=== PATIENT | male | born 1965 | race Caucasian/White ===

== ENCOUNTER → 2016-07-07 | Outpatient (REF) | payer MEDICARE, MEDICAID, OTHER ==
[~2016-07-07] MED LIST: /AUGM875TA; AMLO10TA PO; AUGM875T27 PO; ENAL20TA; ENAL20TA PO; ENAL5TAB; ENALAPRIL; GLUC500T; HUMA75VL; HYDR12.55 PO; INSUHUMDS IV; INSULADS SUBQ; LASI40TA PO; OMEGCAP4 PO; PERCOCET PO; SITA50TAB PO; TRIC145T PO; VITA50003 PO
== END | disposition home or self-care (01) ==
LOC: M LAB REF 12:37
PROVIDERS: ATTEND Surgery
DX: E11.621 Type 2 diabetes mellitus with foot ulcer (principal); L97.412 Non-pressure chronic ulcer of right heel and midfoot with fat layer exposed

== ENCOUNTER → 2016-07-23 | Outpatient (CLI) | payer OTHER ==
--- NOTE | 2016-07-23 12:31 | REP ---
MRI RIGHT FOOT WITHOUT AND WITH IV GADOLINIUM: HISTORY: Type 2 diabetes. Ulcer on the bottom lateral aspect of the right foot. Comparison radiographs October 29, 2013. TECHNIQUE: Sagittal axial and coronal imaging planes utilized for T1 proton density and T2-weighted scans obtain in the usual fashion with without fat saturation. Post-gadolinium enhanced T1 weighted scanning was performed. Gadolinium enhancement dose 13 mL of intravenous ProHance. Half dose protocol. MR FINDINGS: There is advanced neuropathic arthropathy affecting the right midfoot. The 5th toe has been amputated at the level of the proximal end of the 5th metatarsal. Cortical and medullary bone signal intensity are normal in the metatarsals and phalanges. There is dermal thickening and subdermal edema laterally and inferiorly. A skin defect consistent with a wound is seen on the volar aspect adjacent to the proximal 4th and 5th metatarsal tarsal joint region. There is some contrast enhancement in this soft tissue but no evidence of abscess or osteomyelitis is seen. 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 Soft tissue defect and considerable edema in the soft tissues. Status post amputation of the 5th digit. No MR evidence of osteomyelitis or abscess seen. Signed by Roney Owen MD 07/23/2016 02:40 P
== END | disposition home or self-care (01) ==
LOC: M RAD 08:47
PROVIDERS: ATTEND Surgery
DX: E11.621 Type 2 diabetes mellitus with foot ulcer (principal); Z89.421 Acquired absence of other right toe(s); M14.671 Charcot's joint, right ankle and foot
CPT/HCPCS: 73720; A9576

== ENCOUNTER → 2016-11-08 | Outpatient (CLI) | payer MEDICARE ==
[2016-11-08 14:14] LABS: CALCIUM LEVEL 9.3 MG/DL (8.5-10.1); CREATININE FOR GFR 1.56 MG/DL (0.70-1.30); GLOMERULAR FILTRATION RATE 50.4 (>56); POTASSIUM SERUM 4.5 MEQ/L (3.5-5.1)
== END ==
LOC: M SMT 11:14
PROVIDERS: ATTEND Nurse Practitioner Family
DX: I10 Essential (primary) hypertension (principal)

== ENCOUNTER → 2016-11-24 | Outpatient (CLI) | payer MEDICARE | LOC: M SMT 08:57 | PROVIDERS: ATTEND Nurse Practitioner Family | DX: E55.9 Vitamin D deficiency, unspecified (principal); E78.4 Other hyperlipidemia ==

== ENCOUNTER → 2017-07-29 | Outpatient (CLI) | payer MEDICARE ==
[2017-07-29 14:21] LABS: CHOLESTEROL LEVEL 128 MG/DL (<200); CHOLESTEROL RISK RATIO 4.923 (<5); HDL CHOLESTEROL 26 MG/DL (>40); LDL CHOLESTEROL 45.2 MG/DL (<100); NON-HDL-C 102 MG/DL; TRIGLYCERIDES LEVEL 284 MG/DL (<150)
== END ==
LOC: M SMT 08:36
DX: E78.4 Other hyperlipidemia (principal)

== ENCOUNTER → 2017-07-29 | Outpatient (CLI) | payer MEDICARE ==
[2017-07-29 14:16] LABS: TOTAL 25(OH) VITAMIN D 26.4 NG/ML (30.0-100.0)
[2017-07-29 14:20] LABS: ALBUMIN 3.8 GM/DL (3.2-5.2); ALBUMIN/GLOBULIN RATIO 1.03 (1.00-1.93); ALKALINE PHOSPHATASE 46 U/L (45-117); ALT/SGPT 40 U/L (12-78); ANION GAP 6 MEQ/L (8-16); AST/SGOT 25 U/L (7-37); BILIRUBIN,TOTAL 0.2 MG/DL (0.2-1.0); BLOOD UREA NITROGEN 37 MG/DL (7-18); CALCIUM LEVEL 9.7 MG/DL (8.5-10.1); CARBON DIOXIDE LEVEL 28 MEQ/L (21-32); CHLORIDE LEVEL 104 MEQ/L (98-107); CHOLESTEROL LEVEL 127 MG/DL (<200); CREATININE FOR GFR 1.78 MG/DL (0.70-1.30); GLOMERULAR FILTRATION RATE 43.1 (>56); GLUCOSE, FASTING 205 MG/DL (70-100); HDL CHOLESTEROL 25 MG/DL (>40); LDL CHOLESTEROL 45.8 MG/DL (<100); NON-HDL-C 102 MG/DL; POTASSIUM SERUM 4.8 MEQ/L (3.5-5.1); SODIUM LEVEL 138 MEQ/L (136-145); TOTAL PROTEIN 7.5 GM/DL (6.4-8.2); TRIGLYCERIDES LEVEL 281 MG/DL (<150)
[2017-07-29 15:07] LABS: MAU/CREAT RATIO 438.8 MCG/MG (0.0-30.0)
== END ==
LOC: M SMT 08:42
DX: E11.65 Type 2 diabetes mellitus with hyperglycemia (principal); Z79.4 Long term (current) use of insulin; E55.9 Vitamin D deficiency, unspecified; E78.4 Other hyperlipidemia
CPT/HCPCS: 84443

== ENCOUNTER → 2018-02-23 | Outpatient (CLI) | payer MEDICARE ==
[2018-02-23 14:18] LABS: CHOLESTEROL LEVEL 119 MG/DL (<200); HDL CHOLESTEROL 25 MG/DL (>40); LDL CHOLESTEROL 51.8 MG/DL (<100); NON-HDL-C 94 MG/DL; TRIGLYCERIDES LEVEL 211 MG/DL (<150)
== END ==
LOC: M SMT 09:11
DX: E78.4 Other hyperlipidemia (principal)
CPT/HCPCS: 80061

== ENCOUNTER → 2018-03-09 | Outpatient (REF) | payer MEDICARE ==
[2018-03-09 15:09] LABS: FERRITIN 94 NG/ML (26-388); IRON (FE) 64 UG/DL (65-175); PERCENT SATURATION 20.6 % (19.7-50.0); TOTAL IRON BINDING CAPACITY 310 UG/DL (250-450)
[2018-03-09 16:48] LABS: FOLATE 12.9 NG/ML (>5.4); VITAMIN B12 LEVEL 374 PG/ML (247-911)
== END ==
LOC: M LAB REF 14:20
DX: D64.9 Anemia, unspecified (principal)
CPT/HCPCS: 82746

== ENCOUNTER → 2018-04-27 | Outpatient (CLI) | payer MEDICARE, MEDICAID ==
[2018-04-27 18:00] LABS: TOTAL 25(OH) VITAMIN D 26.8 NG/ML (30.0-100.0)
[2018-04-30 00:06] LABS: PSA TOTAL 0.4 ng/mL (0.0-4.0)
== END ==
LOC: M SMT 10:34
DX: E55.9 Vitamin D deficiency, unspecified (principal); Z12.5 Encounter for screening for malignant neoplasm of prostate; Z79.899 Other long term (current) drug therapy
CPT/HCPCS: 82306

== ENCOUNTER → 2018-05-18 | Outpatient (REF) | payer BC ==
[~2018-05-18] MED LIST changes: -AUGM875T27 PO; +AUGM875T28 PO; -TRIC145T PO; +TRIC145T22 PO; -VITA50003 PO; +VITA50005 PO
[2018-05-18 13:10] LABS: HEMATOCRIT 38.1 % (42.0-52.0); HEMOGLOBIN 12.4 g/dl (13.5-17.5); MEAN CORPUSCULAR HEMOGLOBIN 29.7 pg (27.0-33.0); MEAN CORPUSCULAR HGB CONC 32.5 g/dl (32.0-36.5); MEAN CORPUSCULAR VOLUME 91.1 fl (80.0-96.0); PLATELET COUNT, AUTOMATED 314 10^3/uL (150-450); RED BLOOD COUNT 4.18 10^6/uL (4.30-6.10)
[2018-05-18 13:35] LABS: ALBUMIN 3.3 GM/DL (3.2-5.2); BILIRUBIN,TOTAL 0.2 MG/DL (0.2-1.0); C REACTIVE PROTEIN QUANTITATIV 0.39 MG/DL (0.00-0.30); CALCIUM LEVEL 9.3 MG/DL (8.5-10.1); CREATININE FOR GFR 1.63 MG/DL (0.70-1.30); ERYTHROCYTE SEDIMENTATION RATE 44 mm/hr (0-20); GLOMERULAR FILTRATION RATE 47.7 (>56); POTASSIUM SERUM 4.6 MEQ/L (3.5-5.1); TOTAL PROTEIN 7.4 GM/DL (6.4-8.2)
== END ==
LOC: M LAB REF 12:26
PROVIDERS: ATTEND Surgery
DX: E11.621 Type 2 diabetes mellitus with foot ulcer (principal)

== ENCOUNTER 2018-09-30 21:07 | Emergency (ER) | payer MEDICARE, MEDICAID ==
[~2018-09-30] VITALS: Ht 177.8 cm; Wt 125.0 kg
[~2018-09-30 21:07] MED LIST changes: -LASI40TA PO; +LASI40TA9 PO
[2018-09-30 21:08] VITALS: BP 145/72
[2018-09-30] MEDS ORDERED: LEVA1TAB2 PO (21:39)
[2018-09-30] MEDS: LevoFLOXacin 500 MG TABLET PO ONE (21:45)
[2018-09-30] MEDS: LIDOCAINE 1% SDV 5 ML VIAL DILUENT ONE (21:45)
[2018-09-30] MEDS: cefTRIAXone SOD 1 GM VIAL (J0696) IM ONE (21:45)
== END 2018-09-30 21:55 | disposition home or self-care (01) ==
LOC: M ED 21:07
DX: L03.116 Cellulitis of left lower limb (principal); I12.9 Hypertensive chronic kidney disease with stage 1 through stage 4 chronic kidney disease, or unspecified chronic kidney disease; E11.9 Type 2 diabetes mellitus without complications; K21.9 Gastro-esophageal reflux disease without esophagitis; Z79.4 Long term (current) use of insulin; Z79.899 Other long term (current) drug therapy
CPT/HCPCS: 96372; 99282; J0696

== ENCOUNTER → 2018-11-09 | Outpatient (REF) | payer MEDICARE, MEDICAID, OTHER ==
[~2018-11-09] MED LIST changes: +LEVA1TAB2 PO
[2018-11-09 14:21] LABS: HEMOGLOBIN A1c 6.2 %
[2018-11-09 14:24] LABS: CHOLESTEROL RISK RATIO 4.461 (<5)
== END ==
LOC: M LAB REF 13:36
PROVIDERS: ATTEND Nurse Practitioner Family
DX: E11.9 Type 2 diabetes mellitus without complications (principal)

== ENCOUNTER → 2018-11-17 | Outpatient (CLI) | payer MEDICARE, MEDICAID ==
--- NOTE | 2018-11-18 07:35 | REP ---
REASON: Palpable ventral hernia. Multiple sonographic images of the intra-abdominal wall show no evidence of a ventral hernia. Areas of decreased echoes were seen deep in the deepest subcutanea suggestive of edematous thickened tissue. This was seen to the left of the umbilicus and needs to be correlated clinically. IMPRESSION: No hernia. Findings as described above. Electronically Signed by Christos Carrillo DO 11/18/2018 08:29 A
== END ==
LOC: M RAD 14:43
PROVIDERS: ATTEND Nurse Practitioner Family
DX: Z87.19 Personal history of other diseases of the digestive system (principal)

== ENCOUNTER → 2018-12-25 | Outpatient (CLI) | payer MEDICARE, MEDICAID ==
--- NOTE | 2018-12-25 09:06 | REP ---
Bilateral lower extremity arterial duplex ultrasound: Right lower extremity: Right brachial artery peak systole: 128 mmHg. Right dorsalis pedis peak systole: 158 mmHg. Right HAND BOX FOLDER peak systole 146 mmHg. Right ZAHIRA: 1.2 Peak Systolic Phasicity Velocity TANK TRUCK ENGINE MECHANIC 128.1 triphasic Profunda 97.0 no biphasic SFA prox 114.2 triphasic SFA mid 115.0 triphasic SFA dist 124.4 triphasic Pop 92.5 triphasic GIN prox 52.9 biphasic Tib/P tr 90.6 triphasic HAND BOX FOLDER pr 74.0 triphasic HAND BOX FOLDER dst 100.3 triphasic GIN dst 93.2 triphasic t Left lower extremity: Left brachial artery peak systole: 100 mmHg. Left dorsalis pedis peak systole: 152 mmHg. HAND BOX FOLDER peak systole: 138 mmHg. ZAHIRA 1.2 Peak Systolic Phasicity Velocity TANK TRUCK ENGINE MECHANIC 94.8 triphasic Profunda 78.7 triphasic SFA prox 99.0 triphasic SFA mid 120.7 triphasic SFA dist 106.3 triphasic Pop 94.8 triphasic GIN prox 55.9 triphasic Tib/P tr 67.1 triphasic HAND BOX FOLDER pr 48.1 triphasic HAND BOX FOLDER dst 56.5 triphasic GIN dst 54.5 triphasic There is mild atheromatous plaque bilaterally. There are triphasic waveforms bilaterally except for a biphasic wave form in the right profunda. No significant stenosis is identified on the right or the left. Electronically Signed by Dm Pinedo MD 12/25/2018 08:57 A
== END ==
LOC: M RAD 07:26
PROVIDERS: ATTEND Physician Assistant
DX: I25.10 Atherosclerotic heart disease of native coronary artery without angina pectoris (principal); E11.621 Type 2 diabetes mellitus with foot ulcer

== ENCOUNTER → 2019-01-19 | Outpatient (REF) | payer MEDICARE, MEDICAID | LOC: M SFHCPLAZ 12:24 → M LAB REF 12:24 | PROVIDERS: ATTEND Physician Assistant | DX: D18.01 Hemangioma of skin and subcutaneous tissue (principal); E11.621 Type 2 diabetes mellitus with foot ulcer ==

== ENCOUNTER → 2019-02-08 | Outpatient (REF) | payer MEDICARE, MEDICAID | LOC: M LAB LCGH 09:35 | PROVIDERS: ATTEND Nurse Practitioner Family | DX: L85.9 Epidermal thickening, unspecified (principal); L91.8 Other hypertrophic disorders of the skin; R23.8 Other skin changes ==

== ENCOUNTER 2019-02-25 19:10 | Emergency (ER) | payer MEDICARE, MEDICAID ==
[~2019-02-25] VITALS: Ht 177.8 cm; Wt 131.8 kg
[2019-02-25 20:21] LABS: BASO % 0.3 % (0.0-1.0); EOS % 0.2 % (0.0-3.0); HEMATOCRIT 39.3 % (42.0-52.0); HEMOGLOBIN 13.5 g/dl (13.5-17.5); LYMPH # 0.3 10^3/uL (1.5-4.5); LYMPH % 2.2 % (24.0-44.0); MEAN CORPUSCULAR HEMOGLOBIN 30.3 pg (27.0-33.0); MEAN CORPUSCULAR HGB CONC 34.4 g/dl (32.0-36.5); MEAN CORPUSCULAR VOLUME 88.3 fl (80.0-96.0); MONO # 0.6 10^3/uL (0.0-0.8); MONO % 3.6 % (0.0-5.0); NEUTROPHILS # 14.4 10^3/uL (1.8-7.7); PLATELET COUNT, AUTOMATED 279 10^3/uL (150-450); RED BLOOD COUNT 4.45 10^6/uL (4.30-6.10); WHITE BLOOD COUNT 15.5 10^3/uL (4.0-10.0)
[2019-02-25 20:49] LABS: ALBUMIN 3.3 GM/DL (3.2-5.2); BILIRUBIN,TOTAL 0.4 MG/DL (0.2-1.0); CREATININE FOR GFR 2.12 MG/DL (0.70-1.30); GLOMERULAR FILTRATION RATE 35.1 (>56); POTASSIUM SERUM 3.8 MEQ/L (3.5-5.1); TOTAL PROTEIN 7.3 GM/DL (6.4-8.2)
[2019-02-25] MEDS ORDERED: ACETAMINOPHEN 325 MG TAB PO ONE (21:15)
[2019-02-25 21:27] LABS: C REACTIVE PROTEIN QUANTITATIV 1.32 MG/DL (0.00-0.30)
[2019-02-25 21:44] LABS: ERYTHROCYTE SEDIMENTATION RATE 27 mm/hr (0-20)
[2019-02-25] MEDS ORDERED: NS 1,000 ML IV ONE (22:15)
[2019-02-25] MEDS ORDERED: cefTRIAXone SOD 2 GM in D5W MINI-BAG PLUS 50 ML IV ONE (22:45)
[2019-02-25] MEDS ORDERED: AUGM875T28 PO (23:56)
[2019-02-26 00:04] VITALS: BP 105/55
--- NOTE | 2019-02-27 08:44 | REP ---
Clinical: Fever . Comparison: 07/26/2013 . Technique: PA and lateral. Findings: The mediastinum and cardiac silhouette are normal. The lung hagen are clear and without acute consolidation, effusion, or pneumothorax. The skeletal structures are intact and normal. Impression: 1. No acute cardiopulmonary process. Electronically Signed by Arya Cuba MD 02/26/2019 01:07 A
== END 2019-02-26 00:46 | disposition home or self-care (01) ==
LOC: M ED 19:10
DX: L03.115 Cellulitis of right lower limb (principal); L03.116 Cellulitis of left lower limb; E11.9 Type 2 diabetes mellitus without complications; I10 Essential (primary) hypertension; K21.9 Gastro-esophageal reflux disease without esophagitis; Z79.899 Other long term (current) drug therapy; Z79.4 Long term (current) use of insulin
CPT/HCPCS: 71046; 80053; 83605; 85025; 85652; 86140; 87040; 96361; 96365; 99283; J0696

== ENCOUNTER → 2019-03-28 | Outpatient (REF) | LOC: M LAB LCGH 13:15 | PROVIDERS: ATTEND Nurse Practitioner Family | DX: L91.8 Other hypertrophic disorders of the skin (principal); R23.8 Other skin changes ==

== ENCOUNTER → 2019-04-26 | Outpatient (REF) | payer MEDICARE, MEDICAID ==
[2019-04-26 12:26] LABS: HEMATOCRIT 41.5 % (42.0-52.0); HEMOGLOBIN 13.9 g/dl (13.5-17.5); MEAN CORPUSCULAR HGB CONC 33.5 g/dl (32.0-36.5); MEAN CORPUSCULAR VOLUME 92.6 fl (80.0-96.0); PLATELET COUNT, AUTOMATED 295 10^3/uL (150-450); RED BLOOD COUNT 4.48 10^6/uL (4.30-6.10); WHITE BLOOD COUNT 5.1 10^3/uL (4.0-10.0)
[2019-04-26 12:41] LABS: ALBUMIN 3.7 GM/DL (3.2-5.2); BILIRUBIN,TOTAL 0.4 MG/DL (0.2-1.0); CALCIUM LEVEL 9.3 MG/DL (8.5-10.1); CREATININE FOR GFR 1.62 MG/DL (0.70-1.30); GLOMERULAR FILTRATION RATE 47.9 (>56); POTASSIUM SERUM 4.5 MEQ/L (3.5-5.1); TOTAL PROTEIN 7.4 GM/DL (6.4-8.2)
== END ==
LOC: M SFHCPLAZ 12:12
PROVIDERS: ATTEND Physician Assistant
DX: E11.621 Type 2 diabetes mellitus with foot ulcer (principal)

== ENCOUNTER → 2019-06-22 | Outpatient (CLI) | payer MEDICARE ==
[2019-06-22 18:25] LABS: ALBUMIN 2.5 GM/DL (3.2-5.2); ALT/SGPT 24 U/L (12-78); BILIRUBIN,DIRECT < 0.1 MG/DL (0.0-0.2); BILIRUBIN,TOTAL 0.2 MG/DL (0.2-1.0); BLOOD UREA NITROGEN 26 MG/DL (7-18); CALCIUM LEVEL 8.4 MG/DL (8.5-10.1); CARBON DIOXIDE LEVEL 24 MEQ/L (21-32); CHLORIDE LEVEL 110 MEQ/L (98-107); CREATININE FOR GFR 1.69 MG/DL (0.70-1.30); GLOMERULAR FILTRATION RATE 45.4 (>56); GLUCOSE, FASTING 121 MG/DL (70-100); NT-PRO BNP 188 PG/ML (<125); SODIUM LEVEL 142 MEQ/L (136-145); TOTAL PROTEIN 5.9 GM/DL (6.4-8.2)
== END ==
LOC: M PLALAB 14:16
PROVIDERS: ATTEND Student in an Organized Health Care Education/Training Program
DX: I10 Essential (primary) hypertension (principal); E11.621 Type 2 diabetes mellitus with foot ulcer; L97.413 Non-pressure chronic ulcer of right heel and midfoot with necrosis of muscle
CPT/HCPCS: 36415; 80048; 80076; 83880; G0277

== ENCOUNTER → 2019-06-22 | Outpatient (REF) | payer MEDICARE | LOC: M SFHCPLAZ 07:33 | PROVIDERS: ATTEND Family Medicine | DX: I10 Essential (primary) hypertension (principal); Z53.8 Procedure and treatment not carried out for other reasons ==

== ENCOUNTER → 2019-07-05 | Outpatient (CLI) | payer MEDICARE ==
--- NOTE | 2019-07-05 21:03 | REP ---
Clinical: Hypertension and chronic medical renal disease. Technique: Rosa scale and color Doppler evaluation of the kidneys and renal vasculature using curved array transducer. Findings: The kidneys demonstrate renovascular calcifications and increased central sinus fat consistent with chronic renal disease. No hydronephrosis. Right kidney measures 15.1 x 8.5 x 7.2 cm . Left kidney measures 15.0 x 7.0 x 7.4 cm and includes 1.1 cm and 1.3 cm lower pole cysts . Bladder is incompletely distended and grossly normal by current evaluation. Color Doppler evaluation of the renal vasculature demonstrates normal arterial wave patterns, velocities, renal aortic ratios, resistive indices and the acceleration time. No sonographic evidence for renal arterial stenosis noted. Renal vein is patent. Right Kidney: Peak arterial velocity: 153 cm/sec . Renal aortic ratio: 1.2 . Resistive indices: 0.71 - 0.82 . Acceleration times: 0.02 - 0.03 . Left kidney: Peak arterial velocity: 190 cm/sec . Renal aortic ratio: 1.5 . Resistive indices: 0.67 - 0.74 . Acceleration times: 0.02 - 0.03 . Impression: 1. Evidence for chronic medical renal disease without hydronephrosis. 2. No sonographic evidence to suggest renal arterial stenosis. Electronically Signed by Arya Cuba MD 07/05/2019 08:54 P
--- NOTE | 2019-07-05 21:05 | REP ---
Clinical: Urinary frequency. Technique: Real time haney scale and color evaluation using curved array transducer. Findings: The bladder is normal in appearance and without wall thickening or mass lesion. Bilateral ureteral jets are identified. Prevoid bladder measures 9.2 x 5.9 x 3.8 cm (135 ml). Postvoid bladder measures 7.6 x 3.8 x 2.8 cm (53 ml). Postvoid residual equals 39%. Impression: Increased postvoid residual volume. Electronically Signed by Arya Cuba MD 07/05/2019 08:56 P
== END ==
LOC: M RAD 06:58
PROVIDERS: ATTEND Nurse Practitioner Family
DX: N18.3 Chronic kidney disease, stage 3 (moderate) (principal)

== ENCOUNTER → 2019-07-09 | Outpatient (CLI) | payer MEDICARE ==
--- NOTE | 2019-07-09 20:42 | REP ---
Clinical: Charcot's foot. Technique: AP, lateral, bilateral oblique views of the right foot. Comparison: 10/29/2013 Findings: Evidence for prior amputation to the fifth toe. Extensive destructive and dystrophic changes involving the midfoot consistent with the given history of Charcot foot and essentially unchanged when compared to prior examination. Overlying soft tissues are grossly unremarkable and without subcutaneous emphysema or foreign body. Impression: Extensive destructive and dystrophic changes to the midfoot consistent with Charcot's foot and essentially unchanged. Electronically Signed by Arya Cuba MD 07/09/2019 08:34 P
== END ==
LOC: M RAD 10:07
PROVIDERS: ATTEND Physician Assistant
DX: E11.9 Type 2 diabetes mellitus without complications (principal)

== ENCOUNTER → 2019-07-13 | Outpatient (REF) | payer MEDICARE ==
[2019-07-13 14:31] LABS: ALBUMIN 2.3 GM/DL (3.2-5.2); CALCIUM LEVEL 8.6 MG/DL (8.5-10.1); CREATININE FOR GFR 1.72 MG/DL (0.70-1.30); GLOMERULAR FILTRATION RATE 44.5 (>56); MAGNESIUM LEVEL 1.9 MG/DL (1.8-2.4); PHOSPHORUS LEVEL 3.8 MG/DL (2.5-4.9); POTASSIUM SERUM 4.1 MEQ/L (3.5-5.1); URIC ACID 3.8 MG/DL (3.5-7.2)
== END ==
LOC: M LAB REF 14:04
PROVIDERS: ATTEND Nurse Practitioner Family
DX: N18.3 Chronic kidney disease, stage 3 (moderate) (principal); M10.9 Gout, unspecified; E83.42 Hypomagnesemia

== ENCOUNTER → 2020-03-03 | Outpatient (CLI) | payer MEDICARE, MEDICAID ==
[~2020-03-03] MED LIST changes: -ENAL20TA PO; +ENAL20TA11 PO
[2020-03-03 18:24] LABS: CALCIUM LEVEL 9.3 MG/DL (8.5-10.1); CREATININE FOR GFR 3.18 MG/DL (0.70-1.30); GLOMERULAR FILTRATION RATE 21.9 (>56)
[2020-03-03 18:38] LABS: HEMOGLOBIN A1c 6.5 %
== END ==
LOC: M PLALAB 15:48
PROVIDERS: ATTEND Internal Medicine Endocrinology, Diabetes & Metabolism
DX: I15.8 Other secondary hypertension (principal); E11.65 Type 2 diabetes mellitus with hyperglycemia; Z79.4 Long term (current) use of insulin

== ENCOUNTER → 2020-04-18 | Outpatient (REF) | payer MEDICARE ==
[2020-04-18 17:49] LABS: CALCIUM LEVEL 9.5 MG/DL (8.5-10.1); CREATININE FOR GFR 3.52 MG/DL (0.70-1.30); GLOMERULAR FILTRATION RATE 19.5 (>56); POTASSIUM SERUM 3.7 MEQ/L (3.5-5.1)
== END ==
LOC: M SFHCPLAZ 14:47
PROVIDERS: ATTEND Family Medicine
DX: I10 Essential (primary) hypertension (principal)

== ENCOUNTER → 2020-04-21 | Outpatient (CLI) | payer MEDICAID, MEDICARE ==
--- NOTE | 2020-04-21 17:22 | REP ---
INDICATION: UNCP ATHSCL LI ART OF EXT, AMELIA LEGS, VENOUS INSUF COMPARISON: 12/25/2018 TECHNIQUE: Real time rosa scale and color Doppler evaluation of the bilateral lower extremity arterial vasculature using linear high frequency transducer. FINDINGS: Rosa scale and color images demonstrate elevated velocities bilaterally along with triphasic wave patterns. Moderate to significant calcified atheromatous plaquing noted bilaterally. Evaluation is significantly limited due to edema and body habitus. No definite evidence for stenosis or occlusion noted. Peak systolic velocities (cm/sec) Common femoral artery: Right 179; Left 142 Profunda femoris: Right 99; Left 105 SFA (proximal): Right 190; Left 177 SFA (mid): Right 199; Left 202 SFA (distal): Right 156; Left 103 Popliteal artery: Right 151; Left 104 GIN (prox.): Right not visualized; Left not visualized Tibioperoneal trunk: Right 176; Left not visualized DIAMOND SETTER APPRENTICE (prox.): Right not visualized; Left not visualized DIAMOND SETTER APPRENTICE (distal): Right 142; Left 118 GIN (distal): Right 146; Left 67 IMPRESSION: 1. High velocities noted bilaterally (right greater than left) may reflect underlying infectious/inflammatory process. 2. Limited examination demonstrates extensive atheromatous plaquing. No obvious focal stenosis or occlusion identified. <Electronically signed by Arya Cuba > 04/21/20 [id number]
--- NOTE | 2020-04-21 17:54 | REP ---
INDICATION: VENOUS INSUFFICEINCY, EVAL FOR REFLUX COMPARISON: 10/29/2013 TECHNIQUE: Rosa scale and color Doppler evaluation of the bilateral lower extremities using linear high frequency transducer. Reflux evaluation performed. FINDINGS: Ultrasound examination of the right and left lower extremity deep venous structures from the common femoral vein to the popliteal vein demonstrates normal compressibility flow and wave patterns in response to respiration and augmentation. There is no evidence for deep venous thrombosis. Incidental 2.8 x 1.1 x 1.7 cm Garza's cyst in the left popliteal fossa. Evaluation of the right lower extremity demonstrates very minimal reflux through the deep venous structures. No evidence for reflux through the greater saphenous vein or superficial system. Evaluation of the left lower extremity demonstrates dilated veins with pulsatile flow possibly related to underlying cardiac disease. There is no evidence for reflux through the deep or superficial system. IMPRESSION: No evidence for deep venous thrombosis. No significant reflux. Findings as described above. <Electronically signed by Arya Cuba > 04/21/20 [id number]
== END ==
LOC: M RAD 12:32
PROVIDERS: ATTEND Physician Assistant
DX: I70.203 Unspecified atherosclerosis of native arteries of extremities, bilateral legs (principal); I83.813 Varicose veins of bilateral lower extremities with pain; M79.601 Pain in right arm; I87.2 Venous insufficiency (chronic) (peripheral)

== ENCOUNTER → 2020-04-29 | Outpatient (CLI) | payer MEDICARE ==
--- NOTE | 2020-04-30 06:57 | ECHO ---
DATE OF PROCEDURE: 04/29/2020 Age: 54 Gender: Male Height: 178 cm Weight: 149 kg REFERRING PHYSICIAN: Haley Morales MD INDICATION: Edema MEASUREMENTS: IVS 1.5 LV 5.3 LVPW 1.5 LA 4.5 Aorta 3.5 IVC 1.7. Mitral E wave 72, A wave 82 E prime septal 5.5 A prime lateral 8.6 FINDINGS: The study is of difficult technical quality corresponding to the patient's body habitus. The patient is in sinus rhythm. Normal LV size with moderate left ventricular hypertrophy (LVH) and preserved LV systolic function. Estimated ejection fraction (EF) approximately 70%. Right ventricle was poorly visualized, but does not appear grossly enlarged. Both atria are at least mildly enlarged. Aortic, mitral and tricuspid valves were reasonably well seen and appear normal. Pulmonic valve was not well seen. No pericardial effusion is noted. Inferior vena cava was poorly visualized, but appears to have normal caliber indicative of likely normal central venous pressure. Aortic root is normal. Aortic arch and abdominal aorta were not seen. Doppler interrogation reveals competent aortic valve. There is trace mitral and trace tricuspid insufficiency. Calculated pulmonary artery pressure is normal based on poor quality TR jet. Mitral inflow pattern and tissue Doppler imaging of mitral annulus reveal grade 1 diastolic dysfunction. CONCLUSIONS: 1. Study is of fair technical quality corresponding to the patient's body habitus. Underlying sinus rhythm. 2. Normal LV size with moderate left ventricular hypertrophy, preserved LV systolic function, estimated left ventricular ejection fraction (LVEF) 70%. Grade 1 diastolic dysfunction. 3. No significant valvular disease. 4. Suggestive of normal central venous pressure and likely normal pulmonary artery pressure. COMMENTS: No obvious explanation for edema. MTDD
== END ==
LOC: M CARPUL 11:28
PROVIDERS: ATTEND Student in an Organized Health Care Education/Training Program
DX: R60.9 Edema, unspecified (principal)

== ENCOUNTER → 2020-06-03 | Outpatient (REF) | payer MEDICARE ==
[2020-06-03 18:24] LABS: PERCENT SATURATION 30.9 % (19.7-50.0)
== END ==
LOC: M LAB REF 17:08
PROVIDERS: ATTEND Nurse Practitioner Family
DX: D50.9 Iron deficiency anemia, unspecified (principal)

== ENCOUNTER → 2020-06-12 | Outpatient (CLI) | payer MEDICARE ==
--- NOTE | 2020-06-12 09:44 | REP ---
INDICATION: FREQUENCY OF MICTURITION (W/PVR). COMPARISON: None. TECHNIQUE: Real-time ultrasound images of the bladder FINDINGS: The filled urinary bladder contains 282 mL fluid. The postvoid bladder volume is 12 mL. The postvoid residual is 4%. The bladder wall is 2 mm thickness and otherwise unremarkable. No bladder wall abnormalities are identified. With Doppler assessment mineral unable to identify ureteral jets into the bladder. The patient is states that he had been NPO prior to the examination. IMPRESSION: No evidence of significant bladder retention. <Electronically signed by Dm Pinedo > 06/12/20 [id number]
== END ==
LOC: M RAD 07:39
PROVIDERS: ATTEND Nurse Practitioner Family
DX: R35.0 Frequency of micturition (principal)

== ENCOUNTER → 2020-07-22 | Outpatient (CLI) | payer MEDICAID, MEDICARE ==
--- NOTE | 2020-07-23 14:16 | SLEEPCENT ---
NOCTURNAL POLYSOMNOGRAPHY DATE: 07/22/2020 ORDERED BY: Monika Figueroa NP Nocturnal polysomnography was performed for evaluation of sleep physiology in this patient with a history of disrupted sleep and excessive somnolence 8 hours and 9 minutes of data were reviewed. There were 369 minutes of sleep identified. Sleep latency was normal at 10 minutes. REM sleep was delayed at 164 minutes. Sleep architecture was initially fragmented and improvement was seen after interventions were made. Overall sleep efficiency was 76.5%. The electrocardiogram showed a sinus rhythm with an average heart rate of 75 beats per minute. Rate range 65 to 90. EEG showed reasonably normal waveforms for wake and sleep stages. There was some mild artifactual change, but no focal events were identified. There were 169 respiratory events identified of 10 seconds in duration or greater for an apnea-hypopnea index of 27.5. The events were obstructive and associated with oxygen desaturations into the 70s. Having clearly established the presence of obstructive sleep apnea syndrome early in testing, the study was stopped shortly after 11 p.m. for the application of pressure therapy. The patient was then fit with a ResMed AirFit F20 full face mask of medium size, 5 cm of water pressure were applied to the circuit, and the lights were again extinguished. Over the remaining hours of testing, pressure titration was performed to an optimal pressure of 15 cm with which, the patient slept through REM without respiratory event or oxygen desaturation. On review of the entire record, some significant limb activity was also appreciated. However, the limb movement arousal index was only 5. IMPRESSION: Severe obstructive sleep apnea syndrome (G47.33), apnea-hypopnea index 27.5. RECOMMENDATION: Nightly use of pressure therapy 15 cm of water.
== END ==
LOC: M SLEEP 20:00
PROVIDERS: ATTEND Nurse Practitioner Adult Health
DX: G47.33 Obstructive sleep apnea (adult) (pediatric) (principal)

== ENCOUNTER → 2020-09-17 | Outpatient (CLI) | payer OTHER ==
--- NOTE | 2020-09-17 16:31 | REP ---
INDICATION: CKD IV. COMPARISON: 07/05/2019. TECHNIQUE: Multiple ultrasonographic images of the kidneys. FINDINGS: The right kidney measures 14.8 x 7.8 x 7.4 cm. The left kidney measures 15.2 x 6.4 by 7.5 cm. The kidneys are normal size. There is increased renal sinus fat bilaterally compatible with chronic renal disease. There is no hydronephrosis or hydroureter on the right or the left. No renal calculi are identified. No solid renal masses are identified. There is a 1.4 cm cyst laterally at the right renal lower pole. There is a 1.5 cm cyst at the left renal lower pole. There is a 1.4 cm cyst at the left renal lower pole. All of the cysts appear to be Bosniak type 1 cysts. Bladder: The bladder is nondistended and cannot be evaluated. IMPRESSION: There are bilateral renal cysts as described. <Electronically signed by Dm Pinedo > 09/17/20 [id number]
== END ==
LOC: M RAD 13:08
PROVIDERS: ATTEND Nurse Practitioner Family
DX: N18.4 Chronic kidney disease, stage 4 (severe) (principal); N28.1 Cyst of kidney, acquired

== ENCOUNTER → 2020-10-01 | Outpatient (CLI) | payer OTHER ==
--- NOTE | 2020-10-03 13:55 | ECHO ---
DATE OF PROCEDURE: 10/01/2020 Age: 55 Gender: Male Height: 167 cm Weight: 64 kg REFERRING PHYSICIAN: Haley Morales M.D. INDICATION: Localized edema, unspecified. MEASUREMENTS: 2D Measurements: Left ventricle diastole 5.1 cm Inferior vena cava 1.54 cm Posterior wall 1.45 cm Left atrium 4.2 cm Aortic root 3.4 cm Inferior vena cava 1.7 cm (more than 50% respiratory variation) Doppler Measurements: No aortic stenosis No aortic regurgitation Aortic valve velocity 138 cm/s LVOT velocity 90.3 cm/s Trace mitral regurgitation Mitral E velocity 88.1 cm/s Mitral A velocity 79.9 cm/s Mitral deceleration time 222 msec Trace tricuspid regurgitation No pulmonic regurgitation Pulmonary artery acceleration time 124 msec MITRAL ANNULAR TISSUE DOPPLER E prime septal 8.4 cm/s, E prime lateral 10.9 cm/s DESCRIPTION: Rhythm was sinus. Image quality was adequate. No pericardial effusion. This was a 2D, M-mode, color flow Doppler, and pulsed wave Doppler examination including mitral annular tissue Doppler. CONCLUSIONS: 1. Moderate concentric left ventricular hypertrophy. Normal regional LV wall motion and wall thickening. Normal LV systolic function. LVEF 65% by visual estimate. Normal LV diastolic function. Normal peak systolic lateral strain pattern. 2. Mild left atrial dilatation. 3. Otherwise normal appearing echocardiogram Doppler findings. 4. Suggestive of central venous pressure in the range of 5-10 mmHg. MTDD
== END ==
LOC: M CARPUL 08:10
PROVIDERS: ATTEND Student in an Organized Health Care Education/Training Program
DX: I51.89 Other ill-defined heart diseases (principal)

== ENCOUNTER → 2020-10-29 | Outpatient (CLI) | payer OTHER ==
--- NOTE | 2020-10-29 09:45 | REP ---
INDICATION: HEMATOMA OF RIGHT FOOT. COMPARISON: Comparison radiograph 09 July 2019.. TECHNIQUE: Four views of the right foot. FINDINGS: Four views of the right foot demonstrate show prior amputation of the 5th digit at the level of the proximal metatarsal. The remaining proximal 5th and the adjacent proximal 4th metatarsal appear fused. There is severe neuropathic arthropathy throughout the midfoot articulations with bony hypertrophy and fragmentation extensively noted. These findings are all unchanged. Periarticular soft tissue ossicles are noted. There is some vascular calcification. Diffuse forefoot swelling is seen. No soft tissue gas is seen. No acute bony erosive change is observed.. . No opaque foreign body noted. IMPRESSION: Advanced midfoot neuropathic arthropathy. Status post amputation 5th digital ray at the proximal metatarsal level. Overlying soft tissue swelling. No soft tissue gas or acute erosive change.. <Electronically signed by Judson Owen > 10/29/20 [id number]
== END ==
LOC: M RAD 08:23
PROVIDERS: ATTEND Physician Assistant
DX: S90.31XA Contusion of right foot, initial encounter (principal); Z89.421 Acquired absence of other right toe(s); X58.XXXA Exposure to other specified factors, initial encounter; Y92.9 Unspecified place or not applicable; Y99.9 Unspecified external cause status

== ENCOUNTER → 2020-11-05 | Outpatient (REF) | payer MEDICARE, OTHER ==
[2020-11-05 18:39] LABS: PERCENT SATURATION 29.9 % (19.7-50.0)
== END ==
LOC: M LAB REF 17:04
PROVIDERS: ATTEND Internal Medicine Nephrology
DX: N18.9 Chronic kidney disease, unspecified (principal); D63.1 Anemia in chronic kidney disease; S90.31XA Contusion of right foot, initial encounter

== ENCOUNTER → 2020-11-26 | Outpatient (REF) | payer MEDICARE, MEDICAID, OTHER ==
[~2020-11-26] MED LIST changes: +ALLO100T PO; +AMLO1TAB24 PO; +CARV6.25 PO; +DOK1CAP7 PO; +DRIS50003 PO; +FAMO40TA3 PO; +FISH1000 PO; +HYDR-3910 PO; +IRON1TAB2 PO; +ISOS1TAB13 PO; +NOVOINJ3 SC; +OMEP40CA97 PO; +OXYC10TA12 PO; +POTA20TA6 PO; +RISATAB3 PO; +ROSU10TA6 PO; +SPIR-10 PO; +TAMS1CAP17 PO; +TOUJ1.2I SC; +TRUL0.5I SC; +TRUL0.5I SQ; +[UNRECOGNIZED DRUG - OTHER] PO
== END ==
LOC: M LAB REF 12:23
PROVIDERS: ATTEND Physician Assistant
DX: S90.31XA Contusion of right foot, initial encounter (principal); X58.XXXA Exposure to other specified factors, initial encounter; Y92.9 Unspecified place or not applicable; Y99.9 Unspecified external cause status

== ENCOUNTER 2020-12-01 15:16 | Inpatient (IN) | payer MEDICARE, MEDICAID ==
[2020-12-01] VITALS (7 sets, daily range): BP systolic 155–188; BP diastolic 61–80
[~2020-12-01] VITALS: Ht 177.8 cm; Wt 146.7 kg
[~2020-12-01 15:16] MED LIST changes: -ALLO100T PO; -AMLO1TAB24 PO; -CARV6.25 PO; -DOK1CAP7 PO; -DRIS50003 PO; -FAMO40TA3 PO; -FISH1000 PO; -HYDR-3910 PO; -IRON1TAB2 PO; -ISOS1TAB13 PO; -NOVOINJ3 SC; -OMEP40CA97 PO; -OXYC10TA12 PO; -POTA20TA6 PO; -RISATAB3 PO; -ROSU10TA6 PO; -SPIR-10 PO; -TAMS1CAP17 PO; -TOUJ1.2I SC; -TRUL0.5I SC; -TRUL0.5I SQ; -[UNRECOGNIZED DRUG - OTHER] PO
[2020-12-01] MEDS ORDERED: [UNRECOGNIZED DRUG - OTHER] PO (15:30)
[2020-12-01] MEDS ORDERED: ISOS1TAB13 PO ×2 (15:30→18:50)
[2020-12-01] MEDS ORDERED: ROSU10TA6 PO ×2 (15:30→18:50)
[2020-12-01] MEDS ORDERED: ALLO100T PO ×2 (15:30→18:50)
[2020-12-01] MEDS ORDERED: AMLO1TAB24 PO ×2 (15:30→18:50)
[2020-12-01] MEDS ORDERED: CARV6.25 PO ×2 (15:30→18:50)
[2020-12-01] MEDS ORDERED: SPIR-10 PO ×2 (15:30→18:50)
[2020-12-01] MEDS ORDERED: HYDR-3910 PO ×2 (15:30→18:50)
[2020-12-01] MEDS ORDERED: TRUL0.5I SQ (15:30)
[2020-12-01] MEDS ORDERED: POTA20TA6 PO ×2 (15:30→18:50)
[2020-12-01] MEDS ORDERED: OXYC10TA12 PO ×2 (15:30→18:50)
[2020-12-01] MEDS ORDERED: NS 1,000 ML IV ONE (15:50)
[2020-12-01] MEDS ORDERED: VANCOMYCIN HCL 2,000 MG in D5W 500 ML IV ONE (16:15)
[2020-12-01 16:29] LABS: BASO % 0.4 % (0.0-1.0); EOS # 0.3 10^3/uL (0.0-0.5); EOS % 3.1 % (0.0-3.0); HEMATOCRIT 21.4 % (42.0-52.0); LYMPH # 1.4 10^3/uL (1.5-5.0); LYMPH % 14.3 % (24.0-44.0); MEAN CORPUSCULAR HEMOGLOBIN 31.2 pg (27.0-33.0); MEAN CORPUSCULAR HGB CONC 32.2 g/dl (32.0-36.5); MEAN CORPUSCULAR VOLUME 96.8 fl (80.0-96.0); MONO # 1.1 10^3/uL (0.0-0.8); MONO % 10.7 % (2.0-8.0); NEUTROPHILS # 7.2 10^3/uL (1.5-8.5); NEUTROPHILS % 70.8 % (36.0-66.0); PLATELET COUNT, AUTOMATED 335 10^3/uL (150-450); RED BLOOD COUNT 2.21 10^6/uL (4.30-6.10); WHITE BLOOD COUNT 10.1 10^3/uL (4.0-10.0)
[2020-12-01 16:33] LABS: HEMOGLOBIN 6.9 g/dl (13.5-17.5)
--- NOTE | 2020-12-01 16:38 | REP ---
INDICATION: swelling pain wound 10/29/2013 COMPARISON: None. TECHNIQUE: AP, lateral, bilateral oblique views right foot. FINDINGS: Marked soft tissue swelling and suspected skin ulcerations. The osseous structures demonstrate marked irregularity including heterotopic ossification and Charcot joints through the midfoot and ankle which are progressed since prior examination. Old amputation at the 5th toe noted. IMPRESSION: Soft tissue swelling/ulcerations. Advanced underlying changes to the midfoot. Osteomyelitis cannot definitively be excluded. <Electronically signed by Arya Cuba > 12/01/20 [id number]
[2020-12-01 16:49] LABS: ERYTHROCYTE SEDIMENTATION RATE 126 mm/hr (0-20)
[2020-12-01] MEDS ORDERED: VANCOMYCIN HCL 1,000 MG, VIAL MATE ADAPTER 1 EACH in NS 250 ML IV ONE ×6 (17:00)
[2020-12-01 17:07] LABS: ALBUMIN 2.5 GM/DL (3.2-5.2); ALT/SGPT 25 U/L (12-78); BILIRUBIN,DIRECT < 0.1 MG/DL (0.0-0.2); BILIRUBIN,TOTAL 0.6 MG/DL (0.2-1.0); BLOOD UREA NITROGEN 76 MG/DL (7-18); C REACTIVE PROTEIN QUANTITATIV 6.41 MG/DL (0.00-0.30); CALCIUM LEVEL 8.8 MG/DL (8.5-10.1); CARBON DIOXIDE LEVEL 19 MEQ/L (21-32); CHLORIDE LEVEL 111 MEQ/L (98-107); CREATININE FOR GFR 5.75 MG/DL (0.70-1.30); GLUCOSE, FASTING 32 MG/DL (70-100); POTASSIUM SERUM 5.8 MEQ/L (3.5-5.1); SODIUM LEVEL 140 MEQ/L (136-145); TOTAL PROTEIN 6.6 GM/DL (6.4-8.2)
[2020-12-01] MEDS ORDERED: DEXTROSE 50% 50 ML SYRINGE As Ordered ONE (17:15)
[2020-12-01] MEDS ORDERED: DEXTROSE 50% 50 ML SYRINGE IV STA ×2 (17:16→17:17)
--- NOTE | 2020-12-01 18:25 | ECGEPIP ---
[facility] - ED Test Date: 2020-12-01 Pat Name: SONYA ELI Department: Room: - Gender: Male Manager Leadership Development: OUMAR : 1965 Requested By: GREG Goddard PA-C Order Number: [id number] Reading MD: Elin Markham Measurements Intervals [place] Rate: 69 P: 15 WV: 172 QRS: 20 QRSD: 92 T: 18 QT: 418 QTc: 447 Interpretive Statements Normal sinus rhythm NSTTW abnormalities No prior Electronically Signed on 12-01-2020 18:25:40 EDT by Elin Markham
--- NOTE | 2020-12-01 18:48 | REP ---
INDICATION: swelling pain COMPARISON: None. TECHNIQUE: Rosa scale and color Doppler evaluation using linear high frequency transducer. FINDINGS: Ultrasound examination of the right lower extremity deep venous structures from the common femoral vein through the popliteal vein demonstrates normal compressibility flow and wave patterns in response to respiration and augmentation. There is no evidence for deep venous thrombosis. Evaluation of the veins below the popliteal vein into the calf and ankle could not be evaluated due to edema. Contralateral CFV is patent and normal. IMPRESSION: No evidence for deep venous thrombosis. <Electronically signed by Arya Cuba > 12/01/20 [id number]
[2020-12-01] MEDS ORDERED: FISH1000 PO (18:50)
[2020-12-01] MEDS ORDERED: TAMS1CAP17 PO (18:50)
[2020-12-01] MEDS ORDERED: TOUJ1.2I SC ×2 (18:50)
[2020-12-01] MEDS ORDERED: NOVOINJ3 SC (18:50)
[2020-12-01] MEDS ORDERED: DRIS50003 PO (18:50)
[2020-12-01] MEDS ORDERED: FAMO40TA3 PO (18:50)
[2020-12-01] MEDS ORDERED: TRUL0.5I SC (18:50)
[2020-12-01] MEDS ORDERED: MOM 30ML SUSPENSION UDC PO PRN (20:00)
[2020-12-01] MEDS ORDERED: DEXTROSE 50% 50 ML SYRINGE IV PRN (20:00)
[2020-12-01] MEDS ORDERED: GLUCAGON INJ 1MG VIAL SC PRN (20:00)
[2020-12-01] MEDS ORDERED: ACETAMINOPHEN TAB 650MG DOSE (2X325MG) PO PRN (20:00)
[2020-12-01] MEDS ORDERED: MAALOX 30 ML SUSP *UDC PO PRN (20:00)
[2020-12-01] MEDS ORDERED: GLUCOSE 4GM CHEW TABLET PO PRN (20:00)
[2020-12-01] MEDS ORDERED: oxyCODONE 5MG TAB PO PRN (20:10)
[2020-12-01] MEDS ORDERED: D5W/0.45% SODIUM CHLORIDE 1,000 ML IV SCH (20:40)
[2020-12-01] MEDS ORDERED: VANCOMYCIN HCL 1,000 MG, VIAL MATE ADAPTER 1 EACH in NS 250 ML IV SCH (20:40)
--- NOTE | 2020-12-01 20:49 | HPEPDOC ---
[facility] Medical History & Physical Date of Admission December 01, 2020 Date of Service: December 01, 2020 History and Physical CHIEF COMPLAINT: R foot wound HISTORY OF PRESENT ILLNESS: 55 yo M with a hx of DM2 with neuropathy, CHERELLE on CPAP, CKD stage IV, HTN, gout, recurrent diabetic foot infections with amputation, who follows with Dr. Robles, presented to ER with complaint of worsening swelling, redness and drainage from a chronic wound on lateral aspect of the R foot. He was seen in Dr. Robles's office on 11/26/20 where he underwent bedside debridement and suturing per patient. He is not currently taking any antibiotics. He reports good PO intake in the past several days and endorses good urine output. He reports subjective fever and chills this morning and denies chest pain, shortness of breath, palpitations, nausea, vomiting, diarrhea as well hematemesis and melena/dark stools. On arrival to the ER, patient was afebrile. HR 69. RR 18. BP 159/83. Pulse ox 97%. Lab work revealed WBC 10.1. Hgb 6.9. Hct 21.4. Left shift with neutrophil predominance 70.8%. Na 140. K 5.8. Cr 5.75. Fasting glucose 32. LA 0.5. ESR 126. 6.41. XR imaging of the R foot showing soft tissue swelling at midfoot, unable to r/o osteomyelitis. Patient was given 1L NS bolus. Empiric vancomycin and 2 amps of D50. Patient will be admitted to hospitalist service for management of hypoglycemia, acute anemia and suspected osteomyelitis with cellulitis of the R foot. PAST MEDICAL HISTORY: DM2 with neuropathy HTN CKD stage IV Gout PAST SURGICAL HISTORY: Hernia repair SOCIAL HISTORY: denies etoh denies smoking denies illicit drug use FAMILY HISTORY: reviewed with patient, provided no relevant hx ALLERGIES: Please see below. REVIEW OF SYSTEMS: 10 point ROS was conducted, relevant findings are noted in the HPI. HOME MEDICATIONS: Please see below. PHYSICAL EXAMINATION: VITAL SIGNS: please see below GENERAL APPEARANCE: comfortable, non toxic HEENT: PERRLA, EOMI, moist mucous membranes. CARDIOVASCULAR: RRR, normal S1, S2. unable to appreciate JVD LUNGS: CTAB, no rales, no crackles, no wheeze. ABDOMEN: soft, non tender, obese. MUSCULOSKELETAL: R foot base of 5th toe s/p amputations, shows a 2 cm in diameter area of ulceration with no visible base, with serosanguinous drainage, surrouding erythema. Area demarcated with surgical marker. EXTREMITIES: pulses intact 2+. 2+ pitting edema NEUROLOGICAL: no focal neuro deficits, CN2-12, clear speech. PSYCHIATRIC: alert and oriented x 3, calm and pleasant. LABORATORY DATA: See below. IMAGING: R foot XR (12/01/20): FINDINGS: Marked soft tissue swelling and suspected skin ulcerations. The osseous structures demonstrate marked irregularity including heterotopic ossification and Charcot joints through the midfoot and ankle which are progressed since prior examination. Old amputation at the 5th toe noted. IMPRESSION: Soft tissue swelling/ulcerations. Advanced underlying changes to the midfoot. Osteomyelitis cannot definitively be excluded. MICROBIOLOGY: Please see below. ASSESSMENT: 55 yo M with a hx of DM2 with neuropathy, CKD stage IV, HTN, gout, recurrent diabetic foot infections with amputation, who follows with Dr. Robles, presented to ER with complaint of worsening swelling, redness and drainage from a chronic wound on lateral aspect of the R foot. Patient will be admitted to hospitalist service for management of hypoglycemia, acute renal failure on CKD, hyperkalemia, acute anemia, and suspected osteomyelitis of the R foot. . PLAN: Acute anemia - noted hgb 6.9 on arrival - no hx of hematemesis, melena/dark stools - check fecal occult blood - 2 units of pRBC tranfusing in ER - monitor CBC - check iron panel, B12, folate Acute renal failure on CKD stage IV - follows with Dr. Mcconnell. Based on available labs in EMR, baseline Cr ~3.0 - nephrology consulted, d/w Dr. Mcconnell - ordered renal US, UA - patient was taking spironolactone prior to arrival, will hold - s/p 1L NS bolus in ER - received ~250 cc of D5 for hypoglycemia - stopped IVF due to SOB and hypoxia. - suspect rising creatinine 2/2 fluid overload, will provide diuresis with lasix IV Hypoglycemia - patient arrived with BG 32 - known diabetic, I suspect poor understanding of illness and dosing regimen of insulin - reports sliding scale at home, but med rec shows Glargine 60 units qam and 40 units qhs - received 2 amps of D 50, BG improved to 79 - will start on D5 1/2 NS at 125 cc/hr - hypoglycemia precautions ordered. DM2 - admitted with hypoglycemia, please see above - hold all scheduled insulin (home regimen: Glargine 60 units qam and 40 units qhs, ISS) - ISS, FSBS AC and HS - D5 1/2 NS at 125 cc/hr - consistent carbohydrate diet R foot cellulitis with suspect osteomyelitis - XR cannot r/o osteomyelitis - elevated WBC, ESR and CRP - will avoid contrast imaging due to ARF - given empiric vancomycin in ER - will continue vancomycin and ceftriaxone - MRSA screen ordered - blood cultures are pending - monitor inflammatory markers Fluid overload CHF vs CKD - while patient denies hx of congestive heart failure, he is a poor historian, and given list of medications which include a BB, spironolactone and isosorbide in combination with hydralazine, I suspect a degree of CHF - he appears fluid overloaded at this time as evidence by 2+ pitting edema, shortness of breath, mild hypoxia requireing 2L NC and elevated BP - will check BNP - stop IVF - administer 20 mg IV lasix with blood transfusion, c/w 20 mg lasix IV q8h - echocardiogram from 10/01/20 reviewed, showing normal EG, normal LV systolic and diastolic function - will be judicious with use of fluids for renal failure Shortness of breath w/ hypoxia - started after 50% of 2nd unit of pRBC - check transfusion rxn panel - I suspect this is rather due to fluid overload 2/2 congestive heart failure vs acute on chronic CKD - give 20 mg lasix IV Hyperkalemia - K 5.8 - hold spironolactone - started IV lasix HTN - resume home meds: hydralazine 25 mg PO TID, amlodipine 5 mg PO daily and carvedilol 6.25 mg BID, isosorbide dinitrate CHERELLE - patient to bring home CPAP - O2 orders. DVT ppx: heparin 5000 units q8h SC, TEDs. Dispo: pending clinical improvement Vital Signs Vital Signs Date Time Temp Pulse Resp B/P (MAP) Pulse Ox O2 Delivery O2 Flow Rate FiO2 12/01/20 19:56 98.8 80 18 168/78 99 Room Air Laboratory Data Labs 24H Laboratory Tests 2 12/01/20 15:56: Immature Granulocyte % (Auto) 0.7, Neutrophils (%) (Auto) 70.8H, Lymphocytes (%) (Auto) 14.3L, Monocytes (%) (Auto) 10.7H, Eosinophils (%) (Auto) 3.1H, Basophils (%) (Auto) 0.4, Neutrophils # (Auto) 7.2, Lymphocytes # (Auto) 1.4L, Monocytes # (Auto) 1.1H, Eosinophils # (Auto) 0.3, Basophils # (Auto) 0.0, Nucleated Red Blood Cells % (auto) 0.0, Erythrocyte Sedimentation Rate 126H, Anion Gap 10, G lomerular Filtration Rate 11.0L, Lactic Acid Level 0.5, Calcium Level 8.8, Total Bilirubin 0.6, Direct Bilirubin < 0.1, Aspartate Amino Transf (AST/SGOT) 33, Alanine Aminotransferase (ALT/SGPT) 25, Alkaline Phosphatase 65, C-Reactive Protein, Quantitative 6.41H, Total Protein 6.6, Albumin 2.5L, Albumin/Globulin Ratio 0.6 12/01/20 17:12: Bedside Glucose (Misc Panel) 35*L 12/01/20 17:46: Coronavirus (COVID-19)(PCR) NEGATIVE 12/01/20 17:53: Bedside Glucose (Misc Panel) 74 12/01/20 18:47: Bedside Glucose (Misc Panel) 73 CBC/BMP Laboratory Tests 12/01/20 15:56 Microbiology Microbiology 12/01/20 Blood Culture, Received Pending 12/01/20 Gram Stain, Received Pending 12/01/20 Wound Culture, Received Pending 12/01/20 Blood Culture, Received Pending Home Medications Scheduled Allopurinol (Allopurinol) 100 Mg Tablet, 100 MG PO BID Amlodipine Besylate (Amlodipine Besylate) 5 Mg Tablet, 5 MG PO DAILY Carvedilol (Carvedilol) 6.25 Mg Tablet, 6.25 MG PO BID Dulaglutide (Trulicity) 1.5 Mg/0.5 Ml Pen.injctr, 1.5 MG SC QWEEK TAKES ON FRIDAYS OR SATURDAYS Ergocalciferol (Vitamin D2) (Drisdol) 1,250 Mcg Capsule, 1,250 MCG PO QMONTH Famotidine (Famotidine) 40 Mg Tablet, 40 MG PO QHS Hydralazine HCl (Hydralazine HCl) 25 Mg Tablet, 25 MG PO TID Insulin Aspart (Novolog Flexpen) 100 Unit/1 Ml Insuln.pen, 1 DOSE SC AC PER SLIDING SCALE Insulin Glargine,Hum.rec.anlog (Toujeo Solostar) 300 Unit/1 Ml Insuln.pen, 60 UNIT SC QAM Insulin Glargine,Hum.rec.anlog (Toujeo Solostar) 300 Unit/1 Ml Insuln.pen, 40 UNIT SC QHS Isosorbide Dinitrate (Isosorbide Dinitrate) 10 Mg Tablet, 10 MG PO BID Powell-3 Fatty Acids/Fish Oil (Fish Oil 1,000 mg Capsule) 1 Each Capsule, 1,000 MG PO BID Potassium Chloride (Potassium Chloride) 20 Meq Tab.er.prt, 20 MEQ PO DAILY Rosuvastatin Calcium (Rosuvastatin Calcium) 10 Mg Tablet, 10 MG PO DAILY Spironolactone (Spironolactone) 25 Mg Tablet, 25 MG PO BID Tamsulosin Hcl (Tamsulosin HCl) 0.4 Mg Capsule, 0.4 MG PO QHS Scheduled PRN Oxycodone HCl (Oxycodone HCl) 10 Mg Tablet, 10 MG PO QID PRN for PAIN Allergies Coded Allergies: No Known Allergies (Unverified , 09/30/18) ERIN JULIAN MD December 01, 2020 20:49
[2020-12-01 21:30] LABS: FERRITIN 315 NG/ML (26-388); IRON (FE) 40 UG/DL (65-175); PERCENT SATURATION 20.7 % (19.7-50.0); TOTAL IRON BINDING CAPACITY 193 UG/DL (250-450)
[2020-12-01] MEDS: **hydrALAZINE HCL** 25 MG TAB PO SCH (22:36)
[2020-12-01] MEDS: HumaLOG INSULIN (NovoLOG) PER UNIT SC SCH (22:56)
[2020-12-02] MEDS: cefTRIAXone SOD 1 GM in D5W MINI-BAG PLUS 50 ML IV SCH ×2 (00:09→21:57)
[2020-12-02] MEDS: TAMSULOSIN 0.4 MG CAP PO SCH ×2 (00:10→20:24)
[2020-12-02] MEDS: ISOSORBIDE DIN (ISORDIL) 10 MG TAB PO SCH ×3 (00:10→20:24)
[2020-12-02] MEDS: DOCUSATE SODIUM 100MG CAPSULE PO SCH ×3 (00:11→20:24)
[2020-12-02] MEDS: PANTOPRAZOLE 40MG VIAL (C9113 PER 1) IV SCH ×3 (00:11→20:23)
[2020-12-02] MEDS: CARVedilol 6.25 MG TAB PO SCH ×3 (00:11→20:25)
[2020-12-02] MEDS: allopurinoL 100 MG TAB PO SCH ×3 (00:11→20:24)
[2020-12-02 00:40] VITALS: BP 180/60
[2020-12-02] MEDS ORDERED: FUROSEMIDE 20MG/2ML VIAL (J1940) IV ONE ×2 (01:10→03:30)
[2020-12-02] MEDS ORDERED: **hydrALAZINE HCL** 25 MG TAB PO ONE (01:20)
[2020-12-02 02:02] LABS: ALBUMIN 2.6 GM/DL (3.2-5.2); ALT/SGPT 21 U/L (12-78); BILIRUBIN,TOTAL 0.5 MG/DL (0.2-1.0); BLOOD UREA NITROGEN 74 MG/DL (7-18); CALCIUM LEVEL 8.5 MG/DL (8.5-10.1); CARBON DIOXIDE LEVEL 21 MEQ/L (21-32); CHLORIDE LEVEL 111 MEQ/L (98-107); CREATININE FOR GFR 5.73 MG/DL (0.70-1.30); GLOMERULAR FILTRATION RATE 11.1 (>56); GLUCOSE, FASTING 133 MG/DL (70-100); NT-PRO BNP 2000 PG/ML (<125); POTASSIUM SERUM 5.3 MEQ/L (3.5-5.1); SODIUM LEVEL 140 MEQ/L (136-145); TOTAL PROTEIN 7.3 GM/DL (6.4-8.2); TROPONIN I < 0.02 NG/ML (< 0.10)
[2020-12-02 02:05] VITALS: BP 154/68
[2020-12-02 02:16] LABS: BASO # 0.1 10^3/uL (0.0-0.2); BASO % 0.5 % (0.0-1.0); EOS # 0.3 10^3/uL (0.0-0.5); EOS % 2.7 % (0.0-3.0); HEMATOCRIT 26.2 % (42.0-52.0); HEMOGLOBIN 8.5 g/dl (13.5-17.5); LYMPH # 1.1 10^3/uL (1.5-5.0); LYMPH % 9.6 % (24.0-44.0); MEAN CORPUSCULAR HEMOGLOBIN 30.9 pg (27.0-33.0); MEAN CORPUSCULAR HGB CONC 32.4 g/dl (32.0-36.5); MEAN CORPUSCULAR VOLUME 95.3 fl (80.0-96.0); MONO % 8.6 % (2.0-8.0); NEUTROPHILS # 8.6 10^3/uL (1.5-8.5); PLATELET COUNT, AUTOMATED 314 10^3/uL (150-450); RED BLOOD COUNT 2.75 10^6/uL (4.30-6.10)
--- NOTE | 2020-12-02 02:19 | REPVR ---
PROCEDURE INFORMATION: Exam: XR Chest Exam date and time: 12/02/2020 1:59 AM Age: 55 years old Clinical indication: Dyspnea TECHNIQUE: Imaging protocol: XR of the chest. Views: 1 view. COMPARISON: CR Chest, 2 view PA, Lat 02/25/2019 9:37 PM FINDINGS: Lungs: Lungs are diffusely hypoexpanded. No evidence of pulmonary edema. Patchy opacities at the lung bases. Pleural spaces: Possible small pleural effusions. No pneumothorax. Heart/Mediastinum: Heart and mediastinal contours are normal, given the degree of inflation. Bones/joints: Osseous structures show no concerning abnormality. Soft tissues: No asymmetry of the extrathoracic soft tissues. IMPRESSION: Hypoexpanded lungs, with patchy basilar lung opacities which could represent multifocal pneumonia with small dependent pleural effusions Electronically signed by: Kboe Silverman On 12/02/2020 02:18:56 AM
[2020-12-02] MEDS: HEPARIN SOD (PORCINE) 5000UNITS/ML 1ML VIAL/SYRINGE SC SCH ×2 (05:57→12:59)
[2020-12-02 06:00] VITALS: BP 144/71
--- NOTE | 2020-12-02 06:46 | REPVR ---
PROCEDURE INFORMATION: Exam: US Retroperitoneal Limited, Kidneys Exam date and time: 12/02/2020 6:18 AM Age: 55 years old Clinical indication: Condition or disease; Kidney or ureter condition; Chronic kidney disease or failure; Additional info: Acute on chronic renal insufficiency TECHNIQUE: Imaging protocol: Real-time ultrasound of the retroperitoneum with image documentation. Examination was focused on the kidneys. COMPARISON: Abdomen, limited US 11/17/2018 2:53 PM FINDINGS: Right kidney: The right kidney measures 14.0 x 6.9 x 5.8 cm. There is increased right renal parenchymal echogenicity with cortical thinning and increased sinus fat. There is no right renal mass, stone, cyst or hydronephrosis. Left kidney: The left kidney measures 14.3 x 7.7 x 6.3 cm. There is increased left renal parenchymal echogenicity with cortical thinning and increased sinus fat. There is no left renal mass, stone, cyst or hydronephrosis. Bladder: The urinary bladder is under distended limiting its evaluation with no gross sonographic evidence of intra bladder mass, stone or debris. IMPRESSION: 1. No focal renal mass, stone, cyst or hydronephrosis seen. 2. Bilateral increased renal cortical echogenicity suggestive of chronic medical renal disease. Electronically signed by: Jaya Shepherd On 12/02/2020 06:45:34 AM
[2020-12-02 07:19] LABS: BASO % 0.4 % (0.0-1.0); EOS # 0.3 10^3/uL (0.0-0.5); HEMATOCRIT 25.5 % (42.0-52.0); HEMOGLOBIN 8.3 g/dl (13.5-17.5); LYMPH # 1.2 10^3/uL (1.5-5.0); LYMPH % 12.3 % (24.0-44.0); MEAN CORPUSCULAR HEMOGLOBIN 30.9 pg (27.0-33.0); MEAN CORPUSCULAR HGB CONC 32.5 g/dl (32.0-36.5); MEAN CORPUSCULAR VOLUME 94.8 fl (80.0-96.0); MONO # 0.9 10^3/uL (0.0-0.8); MONO % 8.9 % (2.0-8.0); NEUTROPHILS # 7.3 10^3/uL (1.5-8.5); NEUTROPHILS % 74.8 % (36.0-66.0); PLATELET COUNT, AUTOMATED 315 10^3/uL (150-450); RED BLOOD COUNT 2.69 10^6/uL (4.30-6.10); WHITE BLOOD COUNT 9.8 10^3/uL (4.0-10.0)
[2020-12-02] MEDS: HumaLOG INSULIN (NovoLOG) PER UNIT SC SCH ×4 (07:30→21:00)
[2020-12-02 07:38] LABS: ALBUMIN 2.5 GM/DL (3.2-5.2); BILIRUBIN,TOTAL 0.4 MG/DL (0.2-1.0); C REACTIVE PROTEIN QUANTITATIV 6.09 MG/DL (0.00-0.30); CALCIUM LEVEL 8.4 MG/DL (8.5-10.1); CREATININE FOR GFR 5.77 MG/DL (0.70-1.30); MAGNESIUM LEVEL 2.2 MG/DL (1.8-2.4); POTASSIUM SERUM 5.1 MEQ/L (3.5-5.1); TOTAL PROTEIN 6.8 GM/DL (6.4-8.2); VANCOMYCIN RANDOM 17.4 UG/ML
[2020-12-02] MEDS ORDERED: VANCOMYCIN HCL 500 MG in D5W MINI-BAG PLUS 100 ML IV ONE (08:00)
[2020-12-02] MEDS ORDERED: FUROSEMIDE 20MG/2ML VIAL (J1940) IV SCH ×2 (08:00→09:00)
[2020-12-02] MEDS: amLODIPine 5 MG TAB PO SCH (09:16)
[2020-12-02] MEDS: **hydrALAZINE HCL** 25 MG TAB PO SCH ×3 (09:16→20:25)
[2020-12-02] MEDS: ROSUVASTATIN 10 MG TAB (CRESTOR) PO SCH (09:17)
[2020-12-02] MEDS: LACTOBACILLUS ACIDOPHILUS CAP (BACID) PO SCH ×2 (09:26→17:06)
[2020-12-02 10:28] LABS: FOLATE > 24.0 NG/ML (>5.4); VITAMIN B12 LEVEL 469 PG/ML (247-911)
[2020-12-02] MEDS: DOXYCYCLINE HYCLATE 100MG TABLET PO SCH ×2 (10:45→20:24)
--- NOTE | 2020-12-02 13:07 | CR ---
CONSULTATION DATE: 12/02/2020 REASON FOR CONSULTATION: Acute renal failure superimposed on chronic kidney disease in this gentleman with multiple medical problems. HISTORY OF PRESENT ILLNESS: Mr. Alonzo is a 55-year-old gentleman with known history of morbid obesity, type 2 diabetes complicated with diabetic nephropathy, peripheral neuropathy, history of obstructive sleep apnea, on CPAP, history of hypertension, gout, and chronic peripheral edema. He developed infection on the right foot and has been followed by wound clinic as an outpatient. He was admitted yesterday due to worsening pain in his right foot and was found to have cellulitis and possible deeper infection on the right 5th metatarsal area. He was also noticed to have worsening kidney function with creatinine up to 5.75 and a potassium level 5.8. A nephrology consultation was requested, and patient is seen this morning. I did discuss the plan of care with the admitting physician at the time of admission. MEDICAL HISTORY: Significant for: 1. Longstanding diabetes. 2. Hypertension. 3. Stage IV of chronic kidney disease. 4. History of gout. 5. Obstructive sleep apnea. 6. History of peripheral neuropathy. 7. History of anemia. 8. History of congestive heart failure. SURGICAL HISTORY: Significant for: 1. Hernia repair. 2. Recent history of right foot wound. PERSONAL AND SOCIAL HISTORY: Patient denies any alcohol, drug, or tobacco use. FAMILY HISTORY: Significant for diabetes, cardiac problems, and chronic kidney disease. HOME MEDICATIONS: - allopurinol 100 mg twice a day - amlodipine 5 mg daily - carvedilol 6.25 twice a day - Trulicity 1.5 mg once a week - vitamin D 1.25 mcg once a month - famotidine 40 mg daily - hydralazine 25 mg three times a day - NovoLog insulin per sliding scale - Toujeo insulin 60 units in morning and 40 units in evening - isosorbide 10 mg twice a day - potassium chloride 20 mEq daily - rosuvastatin 10 mg daily - spironolactone 25 mg twice a day - tamsulosin 0.4 mg at bedtime He has also been taking oxycodone for pain. ALLERGIES: No known drug allergies. REVIEW OF SYSTEMS: Patient denies any high-grade fever or chills. Ears, nose, and throat are unremarkable. Cardiovascular system is significant for chronic peripheral edema and shortness of breath. He denies any chest pain. Respiratory system is significant for obstructive sleep apnea. Denies any cough or hemoptysis. Gastrointestinal (GI) system is negative for vomiting or diarrhea. Genitourinary () system is negative for dysuria or hematuria. Musculoskeletal system is significant for right foot wound and leg edema. Neurologic system is significant for severe peripheral neuropathy but denies any history of stroke or seizures. Hematological system significant for severe anemia, for which he required transfusion. Skin is significant for cellulitis and wound on his right foot. Psychosocial system is negative for depression or anxiety. PHYSICAL EXAMINATION: Morbidly obese gentleman lying in the bed with head elevated and using oxygen via nasal cannula. Temperature 97.3 degrees Fahrenheit, heart rate 88 per minute, respiratory rate 20 per minute, blood pressure 144/70 mmHg, and oxygen saturation 96% on 4 liters oxygen. He has facial edema present. Neck veins are markedly distended, and thyroid is difficult to be assessed. There is no oral thrush or ulcers. Heart sounds are regular, and there is no pericardial friction rub. Lungs with diminished breath sounds at bases. Abdomen obese, soft, and nontender, and bowel sounds are normal. Extremities without any cyanosis or clubbing. He has 2+ edema on his right leg up to knee. Left leg has 1+ edema. On the right foot he has cellulitis and a wound on the right 5th metatarsal area. There is foul smell and purulent discharge. Neurologically, he is awake, alert, and without a focal neurological deficit. LABORATORY DATA: On admission, his sodium was 140, potassium 5.8, CO2 of 19, BUN 76, and creatinine 5.75. Glucose was 32 and calcium 8.8. Later, his potassium came down to 5.3, and this morning it is 5.1. Sodium is 141, BUN 70, and creatinine 5.77. Hemoglobin is 8.3 today after 2 units of packed red blood cells (RBC). On admission his WBC count was 10.1 and hemoglobin 6.9 with hematocrit 21.4. Urinalysis showed 3+ protein and no blood. Only 3 WBC and no RBC. Renal ultrasound shows bilateral thinning of renal cortex and no hydronephrosis. Right foot x-ray was reported as soft tissue swelling and ulceration with advanced underlying changes to the midfoot. Osteomyelitis could not be ruled out. PROBLEMS: 1. Acute kidney injury superimposed on chronic kidney disease. Patient had a serum creatinine of 4.1 on November 01, when he was seen in the office. Kidney function has worsened, most likely related to right foot infection. He is certainly not dehydrated and has received some intravenous (IV) fluid and blood transfusions through the night. Kidney function did not improve. I have discussed with the patient about potential need for dialysis, and he is agreeable to it. There is no emergent need for dialysis today; however, he is likely to require dialysis within next couple of days. 2. Hyperkalemia related to potassium supplement and potassium-sparing diuretic in the setting of acute renal failure and advanced chronic kidney disease. Hyperkalemia has already improved with treatment and does not need any further intervention. 3. Congestive heart failure. Volume status is decompensated, and patient is receiving only 20 mg of Lasix every 8 hours. I am going ot change it to 40 mg every 8 hours and will try to diurese him more aggressively. His BNP level was 2000. 4. Anemia. Patient has chronic anemia, and most likely it worsened due to right foot infection. He has already received 2 units of packed RBC. At this point we will transfuse him and monitor closely. He did have iron deficiency also, but we will hold off on intravenous iron in view of ongoing infection. 5. Right foot cellulitis and wound. Patient has been given vancomycin, and he is also on ceftriaxone. Wound culture is still pending. I will recommend to avoid any nephrotoxic medications. Thank you for involving me in the care of Mr. Alonzo. I will follow him along with you.
[2020-12-02 14:00] VITALS: BP 155/69
[2020-12-02 14:26] LABS: HEPATITIS B CORE ANTIBODY IGM NEGATIVE (NEGATIVE); HEPATITIS B SURFACE ANTIBODY NEGATIVE (POSITIVE); HEPATITIS B SURFACE ANTIGEN NEGATIVE (NEGATIVE)
--- NOTE | 2020-12-02 14:43 | ECHO ---
ECHOCARDIOGRAM DATE OF PROCEDURE: 12/02/2020 Age: 55 Gender: Male Height: 70 inches Weight: 332 pounds Body Surface Area: 2.59 m2 [facility]. REFERRING PHYSICIAN: Enzo Foote. INDICATION: Edema. MEASUREMENTS: 2D Measurements: RV 3.5 cm LV 5.4 cm Septum 1.4 cm Posterior wall 1.3 cm Aortic Root 3.5 cm LA 5.2 cm LVEF 65% Doppler Measurements: AV 1.62 m/s LVOT 1.22 m/s LVOT diameter 2.4 cm MV-E 114, A 80, EA ratio 1.4 Early mitral deceleration time 190 msec E prime medial 10, A prime medial 9, E prime lateral 8.6 Average E/E prime ratio 12.3/PCWP 17 mmHg PV 1.3 m/s Pulmonary artery acceleration time 114 msec PASP 31 mmHg IVC 1.8 cm COMMENTS: Normal sinus rhythm without intraventricular conduction disturbance. M-mode and 2-dimensional echocardiography was performed with pulse, continuous wave, color flow, and tissue Doppler studies. Mild concentric left ventricular hypertrophy with normal wall motion. Moderately dilated left atrium with grade 2 LV diastolic dysfunction but currently normal estimated mean left atrial pressure. Normal right heart chamber sizes and wall motion with Doppler evidence of mild pulmonary hypertension. Normal IVC size and collapse against an elevated central venous pressure at this time. Normal aortic dimensions. Marginal aortic valvular sclerosis without functional abnormality. Normal appearing mitral valvular apparatus without functional abnormality. Normal appearing tricuspid valve with very mild insufficiency (physiologic). No apparent intracardiac mass or pericardial effusion. MTDD
[2020-12-02] MEDS: FUROSEMIDE 40MG/4ML VIAL (J1940) IV SCH ×2 (17:07→23:44)
--- NOTE | 2020-12-02 17:18 | IPNPDOC ---
Date Seen The patient was seen on 12/02/20. Progress Note SUBJECTIVE: Increased O2 demand, started CAP coverage. Fluid overloaded, nephrology to diurese more. S/p 2 units PRBC with improvement of H/H. Advanced wound care consult placed, known to Dr. Robles as o/p. Denies increased SOB, chest pain, n/v/d, cough. OBJECTIVE: PHYSICAL EXAMINATION: VITAL SIGNS: please see below GENERAL APPEARANCE: comfortable, non toxic HEENT: PERRLA, EOMI, moist mucous membranes, + JVD CARDIOVASCULAR: RRR, normal S1, S2., +2 pitting edema in b/l lower ext LUNGS: CTAB, no rales, no crackles, no wheeze. ABDOMEN: soft, non tender, obese. MUSCULOSKELETAL: R foot base of 5th toe s/p amputations, no cyanosis or clubbing INTEGUMENTARY: 2 cm in diameter area of ulceration with no visible base, with little serosanguinous drainage, surrouding erythema, warm to touch. Area demarcated with surgical marker. EXTREMITIES: pulses intact 2+, symmetrical. NEUROLOGICAL: no focal neuro deficits, CN2-12, clear speech, AAO x3 PSYCHIATRIC: mood and affect appropriate. LABORATORY DATA: See below. MICROBIOLOGY: Bcx x 2 sets pending Wound cx: pending IMAGING: Renal US: 1. No focal renal mass, stone, cyst or hydronephrosis seen. 2. Bilateral increased renal cortical echogenicity suggestive of chronic medical renal disease R foot XR (12/01/20): Soft tissue swelling/ulcerations. Advanced underlying changes to the midfoot. Osteomyelitis cannot definitively be excluded. CXR: Hypoexpanded lungs, with patchy basilar lung opacities which could represent mul tifocal pneumonia with small dependent pleural effusions Echocardiogram 12/01/2020: EF 65% Normal sinus rhythm without intraventricular conduction disturbance. M-mode and 2-dimensional echocardiography was performed with pulse, continuous wave, color flow, and tissue Doppler studies. Mild concentric left ventricular hypertrophy with normal wall motion. Moderately dilated left atrium with grade 2 LV diastolic dysfunction but currently normal estimated mean left atrial pressure. Normal right heart chamber sizes and wall motion with Doppler evidence of mild pulmonary hypertension. Normal IVC size and collapse against an elevated central venous pressure at this time. Normal aortic dimensions. Marginal aortic valvular sclerosis without functional abnormality. Normal appearing mitral valvular apparatus without functional abnormality. Normal appearing tricuspid valve with very mild insufficiency (physiologic). No apparent intracardiac mass or pericardial effusion. ASSESSMENT: 55 yo M with a hx of DM2 with neuropathy, CKD stage IV, HTN, gout, recurrent diabetic foot infections with amputation, who follows with Dr. Robles, presented to ER with complaint of worsening swelling, redness and drainage from a chronic wound on lateral aspect of the R foot. Patient will be admitted to hospitalist service for management of hypoglycemia, acute renal failure on CKD, hyperkalemia, acute anemia, and suspected osteomyelitis of the R foot. PLAN: Acute on chronic anemia likely multifactorial 2/2 to iron deficiency, anemia of chronic disease -Hgb 6.9 on admission, s/p 2 units PRBC with improvement to 8.3/25.5 -No hx of hematemesis, melena/dark stools or other s/s of bleeding -F/u occult blood, daily CBC -Hold heparin sc for now, rstart if occult neg -Consider iron infusion this hospital stay MCKENNA on CKD stage IV possibly 2/2 to o/p medications vs. CHF, or both -Cr 5.7, baseline Cr 3 -Renal US above -Recently stopped several diuretics as directed by nephrology o/p -Received fluids in ER but these were stopped to due to increased SOB -Nephrology consulted, f/u recommendations -Daily labs Acute hypoxic respiratory failure likely multifactorial to CHF and multifocal community acquired PNA -Currently 4.5 L NC saturating well, increased from admission -Supplemental O2, please see tx plan for individual issues below Community acquired PNA, multifocal -WBC wnl, afebrile, inflammatory markers elevated -CXR: above ; could these findings be 2/2 to fluid vs. infection? -Procal pending, if low d/c abx -Started on doxy PO while on ceftriaxone, probiotic Acute on chronic HFpEF with exacerbation -S/s of fluid overload: +2 pitting edema, + JVD, elevated BNP -Echo 12/01/20: see above, preserved EF -Started on 40 mg IV Q8H. -C/w lasix, CCB, BB, imdur -Monitor I&O's closely, 2 gm sodium diet, daily wts R foot cellulitis, r/o osteomyelitis -WBC wnl, afebrile, elevated inflammatory markers -XR cannot r/o osteomyelitis -MRI ordered -Bcx pending -C/w vancomycin and ceftriaxone -Dr. Robles (follows wound o/p) consulted. DM2 -Resolved hypoglycemia with D5 fluids, etc. -BS 190 this AM -c/w CC diet, ISS, FS AC/HS, hypoglycemic protocol Hyperkalemia likely 2/2 to MCKENNA, spironolactone - K wnl today - hold spironolactone -Daily labs HTN - c/w lasix, hydralazine 25 mg PO TID, amlodipine 5 mg PO daily and carvedilol 6.25 mg BID, isosorbide dinitrate CHERELLE - patient to bring home CPAP - O2 orders. DVT ppx -SCD, TEDs- stop heparin if occult positive DISPOSITION: Admitted as acute inpatient. Nephrology and advanced wound care consult placed, f/u recommendations. Plan is home when medically improved. VS, I&O, 24H, Fishbone Vital Signs/I&O Vital Signs Date Time Temp Pulse Resp B/P (MAP) Pulse Ox O2 Delivery O2 Flow Rate FiO2 12/02/20 14:00 98.0 80 20 155/69 (97) 95 Nasal Cannula 3.0 I&O- Last 24 Hours up to 6 AM 12/02/20 06:00 Intake Total 2190 ml Output Total 775 ml Balance 1415 ml Laboratory Data 24H LABS Laboratory Tests 2 12/01/20 17:12: Bedside Glucose (Misc Panel) 35*L 12/01/20 17:46: Coronavirus (COVID-19)(PCR) NEGATIVE 12/01/20 17:53: Bedside Glucose (Misc Panel) 74 12/01/20 18:47: Bedside Glucose (Misc Panel) 73 12/01/20 22:39: Bedside Glucose (Misc Panel) 92 12/01/20 23:09: Bedside Glucose (Misc Panel) 93 12/01/20 23:16: Urine Color YELLOW, Urine Appearance CLEAR, Urine pH 5.0, Urine Specific [place] 1.011, Urine Protein 3+H, Urine Glucose (UA) NEGATIVE, Urine Ketones NEGATIVE, Urine Blood NEGATIVE, Urine Nitrite NEGATIVE, Urine Bilirubin NEGATIVE, Urine Urobilinogen 0.2, Urine Leukocyte Esterase NEGATIVE, Urine WBC (Auto) 3, Urine RBC (Auto) 0, Urine Hyaline Casts (Auto) 0, Urine Bacteria (Auto) NEGATIVE, Urine Squamous Epithelial Cells 0, Urine Mucus (Auto) SMALL, Urine Sperm (Auto) 12/02/20 01:16: Anion Gap 8, Glomerular Filtration Rate 11.1L, Lactic Acid Level 0.6, Calcium Level 8.5, Total Bilirubin 0.5, Aspartate Amino Transf (AST/SGOT) 12, Alanine Aminotransferase (ALT/SGPT) 21, Alkaline Phosphatase 70, Troponin I < 0.02, VS-Ypd-D-Type Natriuretic Peptide 2000H, Total Protein 7.3, Albumin 2.6L, Albumin/Globulin Ratio 0.6 12/02/20 01:58: Methicillin-Resist S.aureus DNA PCR NOT DETECTED 12/02/20 02:03: Immature Granulocyte % (Auto) 0.6, Neutrophils (%) (Auto) 78.0H, Lymphocytes (%) (Auto) 9.6L, Monocytes (%) (Auto) 8.6H, Eosinophils (%) (Auto) 2.7, Basophils (%) (Auto) 0.5, Neutrophils # (Auto) 8.6H, Lymphocytes # (Auto) 1.1L, Monocytes # (Auto) 1.0H, Eosinophils # (Auto) 0.3, Basophils # (Auto) 0.1, Nucleated Red Blood Cells % (auto) 0.0 12/02/20 07:00: Immature Granulocyte % (Auto) 0.6, Neutrophils (%) (Auto) 74.8H, Lymphocytes (%) (Auto) 12.3L, Monocytes (%) (Auto) 8.9H, Eosinophils (%) (Auto) 3.0, Basophils (%) (Auto) 0.4, Neutrophils # (Auto) 7.3, Lymphocytes # (Auto) 1.2L, Monocytes # (Auto) 0.9H, Eosinophils # (Auto) 0.3, Basophils # (Auto) 0.0, Nucleated Red Blood Cells % (auto) 0.0, Anion Gap 11, Glomerular Filtration Rate 11.0L, Calcium Level 8.4L, Magnesium Level 2.2, Total Bilirubin 0.4, Aspartate Amino Transf (AST/SGOT) 14, Alanine Aminotransferase (ALT/SGPT) 21, Alkaline Phosphatase 74, C-Reactive Protein, Quantitative 6.09H, Total Protein 6.8, Albumin 2.5L, Albumin/Globulin Ratio 0.6, Random Vancomycin Level 17.4 12/02/20 10:12: Procalcitonin 0.12, Hepatitis B Surface Antigen NEGATIVE, Hepatitis B Surface Antibody NEGATIVE, Hepatitis B Core IgM Antibody NEGATIVE, Hepatitis C Antibody Index 0.0 12/02/20 12:03: Bedside Glucose (Misc Panel) 192H 12/02/20 13:09: Lab Scanned Report Transfusion Record CBC/BMP Laboratory Tests 12/02/20 01:16 12/02/20 02:03 12/02/20 07:00 Microbiology Microbiology 12/01/20 Blood Culture, Received Pending 12/01/20 Gram Stain - Final, Resulted 12/01/20 Wound Culture, Resulted Pending 12/01/20 Blood Culture - Preliminary, Resulted No growth after 24 hours . All specim... Milvia Lo MD Dec 02, 2020 17:18
[2020-12-02] MEDS ORDERED: VANCOMYCIN INTERMITTENT/PULSE DOSING BY CLINICAL PHARMACIST PER DOSING PROTOCOL XX SCH (21:10)
[2020-12-02 22:00] VITALS: BP 158/79
--- NOTE | 2020-12-02 22:07 | REPVR ---
PROCEDURE INFORMATION: Exam: MR Right Lower Extremity Other Than Joint Without Contrast; Foot Exam date and time: 12/02/2020 9:47 PM Age: 55 years old Clinical indication: Pain; Swelling, leg or foot; Right; Additional info: R/O osteomyelitis TECHNIQUE: Imaging protocol: MR of the Right lower extremity without contrast. Exam focused on the foot. COMPARISON: MRI-Foot W/O FOL WITH RIGHT 07/23/2016 9:29 AM FINDINGS: The examination is somewhat limited due to the lack of intravenous contrast. There is diffuse soft tissue swelling and subcutaneous edema with overlying skin thickening, compatible with cellulitis/myositis. There is a deep soft tissue ulceration along the lateral plantar surface of the 5th metatarsal shaft with a moderate to large amount of subjacent, loculated fluid. There is no soft tissue mass. No acute tendon or ligament injury is identified. The patient is status post amputation at the level of the 5th metatarsal proximal metaphysis. There is extensive deformity, disorganization and fragmentation of the midfoot with associated periarticular subcortical cystic change, compatible with chronic Charcot neuropathy. Similar, less pronounced findings are noted in the hindfoot. There is mild bone marrow edema in the 5th metatarsal remnant, extending into an osteophyte connecting the 4th and 5th metatarsal bases. This is evident on the fluid sensitive and T1 weighted sequences. No acute erosive or destructive changes are seen. There is no lytic or blastic lesion. There is a small amount of intra-articular fluid and synovitis diffusely. IMPRESSION: 1. Limited noncontrast examination. 2. Findings concerning for acute osteomyelitis of the 5th metatarsal remnant, extending into an osteophyte connecting the 4th and 5th metatarsal bases, as described above. 3. Additional findings, as above. Electronically signed by: Lang Le On 12/02/2020 22:07:47 PM
--- NOTE | 2020-12-03 00:33 | IPNPDOC ---
Text Note Date of Service The patient was seen on 12/03/20. NOTE I reviewed patients MRI Right Foot without IV contrast which says there is soft tissue and subcutaneous diffuse tissue swelling with thickening which correlates to cellulitis. Imaging also shows ulceration of patients tissue lateral aspect of 5th metatarsal with contains large amount of fluid collection (amputation to digit). -The Radiologist official readings says: ". Findings concerning for acute osteomyelitis of the 5th metatarsal remnant, extending into an osteophyte connecting the 4th and 5th metatarsal bases, small amount of intra-articular fluid and synovitis diffusely. He also has extensive deformity, disorganization and fragmentation of the midfoot with associated periarticular subcortical cystic change, compatible with chronic Charcot neuropath; mild bone marrow edema in the 5th metatarsal remnant, extending into an osteophyte connecting the 4th and 5th metatarsal base. *Patient is currently receiving Ceftriaxone 1 GM q 12 hours and received Vancomycin 500 mg IV this morning. His vital signs are stable with BP 158/79, 92 o2 saturation with 3 L per N/C, temperature 98.2 and heart rate 85, RR 19. Will continue to monitor patient. VS,Fishbone, I+O VS, Fishbone, I+O Laboratory Tests 12/02/20 01:16 12/02/20 02:03 12/02/20 07:00 Vital Signs Date Time Temp Pulse Resp B/P (MAP) Pulse Ox O2 Delivery O2 Flow Rate FiO2 12/02/20 22:00 98.2 85 19 158/79 (105) 92 Nasal Cannula 3.0 I&O- Last 24 Hours up to 6 AM 12/03/20 06:00 Intake Total 1410 ml Output Total 2325 ml Balance -915 ml LELA LEE INDUST[employer] SECURITY ANALYST Dec 03, 2020 00:33
[2020-12-03 06:00] VITALS: BP 127/55
[2020-12-03 07:23] LABS: BASO # 0.1 10^3/uL (0.0-0.2); BASO % 0.6 % (0.0-1.0); EOS # 0.3 10^3/uL (0.0-0.5); EOS % 3.9 % (0.0-3.0); HEMATOCRIT 24.3 % (42.0-52.0); HEMOGLOBIN 7.9 g/dl (13.5-17.5); LYMPH # 1.4 10^3/uL (1.5-5.0); LYMPH % 17.4 % (24.0-44.0); MEAN CORPUSCULAR HEMOGLOBIN 30.9 pg (27.0-33.0); MEAN CORPUSCULAR HGB CONC 32.5 g/dl (32.0-36.5); MEAN CORPUSCULAR VOLUME 94.9 fl (80.0-96.0); MONO # 0.8 10^3/uL (0.0-0.8); MONO % 10.1 % (2.0-8.0); NEUTROPHILS # 5.4 10^3/uL (1.5-8.5); NEUTROPHILS % 67.6 % (36.0-66.0); PLATELET COUNT, AUTOMATED 280 10^3/uL (150-450); RED BLOOD COUNT 2.56 10^6/uL (4.30-6.10); WHITE BLOOD COUNT 7.9 10^3/uL (4.0-10.0)
[2020-12-03 07:25] LABS: INR 1.11; PROTHROMBIN TIME 14.5 SECONDS (12.5-14.3)
[2020-12-03] MEDS: HumaLOG INSULIN (NovoLOG) PER UNIT SC SCH ×4 (07:30→21:00)
[2020-12-03 08:04] LABS: ALBUMIN 2.4 GM/DL (3.2-5.2); BILIRUBIN,TOTAL 0.3 MG/DL (0.2-1.0); C REACTIVE PROTEIN QUANTITATIV 5.22 MG/DL (0.00-0.30); CALCIUM LEVEL 8.5 MG/DL (8.5-10.1); CREATININE FOR GFR 5.89 MG/DL (0.70-1.30); GLOMERULAR FILTRATION RATE 10.7 (>56); MAGNESIUM LEVEL 1.8 MG/DL (1.8-2.4); POTASSIUM SERUM 4.3 MEQ/L (3.5-5.1); TOTAL PROTEIN 7.1 GM/DL (6.4-8.2)
[2020-12-03 08:44] LABS: VANCOMYCIN RANDOM 17.4 UG/ML
[2020-12-03] MEDS ORDERED: VANCOMYCIN HCL 500 MG in D5W MINI-BAG PLUS 100 ML IV ONE (09:00)
--- NOTE | 2020-12-03 09:43 | CR.PDOC ---
General Date of Consultation: Dec 03, 2020 Consultation REASON FOR CONSULTATION/CHIEF COMPLAINT: Acute on chronic renal deficiency requiring access for dialysis HISTORY OF PRESENT ILLNESS: This very pleasant 55-year-old gentleman with worsening renal insufficiency requiring access for dialysis. Risks benefits and alternatives to PermCath placement were explained to the patient needs agreeable to proceed. Informed consent was obtained. ALLERGIES: Please see below. HOME MEDICATIONS: Please see below. PAST MEDICAL HISTORY: IDDMII, neuropathy, HTN, gout, JAUN on CRI PAST SURGICAL HISTORY: Hernia repair, right fifth toe amputation FAMILY HISTORY: Diabetes, heart disease SOCIAL HISTORY: Denies tobacco alcohol or illicit drug use REVIEW OF SYSTEMS: CONSTITUTIONAL: Denies fevers chills HEENT: Denies vision or hearing changes CARDIOVASCULAR: Denies chest pain RESPIRATORY: Occasional shortness of breath GENITOURINARY: Denies dysuria, occasional hesitancy MUSCULOSKELETAL: Denies claudication, reports swelling lower extremities and wound GASTROINTESTINAL: Reports reflux and heartburn SKIN: Reports wound right foot NEUROLOGICAL: Denies stroke seizures or headaches PSYCHIATRIC: Denies anxiety or depression ENDOCRINE: Positive diabetes HEMATOLOGIC/LYMPHATIC: Positive anemia ALLERGIC/IMMUNOLOGIC: Denies immune disease PHYSICAL EXAMINATION: VITAL SIGNS: Please see below. GENERAL APPEARANCE: Medically stable HEENT: Normocephalic, TMI, US exam of RIJ shows vessel patent and suitable for RIJ permcath placement RESPIRATORY: Slightly coarse breath sounds bilaterally no wheezes CARDIOVASCULAR: Regular rate and rhythm ABDOMEN: Soft obese nontender EXTREMITIES: Positive edema, positive dressing intact right foot, positive distal pulses intact NEUROLOGICAL: Alert and oriented 3 moves all extremities equally PSYCHIATRIC: Pleasant and cooperative LABORATORY DATA: Please see below. ASSESSMENT/PLAN: This very pleasant 55-year-old patient with worsening renal insufficiency requiring access for dialysis. 1. Plan for RIJ PermCath placement and then the patient will be ready for dialysis per our nephrology team. We appreciate the opportunity to participate in the care of this patient. Vital Signs/I&O Vital Signs Date Time Temp Pulse Resp B/P (MAP) Pulse Ox O2 Delivery O2 Flow Rate FiO2 12/03/20 06:00 97.9 81 19 127/55 (79) 94 Nasal Cannula 3.0 I&O- Last 24 Hours up to 6 AM 12/03/20 06:00 Intake Total 2950 ml Output Total 3675 ml Balance -725 ml Laboratory Data Labs 24H Laboratory Tests 2 12/02/20 10:12: Procalcitonin 0.12, Hepatitis B Surface Antigen NEGATIVE, Hepatitis B Surface Antibody NEGATIVE, Hepatitis B Core IgG Antibody Negative, Hepatitis B Core IgM Antibody NEGATIVE, Hepatitis C Antibody Index 0.0 12/02/20 12:03: Bedside Glucose (Misc Panel) 192H 12/02/20 13:09: Lab Scanned Report Transfusion Record 12/02/20 16:37: Bedside Glucose (Misc Panel) 140H 12/02/20 19:54: Bedside Glucose (Misc Panel) 173H 12/03/20 06:40: Immature Granulocyte % (Auto) 0.4, Neutrophils (%) (Auto) 67.6H, Lymphocytes (%) (Auto) 17.4L, Monocytes (%) (Auto) 10.1H, Eosinophils (%) (Auto) 3.9H, Basophils (%) (Auto) 0.6, Neutrophils # (Auto) 5.4, Lymphocytes # (Auto) 1.4L, Monocytes # (Auto) 0.8, Eosinophils # (Auto) 0.3, Basophils # (Auto) 0.1, Nucleated Red Blood Cells % (auto) 0.0, Prothrombin Time 14.5H, Prothromb Time International Ratio 1.11, Anion Gap 9, Glomerular Filtration Rate 10.7L, Calcium Level 8.5, Magnesium Level 1.8, Total Bilirubin 0.3, Aspartate Amino Transf (AST/SGOT) 12, Alanine Aminotransferase (ALT/SGPT) 17, Alkaline Phosphatase 69, C-Reactive Protein, Quantitative 5.22H, Total Protein 7.1, Albumin 2.4L, Albumin/Globulin Ratio 0.5, Random Vancomycin Level 17.4 12/03/20 08:01: Bedside Glucose (Misc Panel) 97 CBC/BMP Laboratory Tests 12/03/20 06:40 Microbiology Microbiology 12/01/20 Blood Culture - Preliminary, Resulted No growth after 24 hours . All specim... 12/01/20 Gram Stain - Final, Resulted 12/01/20 Wound Culture, Resulted Pending 12/01/20 Blood Culture - Preliminary, Resulted No growth after 24 hours . All specim... Allergies Coded Allergies: No Known Allergies (Unverified , 09/30/18) Home Medications Scheduled Allopurinol (Allopurinol) 100 Mg Tablet, 100 MG PO BID, (Reported) Amlodipine Besylate (Amlodipine Besylate) 5 Mg Tablet, 5 MG PO DAILY, (Reported) Carvedilol (Carvedilol) 6.25 Mg Tablet, 6.25 MG PO BID, (Reported) Dulaglutide (Trulicity) 1.5 Mg/0.5 Ml Pen.injctr, 1.5 MG SC QWEEK, (Reported) TAKES ON FRIDAYS OR SATURDAYS Ergocalciferol (Vitamin D2) (Drisdol) 1,250 Mcg Capsule, 1,250 MCG PO QMONTH, (Reported) Famotidine (Famotidine) 40 Mg Tablet, 40 MG PO QHS, (Reported) Hydralazine HCl (Hydralazine HCl) 25 Mg Tablet, 25 MG PO TID, (Reported) Insulin Aspart (Novolog Flexpen) 100 Unit/1 Ml Insuln.pen, 1 DOSE SC AC, (Reported) PER SLIDING SCALE Insulin Glargine,Hum.rec.anlog (Toujeo Solostar) 300 Unit/1 Ml Insuln.pen, 60 UNIT SC QAM, (Reported) Insulin Glargine,Hum.rec.anlog (Toujeo Solostar) 300 Unit/1 Ml Insuln.pen, 40 UNIT SC QHS, (Reported) Isosorbide Dinitrate (Isosorbide Dinitrate) 10 Mg Tablet, 10 MG PO BID, (Reported) [place]-3 Fatty Acids/Fish Oil (Fish Oil 1,000 mg Capsule) 1 Each Capsule, 1,000 MG PO BID, (Reported) Potassium Chloride (Potassium Chloride) 20 Meq Tab.er.prt, 20 MEQ PO DAILY, (Reported) Rosuvastatin Calcium (Rosuvastatin Calcium) 10 Mg Tablet, 10 MG PO DAILY, (Reported) Spironolactone (Spironolactone) 25 Mg Tablet, 25 MG PO BID, (Reported) Tamsulosin Hcl (Tamsulosin HCl) 0.4 Mg Capsule, 0.4 MG PO QHS, (Reported) Scheduled PRN Oxycodone HCl (Oxycodone HCl) 10 Mg Tablet, 10 MG PO QID PRN for PAIN, (Reported) ROMI MONTOYA MD Dec 03, 2020 09:43
[2020-12-03] MEDS ORDERED: LIDOCAINE W/EPINEPHRINE 1% 20ML VIAL As Ordered ONE (09:54)
[2020-12-03] MEDS ORDERED: fentaNYL 100 MCG/2 ML INJECTION (J3010) As Ordered ONE (09:55)
[2020-12-03] MEDS ORDERED: ceFAZolin 2 GM/D5W 50 ML IV BAG (J0690 PER 500MG) As Ordered ONE (10:01)
--- NOTE | 2020-12-03 11:08 | ROOPDOC ---
[facility] Report Of Operation Report of Operation DATE OF PROCEDURE: 12/03/20 PREPROCEDURE DIAGNOSES: End-stage renal disease POSTPROCEDURE DIAGNOSES: Same PROCEDURE: 1. Ultrasound-guided access right internal jugular vein 2. Placement of a 23 cm tunneled right IJ PermCath SURGEON: Romi Aceves MD ANESTHESIA: Local anesthesia 13 mL lidocaine. Moderate intravenous conscious sedation was not utilized for this procedure. The patient received only analgesia, 50 g IV fentanyl. He also received 2 g of Ancef IV prior to the procedure. INDICATION FOR PROCEDURE: This a very pleasant 55-year-old gentleman with acute on chronic renal insufficiency requiring access for dialysis. Risks benefits and alternatives to a right IJ PermCath placement were explained to the patient needs agreeable to proceed. Informed consent was obtained. INTERPRETATION: The right IJ PermCath is in good position, no kinks in the catheter, tip freely mobile at the right atrial SVC junction. There is no pneu mothorax. It is okay to use the PermCath for dialysis. REPORT OPERATION: The patient was brought to the angiographic suite in stable condition. His right neck and chest were prepped and draped in sterile fashion. A timeout was performed. Analgesia and antibiotics were administered without complication. Local anesthesia was administered to the skin and subcutaneous tissue over the right jugular vein, over the right neck, over the right clavicle to the right chest. A microneedle was used to access the right internal jugular vein under ultrasound guidance. A wire was passed through this access under fluoroscopic guidance. The needle was removed and a micro-sheath was placed. Through this sheath, a a wire was advanced into the central system under fluoroscopic guidance. A small incision was made at the jugular access site and 2 serial dilations were performed over the wire using the Seldinger technique, and then a peel-away sheath was placed over the wire. The inner cannula and wire were removed. We then made a small incision on the right chest just distal to the clavicle. A 23 send me a PermCath was tunneled from this site to the jugular access site until the cuff was within the subcutaneous tissue. The tips of the catheter were then advanced through the peel-away sheath into the central system in the peel-away sheath was removed. Both ports darby back and flushed easily and were heparin locked. Appropriate caps were placed. Next, the jugular incision was irrigated with saline. The deep tissues were approximated with interrupted Monocryl suture. The deep dermal layer was approximately with interrupted Monocryl suture. Dermabond was placed at the skin. 2 Prolene sutures were used to close the exit site at the right chest and to secure the catheter to the chest wall. Sterile dressings were applied. The patient was taken back to recovery in stable condition. He tolerated the procedure well. ESTIMATED BLOOD LOSS: Approximately 5 mL. COMPLICATIONS: None. Plan: Okay to use PermCath for dialysis. Okay to resume preprocedure diet and orders per the hospitalist team. We appreciate the opportunity to participate in the care of this patient. ROMI ACEVES MD Dec 03, 2020 11:08
[2020-12-03] MEDS: LACTOBACILLUS ACIDOPHILUS CAP (BACID) PO SCH ×2 (12:16→18:22)
--- NOTE | 2020-12-03 13:00 | IPN ---
PROGRESS NOTE DATE: 12/03/2020 SUBJECTIVE: Mr. Alonzo is seen this morning on his bedside. He is currently in the dialysis room. He underwent a Perm-A-Cath placement this morning in preparation for dialysis. He has been receiving intravenous Lasix since yesterday and urine output was about 3.4 liters, however only 380 ml negative fluid balance. He has been on multiple antibiotics due to infection in his right foot. He also had an MRI yesterday which did show some evidence of osteomyelitis in the remnant of his fifth metatarsal bone of his right foot. In the meantime, the patient is currently afebrile and feeling much better today. He did receive 2 units of packed RBCs since admission due to severe anemia. OBJECTIVE: VITAL SIGNS: Temperature 99.3 degrees Fahrenheit, heart rate 82 per minute and respiratory rate 20 per minute. Blood pressure 127/55 mmHg and oxygen saturation 98% on 2 liters of oxygen. HEAD AND NECK: He has mild facial edema. Neck veins are still quite prominent. He has a new catheter in the right internal jugular vein. HEART: Heart sounds were regular. LUNGS: Diminished breath sounds at bases. ABDOMEN: Obese, soft and nontender. Bowel sounds are present. EXTREMITIES: Without any cyanosis or clubbing. The right foot is in the dressing. The right leg has 2+ edema and the left leg has 1+ edema. NEUROLOGIC: He is awake, alert and oriented x3. LABORATORY DATA: Today's labs showed a WBC down to 7.9, hemoglobin is also 7.9 and hematocrit is 24.3. Sodium 139, potassium 4.3, CO2 23, BUN 74 and creatinine 5.89. Glucose 105 and calcium 8.5. Total protein 7.1 and albumin 2.4. PROBLEMS: 1. Congestive heart failure. He did diurese well with Lasix, however intake was also significant yesterday and there was only mild negative fluid balance. We are going to start dialysis and will try to remove at least 1 liter of fluid with dialysis. His IV Lasix is being stopped now. 2. Acute renal failure superimposed on chronic kidney disease. Patient has a known history of advanced chronic kidney disease at baseline with a GFR of about 20 ml in early mid __. He has right foot osteomyelitis and cellulitis which mostly likely caused superimposed acute renal failure. At this point, his kidney function has not improved so far and we are going to dialyze him today due to congestive heart failure and worsening BUN and creatinine. I have explained to the patient that he has only minimal chance for improvement of kidney function and is likely to require long-term dialysis. 3. Anemia. His anemia is slightly better since admission after he was transfused 2 units of packed RBCs. We will remove some fluid today and recheck his CBC tomorrow. Depending upon his labs tomorrow we will consider to transfuse him further if needed. He does have mild iron deficiency and we will also give him intravenous iron during dialysis once his infection is well under control. 4. Congestive heart failure, volume status is still decompensated and 1 liter of fluid will be removed with dialysis today. Diuretics are being stopped. 5. Right foot cellulitis and osteomyelitis. Patient remains on intravenous antibiotics including Vancomycin and Ceftriaxone. He is also on oral Doxycycline 100 mg b.i.d.
--- NOTE | 2020-12-03 13:03 | IPNPDOC ---
Date Seen The patient was seen on 12/03/20. Progress Note SUBJECTIVE: 2 L saturating well, will continue to wean down. Permacath placed today for HD with goal 1.5 L taken off. H/H slightly lower today, occult blood still pending. D/w Dr. Robles, consulting Dr. Schulte to look at foot as MRI concerning for osteomyelitis. Denies increased SOB, chest pain, n/v/d, cough. OBJECTIVE: PHYSICAL EXAMINATION: VITAL SIGNS: please see below GENERAL APPEARANCE: comfortable, non toxic HEENT: PERRLA, EOMI, moist mucous membranes, + JVD CARDIOVASCULAR: RRR, normal S1, S2., +2 pitting edema in b/l lower ext LUNGS: CTAB, no rales, no crackles, no wheeze. ABDOMEN: soft, non tender, obese. MUSCULOSKELETAL: R foot base of 5th toe s/p amputations, no cyanosis or clubbing INTEGUMENTARY: 2 cm in diameter area of ulceration with no visible base, with little serosanguinous drainage, surrouding erythema, decreased warmth to touch. Area demarcated with surgical marker. EXTREMITIES: pulses intact 2+, symmetrical. NEUROLOGICAL: no focal neuro deficits, CN2-12, clear speech, AAO x3 , decreased sensory to dull and sharp in b/l lower ext- chronic PSYCHIATRIC: mood and affect appropriate. LABORATORY DATA: See below. MICROBIOLOGY: Bcx x 2 sets NG to date Wound cx: pending IMAGING: MRI right foot: 1. Limited noncontrast examination. 2. Findings concerning for acute osteomyelitis of the 5th metatarsal remnant, extending into an osteophyte connecting the 4th and 5th metatarsal bases, as described above. Renal US: 1. No focal renal mass, stone, cyst or hydronephrosis seen. 2. Bilateral increased renal cortical echogenicity suggestive of chronic medical renal disease R foot XR (12/01/20): Soft tissue swelling/ulcerations. Advanced underlying changes to the midfoot. Osteomyelitis cannot definitively be excluded. CXR: Hypoexpanded lungs, with patchy basilar lung opacities which could represent multifocal pneumonia with small dependent pleural effusions Echocardiogram 12/01/2020: EF 65% Normal sinus rhythm without intraventricular conduction disturbance. M-mode and 2-dimensional echocardiography was performed with pulse, continuous wave, color flow, and tissue Doppler studies. Mild concentric left ventricular hypertrophy with normal wall motion. Moderately dilated left atrium with grade 2 LV diastolic dysfunction but c urrently normal estimated mean left atrial pressure. Normal right heart chamber sizes and wall motion with Doppler evidence of mild pulmonary hypertension. Normal IVC size and collapse against an elevated central venous pressure at this time. Normal aortic dimensions. Marginal aortic valvular sclerosis without functional abnormality. Normal appearing mitral valvular apparatus without functional abnormality. Normal appearing tricuspid valve with very mild insufficiency (physiologic). No apparent intracardiac mass or pericardial effusion. ASSESSMENT: 55 yo M with a hx of DM2 with neuropathy, CKD stage IV, HTN, gout, recurrent diabetic foot infections with amputation, who follows with Dr. Robles, presented to ER with complaint of worsening swelling, redness and drainage from a chronic wound on lateral aspect of the R foot. Patient will be admitted to hospitalist service for management of hypoglycemia, acute renal failure on CKD, hyperkalemia, acute anemia, and osteomyelitis of the R foot. PLAN: R foot cellulitis with likely osteomyelitis -WBC wnl, afebrile, elevated inflammatory markers which are improving -Chronic right foot wound for 10 years, followed by Dr. Robles -MRI above -Bcx NG to date, wound cx pending -C/w vancomycin and ceftriaxone -Case d/w Dr. Robles (follows wound o/p) today. -Consulted Dr. Schulte to give suggested course of treatment. Acute on chronic anemia likely multifactorial 2/2 to iron deficiency, anemia of chronic disease -Hgb 6.9 on admission, s/p 2 units PRBC with improvement but did not correct appropriately -Today H/H 7.9/24, decreasing again -No hx of hematemesis, melena/dark stools or other s/s of bleeding -F/u occult blood, daily CBC -Hold heparin sc for now, restart if occult neg -Consider iron infusion this hospital stay MCKENNA on CKD stage IV possibly 2/2 to o/p medications vs. CHF, or both -Cr 5.8, baseline Cr 3 -Renal US above -Permacath placed, HD today with goal 1.5 L -Nephrology consulted, f/u recommendations -Daily labs Acute hypoxic respiratory failure likely 2/2 to pulmonary edema -Currently 4.5 L NC saturating well, increased from admission -Supplemental O2, please see tx plan for individual issues below Pulmonary edema,with PNA less likely -Procalcitonin low -WBC wnl, afebrile, inflammatory markers elevated -CXR: above ; could these findings be 2/2 to fluid vs. infection -d/c doxy PO Acute on chronic HFpEF with exacerbation -S/s of fluid overload: +2 pitting edema, + JVD, elevated BNP -Echo 12/01/20: see above, preserved EF -Started on 40 mg IV Q8H but stopped today -HD to take off fluid -C/w CCB, BB, imdur -Monitor I&O's closely, 2 gm sodium diet, daily wts DM2 -BS better controlled -c/w CC diet, ISS, FS AC/HS, hypoglycemic protocol HTN -c/w lasix, hydralazine 25 mg PO TID, amlodipine 5 mg PO daily and carvedilol 6.25 mg BID, isosorbide dinitrate CHERELLE -CPAP nightly DVT ppx -SCD, TEDs -Start heparin if occult neg Resolved issues: Hyperkalemia likely 2/2 to MCKENNA, spironolactone DISPOSITION: Admitted as acute inpatient. Nephrology and advanced wound care consult placed, f/u recommendations. Plan is home when medically improved. VS, I&O, 24H, Fishbone Vital Signs/I&O Vital Signs Date Time Temp Pulse Resp B/P (MAP) Pulse Ox O2 Delivery O2 Flow Rate FiO2 12/03/20 11:00 86 20 98 Nasal Cannula 2.0 12/03/20 10:12 99.3 12/03/20 06:00 127/55 (79) I&O- Last 24 Hours up to 6 AM 12/03/20 05:59 Intake Total 2900 ml Output Total 3675 ml Balance -775 ml Laboratory Data 24H LABS Laboratory Tests 2 12/02/20 13:09: Lab Scanned Report Transfusion Record 12/02/20 16:37: Bedside Glucose (Misc Panel) 140H 12/02/20 19:54: Bedside Glucose (Misc Panel) 173H 12/03/20 06:40: Immature Granulocyte % (Auto) 0.4, Neutrophils (%) (Auto) 67.6H, Lymphocytes (%) (Auto) 17.4L, Monocytes (%) (Auto) 10.1H, Eosinophils (%) (Auto) 3.9H, Basophils (%) (Auto) 0.6, Neutrophils # (Auto) 5.4, Lymphocytes # (Auto) 1.4L, Monocytes # (Auto) 0.8, Eosinophils # (Auto) 0.3, Basophils # (Auto) 0.1, Nucleated Red Blood Cells % (auto) 0.0, Prothrombin Time 14.5H, Prothromb Time International Ratio 1.11, Anion Gap 9, Glomerular Filtration Rate 10.7L, Calcium Level 8.5, Magnesium Level 1.8, Total Bilirubin 0.3, Aspartate Amino Transf (AST/SGOT) 12, Alanine Aminotransferase (ALT/SGPT) 17, Alkaline Phosphatase 69, C-Reactive Protein, Quantitative 5.22H, Total Protein 7.1, Albumin 2.4L, Albumin/Globulin Ratio 0.5, Random Vancomycin Level 17.4 12/03/20 08:01: Bedside Glucose (Misc Panel) 97 CBC/BMP Laboratory Tests 12/03/20 06:40 Microbiology Microbiology 12/01/20 Blood Culture - Preliminary, Resulted No growth after 24 hours . All specim... 12/01/20 Gram Stain - Final, Resulted 12/01/20 Wound Culture, Resulted Pending 12/01/20 Blood Culture - Preliminary, Resulted No growth after 24 hours . All specim... Milvia Lo MD Dec 03, 2020 13:03
[2020-12-03 14:30] VITALS: BP 178/77
[2020-12-03] MEDS: **hydrALAZINE HCL** 25 MG TAB PO SCH ×3 (14:34→21:38)
[2020-12-03] MEDS: CARVedilol 6.25 MG TAB PO SCH ×2 (15:19→21:39)
[2020-12-03] MEDS: ISOSORBIDE DIN (ISORDIL) 10 MG TAB PO SCH ×2 (15:19→21:40)
[2020-12-03] MEDS: DOCUSATE SODIUM 100MG CAPSULE PO SCH ×2 (15:19→21:37)
[2020-12-03] MEDS: DOXYCYCLINE HYCLATE 100MG TABLET PO SCH ×2 (15:20→21:37)
[2020-12-03] MEDS: allopurinoL 100 MG TAB PO SCH ×2 (15:20→21:39)
[2020-12-03] MEDS: PANTOPRAZOLE 40MG VIAL (C9113 PER 1) IV SCH ×2 (15:20→21:37)
--- NOTE | 2020-12-03 17:05 | CR ---
CONSULTATION DATE: 12/03/2020 REASON FOR CONSULTATION: Right foot ulcer. Mr. Alonzo is a 55-year-old diabetic male with history of chronic ulcers to his right foot. He has history of amputation at this site. He has been recently following at the wound care center. He was noted to have worsening redness to his foot. He was admitted for right foot infection. MEDICAL HISTORY: 1. Diabetes with neuropathy. 2. Hypertension. 3. Chronic kidney disease, stage IV. 4. Gout. SURGICAL HISTORY: 1. Hernia repair. 2. Toe amputation. 3. Metatarsal amputations. SOCIAL HISTORY: Denies smoking, alcohol. FAMILY HISTORY: Noncontributory. ALLERGIES: No known drug allergies. REVIEW OF SYSTEMS: Negative for nausea, vomiting, fever, chills. Vital signs are reviewed. HE has remained afebrile. Labs are reviewed. White blood cell count is 7.9, hemoglobin was 7.9, today ESR on admission 126. CRP on admission was 6.09. Trended down to 5.22. Wound cultures are pending. IMAGING STUDIES: Reviewed, x-rays and MRIs. There are signs of Charcot arthropathy to the metatarsal cuneiform joints. Previous amputation of the 5th toe and metatarsal noted. In the area of the wound there is some hypertrophic bone, either from the remaining 5th metatarsal or from the 4th metatarsal. Bones are all fused in this area, and it is unclear anatomically which. LOWER EXTREMITY EXAMINATION: There is erythema and edema to the right foot with an ulceration to the right lateral foot with necrotic tissue. ASSESSMENT: Diabetic male with cellulitis, likely osteomyelitis, right foot. PLAN: Will bring patient to operating room (OR) for removal of infected and prominent bone. Continue empiric antibiotics. Will take additional OR cultures.
[2020-12-03] MEDS: amLODIPine 5 MG TAB PO SCH (18:22)
[2020-12-03] MEDS: ROSUVASTATIN 10 MG TAB (CRESTOR) PO SCH (18:22)
--- NOTE | 2020-12-03 18:37 | CR ---
CONSULTATION DATE: 12/03/2020 Advanced wound care consult via telemedicine. CONSULTATION REQUESTED BY: Dr. Lo. REASON FOR CONSULTATION: Treatment suggestions for right diabetic foot ulcer. Patient well known to our wound care clinic. A 55-year-old neuropathic diabetic male who has had previous surgery involving his right foot including toe amputations .He has also been fitted for offloading, specialized footwear. The patient developed his recent problem after visiting his son in [place] requiring significant activity in airports and ambulation to and from. After his return from [place], recently at our clinic his right foot showed an area of swelling and induration, which required incision and drainage. This was done on two separate occasions. A moderate amount of old clotted blood was evacuated. More recently, the patient developed erythema involving the same area of drainage of his right foot. The cause of this he presented to the emergency room for evaluation. Unrelated at this time he was found to be in renal failure and has required dialysis. Additionally, there also is an area of concern involving the lateral aspect of his right foot, which has been his recent recurrent problem. He has been seen by Dr. Schulte of podiatry, who is scheduling him for operating room (OR) debridement, which is indicated. I have personally spoken and discussed the case with . Additionally, he will need an arterial ultrasound to verify his vascular status involving the leg. In the meantime, local wound care will involve Vashe wound cleanser and a Hydrofera Blue foam dressing. The patient is to be nonweightbearing at this time. Elevation of the foot of the bed to decrease swelling is indicated. He is being covered by intravenous (IV) antibiotic therapy, and the extent of the underlying infection is yet to be determined. Telemedicine offers an evaluation of a wound without the ability of physical examination. Its purpose is to assist in establishing a diagnosis and give suggestions in terms of treatment. It is reiterated that close followup of all wounds is required in that the status of a wound can change significantly. As I will not be making rounds on this patient, wound care orders outlined should be ordered and signed by the attending physician involved. I made an effort to contact Dr. Schulte, who is seeing the patient, to discuss the case in detail, but he has not returned the call. My major concern is delay in incision and drainage and wound debridement. It would appear that the eschar of the wound may be sealing in the loculated fluid, which has not become infected, producing erythema involving the distal aspect of his right foot. I have left a message with him indicating that evaluation bedside incision and drainage to stabilize the situation is indicated and then a followup OR debridement would be the ideal approach. QUINTEN
--- NOTE | 2020-12-03 19:21 | REP ---
INDICATION: RIGHT LEG / wound red and swollen COMPARISON: None. TECHNIQUE: Right lower extremity arterial ultrasound FINDINGS: All numeric values represent peak systolic velocities in cm per second COMMAND AND CONTROL OFFICER: 190 triphasic Profunda: 126 triphasic SFA proximal: 162 triphasic SFA Mid: 189 triphasic SFA distal: 156 triphasic Popliteal: 192 triphasic GIN proximal: 111 triphasic/monophasic Tibioperoneal trunk: 167 triphasic CUSTOMER EXPERIENCE STRATEGIST proximal: 156 triphasic CUSTOMER EXPERIENCE STRATEGIST distal: 137 monophasic GIN distal: 205 monophasic The ankle brachial index was unobtainable The technologist noted a mild amount of plaque from the common femoral artery to the ankle without evidence of a significant stenosis. IMPRESSION: As above <Electronically signed by Christos Carrillo > 12/03/20 [id number]
[2020-12-03 21:23] VITALS: BP 155/82
[2020-12-03] MEDS: TAMSULOSIN 0.4 MG CAP PO SCH (21:38)
[2020-12-03] MEDS: cefTRIAXone SOD 1 GM in D5W MINI-BAG PLUS 50 ML IV SCH (21:40)
[2020-12-04] VITALS (9 sets, daily range): BP systolic 142–177; BP diastolic 69–89
[2020-12-04 06:36] LABS: BASO % 0.4 % (0.0-1.0); EOS # 0.3 10^3/uL (0.0-0.5); EOS % 3.5 % (0.0-3.0); HEMATOCRIT 23.8 % (42.0-52.0); HEMOGLOBIN 7.7 g/dl (13.5-17.5); LYMPH # 1.3 10^3/uL (1.5-5.0); LYMPH % 16.8 % (24.0-44.0); MEAN CORPUSCULAR HEMOGLOBIN 30.2 pg (27.0-33.0); MEAN CORPUSCULAR HGB CONC 32.4 g/dl (32.0-36.5); MEAN CORPUSCULAR VOLUME 93.3 fl (80.0-96.0); MONO # 0.9 10^3/uL (0.0-0.8); MONO % 11.1 % (2.0-8.0); NEUTROPHILS # 5.2 10^3/uL (1.5-8.5); NEUTROPHILS % 67.8 % (36.0-66.0); PLATELET COUNT, AUTOMATED 281 10^3/uL (150-450); RED BLOOD COUNT 2.55 10^6/uL (4.30-6.10); WHITE BLOOD COUNT 7.7 10^3/uL (4.0-10.0)
[2020-12-04 06:58] LABS: ALBUMIN 2.3 GM/DL (3.2-5.2); BILIRUBIN,TOTAL 0.2 MG/DL (0.2-1.0); C REACTIVE PROTEIN QUANTITATIV 3.48 MG/DL (0.00-0.30); CALCIUM LEVEL 8.6 MG/DL (8.5-10.1); CREATININE FOR GFR 4.51 MG/DL (0.70-1.30); GLOMERULAR FILTRATION RATE 14.6 (>56); MAGNESIUM LEVEL 1.8 MG/DL (1.8-2.4); POTASSIUM SERUM 4.5 MEQ/L (3.5-5.1); TOTAL PROTEIN 6.5 GM/DL (6.4-8.2)
[2020-12-04] MEDS ORDERED: VANCOMYCIN HCL 500 MG in D5W MINI-BAG PLUS 100 ML IV ONE (08:00)
[2020-12-04] MEDS: HumaLOG INSULIN (NovoLOG) PER UNIT SC SCH ×4 (08:30→21:00)
[2020-12-04] MEDS: DOCUSATE SODIUM 100MG CAPSULE PO SCH ×2 (08:32→21:15)
[2020-12-04] MEDS: LACTOBACILLUS ACIDOPHILUS CAP (BACID) PO SCH ×2 (08:32→21:14)
[2020-12-04] MEDS: DOXYCYCLINE HYCLATE 100MG TABLET PO SCH ×2 (08:33→21:15)
[2020-12-04] MEDS: PANTOPRAZOLE 40MG VIAL (C9113 PER 1) IV SCH ×2 (08:33→21:15)
[2020-12-04] MEDS: ROSUVASTATIN 10 MG TAB (CRESTOR) PO SCH (08:33)
[2020-12-04] MEDS: allopurinoL 100 MG TAB PO SCH ×2 (08:34→21:15)
[2020-12-04] MEDS: ISOSORBIDE DIN (ISORDIL) 10 MG TAB PO SCH ×2 (08:35→21:14)
[2020-12-04] MEDS: **hydrALAZINE HCL** 25 MG TAB PO SCH ×3 (08:35→21:15)
[2020-12-04] MEDS: CARVedilol 6.25 MG TAB PO SCH ×2 (08:35→21:15)
[2020-12-04] MEDS: amLODIPine 5 MG TAB PO SCH (08:36)
--- NOTE | 2020-12-04 12:10 | IPN ---
PROGRESS NOTE DATE: 12/04/2020 SUBJECTIVE: Mr. Alonzo is seen this morning during hemodialysis. We decided to dialyze him again today. Yesterday, he had his first dialysis treatment which was done only for three hours and he tolerated it well. We removed only 1 liter of fluid. The patient is feeling better now and he is now not requiring supplemental oxygen. He was seen by a pit operator yesterday and he is scheduled for OR today for debridement of his right foot wound where he is suspected to have osteomyelitis of the fifth digit remnant. OBJECTIVE: VITAL SIGNS: Temperature 97.4 degrees Fahrenheit, heart rate is 72 per minute and respiratory rate 16 per minute. Blood pressure is 160/70 mmHg and oxygen saturation is 93% on room air. HEAD AND NECK: Head is atraumatic. Neck is supple. JVD is still moderately elevated. HEART: Heart sounds are regular. LUNGS: Clear to auscultation. ABDOMEN: Obese and nontender. Bowel sounds are normal. EXTREMITIES: Without any cyanosis or clubbing. Right foot is in the dressing. CHEST: He is a Perm-A-Cath in the right upper chest which is being used for dialysis and has no signs of infection. LABORATORY DATA: Today's labs showed a WBC count of 7.7, hemoglobin 7.7 and hematocrit 23.8, platelets are 281,000, sodium is 140, potassium is 4.5, CO2 24, BUN 49 and creatinine 4.51. Glucose is 139 and calcium is 8.6. C-reactive is down to 3.48. PROBLEMS: 1. Endstage renal disease. Patient has advanced renal disease at baseline and now he has developed superimposed acute renal failure. I feel that for all practical purposes he is endstage renal disease and has very minimal chance for recovery of kidney function. He was dialyzed yesterday and is being dialyzed again today. He is likely to require long-term outpatient dialysis and patient understands that. 2. Anemia, his anemia is slightly worse. He did receive 2 units of packed RBCs on admission and will give him another unit of packed RBCs today during dialysis. 3. Hypervolemia and hypoxemia, his volume status is improving and we will try to remove 2 liters of fluid today as tolerated. His diuretic has already been stopped. 4. Right foot cellulitis and osteomyelitis. Patient has been seen by Podiatry and is likely to go to the OR today for debridement. He remains on broad-spectrum antibiotics and blood cultures are negative so far. 5. Diabetes, his diabetes seems to be reasonably well-controlled. 6. Hypertension, blood pressure is still slightly high and likely to improve with correction of his volume status. We are removing 2 liters of fluid today which will help. No change in medications is being made at this time.
[2020-12-04] MEDS ORDERED: BUPIVACAINE HCL 0.5% 10ML VIAL As Ordered ONE (15:28)
[2020-12-04] MEDS ORDERED: LIDOCAINE 1% MDV 20ML VIAL As Ordered ONE (15:28)
--- NOTE | 2020-12-04 15:47 | IPNPDOC ---
Date Seen The patient was seen on 12/04/20. Progress Note SUBJECTIVE: Remains on 3 L NC, HD again today with goal 2.5 L to be taken off. Or today by Dr. Schulte for debridement, bone bx of osteomyelitis. Transfusing 1 unit PRBC. Denies increased SOB, chest pain, n/v/d, cough. OBJECTIVE: PHYSICAL EXAMINATION: VITAL SIGNS: please see below GENERAL APPEARANCE: comfortable, non toxic HEENT: PERRLA, EOMI, moist mucous membranes, + JVD CARDIOVASCULAR: RRR, normal S1, S2., +2 pitting edema in b/l lower ext LUNGS: CTAB, no rales, no crackles, no wheeze. ABDOMEN: soft, non tender, obese. MUSCULOSKELETAL: R foot base of 5th toe s/p amputations, no cyanosis or clubbing INTEGUMENTARY: 2 cm in diameter area of ulceration with no visible base, with little serosanguinous drainage, surrounding erythema, decreased warmth to touch. EXTREMITIES: pulses intact 2+, symmetrical. NEUROLOGICAL: no focal neuro deficits, CN2-12, clear speech, AAO x3 , decreased sensory to dull and sharp in b/l lower ext- chronic PSYCHIATRIC: mood and affect appropriate. LABORATORY DATA: See below. MICROBIOLOGY: Bcx x 2 sets NG to date Wound cx: pending IMAGING: MRI right foot: 1. Limited noncontrast examination. 2. Findings concerning for acute osteomyelitis of the 5th metatarsal remnant, extending into an osteophyte connecting the 4th and 5th metatarsal bases, as described above. Renal US: 1. No focal renal mass, stone, cyst or hydronephrosis seen. 2. Bilateral increased renal cortical echogenicity suggestive of chronic medical renal disease R foot XR (12/01/20): Soft tissue swelling/ulcerations. Advanced underlying changes to the midfoot. Osteomyelitis cannot definitively be excluded. CXR: Hypoexpanded lungs, with patchy basilar lung opacities which could represent multifocal pneumonia with small dependent pleural effusions Echocardiogram 12/01/2020: EF 65% Normal sinus rhythm without intraventricular conduction disturbance. M-mode and 2-dimensional echocardiography was performed with pulse, continuous wave, color flow, and tissue Doppler studies. Mild concentric left ventricular hypertrophy with normal wall motion. Moderately dilated left atrium with grade 2 LV diastolic dysfunction but currently normal estimated mean left atrial pressure. Normal right heart chamber sizes and wall motion with Doppler evidence of mild p ulmonary hypertension. Normal IVC size and collapse against an elevated central venous pressure at this time. Normal aortic dimensions. Marginal aortic valvular sclerosis without functional abnormality. Normal appearing mitral valvular apparatus without functional abnormality. Normal appearing tricuspid valve with very mild insufficiency (physiologic). No apparent intracardiac mass or pericardial effusion. ASSESSMENT: 55 yo M with a hx of DM2 with neuropathy, CKD stage IV, HTN, gout, recurrent diabetic foot infections with amputation, who follows with Dr. Robles, presented to ER with complaint of worsening swelling, redness and drainage from a chronic wound on lateral aspect of the R foot. Patient will be admitted to hospitalist service for management of hypoglycemia, acute renal failure on CKD, hyperkalemia, acute anemia, and osteomyelitis of the R foot. PLAN: R foot cellulitis with acute osteomyelitis of the 5th metatarsal remnant, extending into 4th and 5th metatarsal bases -WBC wnl, afebrile, elevated inflammatory markers which are improving -Chronic right foot wound for 10 years, followed by Dr. Robles -MRI above -Bcx NG to date, wound cx pending -C/w vancomycin and ceftriaxone for now, deescalate when appropriate -Case d/w Dr. Robles (follows wound o/p) 12/03/20 -Consulted Dr. Schulte and he is to take to OR 12/04/20 for debridement, bone bx, follow up bone bx results Acute on chronic anemia likely multifactorial 2/2 to iron deficiency, anemia of chronic disease -Hgb dropped again to 7.7, to get another unit PRBC with hemodialysis -S/p 2 units PRBC with improvement but did not correct appropriately -Occult blood neg -No hx of hematemesis, melena/dark stools or other s/s of bleeding -Daily CBC -Consider iron infusion this hospital stay MCKENNA on CKD stage IV now on HD- possibly 2/2 to o/p medications vs. CHF, or both -Cr 4.5, baseline Cr 3 -Renal US above -Permacath placed, HD took 1.5 L off on 12/03/20 and to take another 2.5 L off t maren -Nephrology consulted, f/u recommendations -Daily labs Acute hypoxic respiratory failure likely 2/2 to pulmonary edema -Currently 3 L NC saturating well, increased from admission -Supplemental O2, please see tx plan for individual issues below Pulmonary edema,with PNA less likely -Procalcitonin low -WBC wnl, afebrile, inflammatory markers elevated -CXR: above ; could these findings be 2/2 to fluid vs. infection Acute on chronic HFpEF with exacerbation -S/s of fluid overload: +2 pitting edema, + JVD, elevated BNP -Echo 12/01/20: see above, preserved EF = -HD to take off fluid -C/w CCB, BB, imdur -Monitor I&O's closely, 2 gm sodium diet, daily wts DM2 -BS better controlled -c/w CC diet, ISS, FS AC/HS, hypoglycemic protocol HTN -c/w hydralazine 25 mg PO TID, amlodipine 5 mg PO daily and carvedilol 6.25 mg BID, isosorbide dinitrate CHERELLE -CPAP nightly DVT ppx -Heparin, SCD, TEDs Resolved issues: Hyperkalemia likely 2/2 to MCKENNA, spironolactone DISPOSITION: Admitted as acute inpatient. OR today for debridement by podiatry. Nephrology and advanced wound care also consulted. Plan is home when medically improved. VS, I&O, 24H, [facility] Vital Signs/I&O Vital Signs Date Time Temp Pulse Resp B/P (MAP) Pulse Ox O2 Delivery O2 Flow Rate FiO2 12/04/20 15:05 163/78 12/04/20 14:00 98.2 72 18 96 Nasal Cannula 3.0 I&O- Last 24 Hours up to 6 AM 12/04/20 05:59 Intake Total 1485 ml Output Total 3000 ml Balance -1515 ml Laboratory Data 24H LABS Laboratory Tests 2 12/03/20 16:41: Bedside Glucose (Misc Panel) 213H 12/03/20 19:51: Bedside Glucose (Misc Panel) 171H 12/04/20 06:16: Immature Granulocyte % (Auto) 0.4, Neutrophils (%) (Auto) 67.8H, Lymphocytes (%) (Auto) 16.8L, Monocytes (%) (Auto) 11.1H, Eosinophils (%) (Auto) 3.5H, Basophils (%) (Auto) 0.4, Neutrophils # (Auto) 5.2, Lymphocytes # (Auto) 1.3L, Monocytes # (Auto) 0.9H, Eosinophils # (Auto) 0.3, Basophils # (Auto) 0.0, Nucleated Red Blood Cells % (auto) 0.0, Anion Gap 6L, Glomerular Filtration Rate 14.6L, Calcium Level 8.6, Magnesium Level 1.8, Total Bilirubin 0.2, Aspartate Amino Transf (AST/SGOT) 13, Alanine Aminotransferase (ALT/SGPT) 16, Alkaline Phosphatase 71, C-Reactive Protein, Quantitative 3.48H, Total Protein 6.5, Albumin 2.3L, Albumin/Globulin Ratio 0.5, Random Vancomycin Level 14.7 12/04/20 13:22: Bedside Glucose (Misc Panel) 121H CBC/BMP Laboratory Tests 12/04/20 06:16 Microbiology Microbiology 12/04/20 Stool Occult Blood (RICARDO) - Final, Complete 12/01/20 Blood Culture - Preliminary, Resulted No Growth after 48 hours. All Specime... 12/01/20 Gram Stain - Final, Resulted 12/01/20 Wound Culture, Resulted Pending 12/01/20 Blood Culture - Preliminary, Resulted No Growth after 48 hours. All Specime... Milvia Lo MD Dec 04, 2020 15:47
[2020-12-04] MEDS ORDERED: VANCOMYCIN HCL 1,000 MG, VIAL MATE ADAPTER 1 EACH in NS 250 ML IV SCH (16:00)
[2020-12-04] MEDS ORDERED: MIDAZOLAM INJ 2MG/2ML VIAL (J2250 PER 1MG) As Ordered ONE ×3 (16:21→17:46)
[2020-12-04] MEDS ORDERED: propofoL 200 MG/20 ML VIAL As Ordered ONE ×2 (16:21→17:09)
[2020-12-04] MEDS ORDERED: propofoL 500 MG/50 ML VIAL As Ordered ONE (16:21)
[2020-12-04] MEDS ORDERED: fentaNYL 100 MCG/2 ML INJECTION (J3010) As Ordered ONE ×2 (16:21→17:09)
[2020-12-04] MEDS ORDERED: LIDOCAINE 2% 100MG/5ML SDV (FOR ANES.) As Ordered ONE ×2 (16:21→17:09)
[2020-12-04] MEDS: **VANCO AFTER HD** MISC XX SCH (16:32)
[2020-12-04] MEDS ORDERED: hydrALAZINE 20MG/ML 1ML VIAL (J0360 PER 20MG) As Ordered ONE (17:09)
[2020-12-04] MEDS ORDERED: LABETALOL 100MG/20ML VIAL As Ordered ONE (17:27)
[2020-12-04 18:31] LABS: HEMATOCRIT 25.2 % (42.0-52.0); HEMOGLOBIN 8.5 g/dl (13.5-17.5); MEAN CORPUSCULAR HEMOGLOBIN 31.1 pg (27.0-33.0); MEAN CORPUSCULAR HGB CONC 33.7 g/dl (32.0-36.5); MEAN CORPUSCULAR VOLUME 92.3 fl (80.0-96.0); PLATELET COUNT, AUTOMATED 279 10^3/uL (150-450); RED BLOOD COUNT 2.73 10^6/uL (4.30-6.10); WHITE BLOOD COUNT 7.6 10^3/uL (4.0-10.0)
[2020-12-04] MEDS ORDERED: oxyCODONE 5MG TAB PO PRN (18:35)
[2020-12-04] MEDS ORDERED: fentaNYL 100 MCG/2 ML INJECTION (J3010) IV PRN (18:35)
[2020-12-04] MEDS ORDERED: ONDANSETRON 4MG/2ML VIAL IV PRN (18:35)
[2020-12-04] MEDS ORDERED: LR 1,000 ML IV SCH (18:35)
--- NOTE | 2020-12-04 19:27 | RO ---
OPERATIVE NOTE DATE OF OPERATION: 12/01/2020 PREOPERATIVE DIAGNOSIS: Right foot osteomyelitis and ulceration. POSTOPERATIVE DIAGNOSIS: Right foot osteomyelitis and ulceration. PROCEDURE: Right foot incision and drainage with excision of infected bone. SURGEON: Ariel Schulte DPM RN RESEARCH: None. ANESTHESIA: Monitored anesthesia care with preop injection of 12 mL of 1:1 mix of 1% Lidocaine plain and 0.5% Marcaine plain. ESTIMATED BLOOD LOSS: 600 mL. SPECIMEN: Right foot metatarsal bone. COMPLICATIONS: None. CONDITION: Stable. INDICATIONS: Sekou Alonzo is a 55-year-old diabetic male who has Charcot foot and ulceration with abscess. MRI was taken which suggests osteomyelitis and there was a penetrating ulcer to the bone. Decision was made to bring him to the operating room for incision and drainage and removal of infected bone. The patient's side and site were identified and marked in the preoperative area. Consent was reviewed and obtained. All risks, complications and alternatives to the procedure were explained to the patient in detail, and all questions were answered. DESCRIPTION OF PROCEDURE: The patient was brought to the operating room and placed on the operating table in supine position. Monitored anesthesia care was delivered by the anesthesia team. Preop injection of 12 mL of 1:1 mix of 1% Lidocaine plain and 0.5% Marcaine plain injected in the right foot. The right foot was prepped and draped in normal sterile fashion. Tourniquet was applied to the right ankle and inflated to 250 mmHg. The wound was inspected. There was necrotic tissue extruding from the right lateral foot. An incision was made excising this. Significant bleeding was noted. Tourniquet was inflated further to 300 and different attempts at exsanguination were performed. However, the tourniquet was ultimately not useful in preventing blood flow and was not used during the rest of the procedure. It was deflated. The necrotic tissue was debrided free with #15 blade and the purulent fluid was swabbed for aerobic and anaerobic cultures. The necrotic tissue penetrated to bone. The bone was irregular in appearance. Using a combination of sagittal saw and osteotomes, the bone was removed with some difficulty as it was fused to all the surrounding soft tissue as well as the adjacent bone. Bleeding was encountered. There was an artery that was transected during bone removal and was not able to be addressed until the bone was removed as it was deep to this bone. This resulted in some increased blood loss. After bone removal, the vessel was able to be identified and tied off with Vicryl suture. Pressure was held until no further bleeding was noted. Site was irrigated with normal saline. Partial closure was performed with 2-0 nylon and remaining wound was packed with saline gauze, and a dry gauze dressing was applied over the top of this. The patient was brought to PACU with vital signs stable and his neurovascular status intact. An hemoglobin and hematocrit was drawn in the operating room and he will be transfused pending these results with packed red blood cells if necessary.
[2020-12-04] MEDS: HEPARIN SOD (PORCINE) 5000UNITS/ML 1ML VIAL/SYRINGE SQ SCH (21:00)
[2020-12-04] MEDS: TAMSULOSIN 0.4 MG CAP PO SCH (21:10)
[2020-12-04] MEDS: cefTRIAXone SOD 1 GM in D5W MINI-BAG PLUS 50 ML IV SCH (21:15)
[2020-12-05] VITALS (14 sets, daily range): BP systolic 123–179; BP diastolic 53–91
[2020-12-05 06:31] LABS: BASO # 0.1 10^3/uL (0.0-0.2); BASO % 0.6 % (0.0-1.0); EOS # 0.2 10^3/uL (0.0-0.5); EOS % 2.5 % (0.0-3.0); HEMATOCRIT 21.1 % (42.0-52.0); HEMOGLOBIN 7.3 g/dl (13.5-17.5); LYMPH # 1.2 10^3/uL (1.5-5.0); LYMPH % 14.2 % (24.0-44.0); MEAN CORPUSCULAR HEMOGLOBIN 32.2 pg (27.0-33.0); MEAN CORPUSCULAR HGB CONC 34.6 g/dl (32.0-36.5); MONO # 0.9 10^3/uL (0.0-0.8); MONO % 10.6 % (2.0-8.0); NEUTROPHILS # 5.8 10^3/uL (1.5-8.5); NEUTROPHILS % 71.7 % (36.0-66.0); PLATELET COUNT, AUTOMATED 241 10^3/uL (150-450); RED BLOOD COUNT 2.27 10^6/uL (4.30-6.10); WHITE BLOOD COUNT 8.1 10^3/uL (4.0-10.0)
[2020-12-05 06:59] LABS: ALBUMIN 2.3 GM/DL (3.2-5.2); BILIRUBIN,TOTAL 0.3 MG/DL (0.2-1.0); C REACTIVE PROTEIN QUANTITATIV 2.38 MG/DL (0.00-0.30); CALCIUM LEVEL 8.4 MG/DL (8.5-10.1); GLOMERULAR FILTRATION RATE 16.7 (>56); MAGNESIUM LEVEL 1.7 MG/DL (1.8-2.4); POTASSIUM SERUM 4.4 MEQ/L (3.5-5.1); TOTAL PROTEIN 5.8 GM/DL (6.4-8.2); VANCOMYCIN RANDOM 17.1 UG/ML
[2020-12-05] MEDS: LACTOBACILLUS ACIDOPHILUS CAP (BACID) PO SCH ×2 (07:54→17:23)
[2020-12-05] MEDS: HumaLOG INSULIN (NovoLOG) PER UNIT SC SCH ×4 (07:54→20:27)
[2020-12-05] MEDS: amLODIPine 5 MG TAB PO SCH (07:55)
[2020-12-05] MEDS: ISOSORBIDE DIN (ISORDIL) 10 MG TAB PO SCH ×2 (07:56→20:24)
[2020-12-05] MEDS: DOXYCYCLINE HYCLATE 100MG TABLET PO SCH (07:56)
[2020-12-05] MEDS: DOCUSATE SODIUM 100MG CAPSULE PO SCH ×2 (07:56→20:23)
[2020-12-05] MEDS: CARVedilol 6.25 MG TAB PO SCH ×2 (07:57→20:25)
[2020-12-05] MEDS: **hydrALAZINE HCL** 25 MG TAB PO SCH ×3 (07:57→20:24)
[2020-12-05] MEDS: allopurinoL 100 MG TAB PO SCH ×2 (07:57→20:24)
[2020-12-05] MEDS: ROSUVASTATIN 10 MG TAB (CRESTOR) PO SCH (07:58)
[2020-12-05] MEDS: PANTOPRAZOLE 40MG VIAL (C9113 PER 1) IV SCH ×2 (07:58→20:23)
[2020-12-05] MEDS: HEPARIN SOD (PORCINE) 5000UNITS/ML 1ML VIAL/SYRINGE SQ SCH ×2 (07:59→20:28)
--- NOTE | 2020-12-05 11:28 | IPN ---
PROGRESS NOTE DATE: 12/05/2020 SUBJECTIVE: Mr. Alonzo is seen this morning on his bedside. He is sitting at the edge of the bed and reports feeling well. He underwent debridement of his right foot wound yesterday. He remains on intravenous antibiotics and currently afebrile. His wound culture did show Staphylococcus aureus, Enterococcus, and Corynebacterium. The patient was dialyzed yesterday and he tolerated dialysis treatment well. He was also given one unit of packed RBCs during dialysis. OBJECTIVE: VITAL SIGNS: Temperature 98.4 degrees Fahrenheit, heart rate 78 per minute, and respiratory rate 20 per minute. Blood pressure 152/60 mmHg and oxygen saturation 94% on room air. HEAD: Atraumatic. NECK: Supple and JVD difficult to be assessed. He has a hemodialysis catheter in the right internal jugular vein. HEART: Sounds regular. LUNGS: Diminished breath sounds due to morbid obesity. ABDOMEN: Obese and nontender. Bowel sounds are normal. EXTREMITIES: Without any cyanosis or clubbing. Right foot is in a dressing. There is no edema on the left leg. NEUROLOGIC: He is awake, alert, and oriented x3. LABORATORY DATA: Today's labs show a WBC count of 8.1, hemoglobin 7.3, and hematocrit 21.1, platelets 241,000. Sodium 139, potassium 4.4, CO2 of 25, BUN 37, and creatinine 4.0. Calcium is 8.4 and magnesium 1.7. C-reactive protein down to 2.38. PROBLEMS: 1. Acute renal failure superimposed on chronic kidney disease. I feel that the patient has probably at least end-stage renal disease. He was dialyzed yesterday and likely to require dialysis again tomorrow. His electrolytes are stable and at this point, there is no emergent need for dialysis today. 2. Anemia. The patient so far has been transfused with three units of packed RBCs since admission and anemia keeps getting worse again even after transfusion. I suspect that he probably has gastrointestinal (GI) blood loss. His stool should be checked for occult blood. Initial occult blood was negative. I have discussed with the hospitalist and advised to transfuse two more units of packed RBCs today. His CBC will be checked again tomorrow. 3. Right foot cellulitis and osteomyelitis. The patient is currently afebrile and remains on vancomycin and doxycycline. He is also receiving ceftriaxone 1 gram every 24 hours. 4. Congestive heart failure/hypervolemia. His volume status seems to be well compensated with 3 liters of fluid removal so far with dialysis. 5. Hypertension. Blood pressure is reasonably well-controlled and no changes in antihypertensives are being made today.
--- NOTE | 2020-12-05 13:51 | IPNPDOC ---
Text Note Date of Service The patient was seen on 12/05/20. NOTE Subjective: No any acute events overnight. Patient denied fever, chills, chest pain, palpitations or diarrhea Objective: GENERAL APPEARANCE: NAD HEENT: no scleral icterus, plus JVD, EOMI, hemodialysis catheter in the right internal jugular vein CARDIOVASCULAR: S1S2 LUNGS: CTA ABDOMEN: Obese, soft MUSCULOSKELETAL: no cyanosis, no swelling, right foot covered with dressing INTEGUMENT: no generalized pallor NEUROLOGICAL: cranial nerve function from 2-12 intact intact, follows commands, speech not dysarthric ASSESSMENT: 55 yo M with a hx of DM2 with neuropathy, CKD stage IV, HTN, gout, recurrent diabetic foot infections with amputation, who follows with Dr. Robles, presented to ER with complaint of worsening swelling, redness and drainage from a chronic wound on lateral aspect of the R foot. Patient will be admitted to hospitalist service for management of hypoglycemia, acute renal failure on CKD, hyperkalemia, acute anemia, and osteomyelitis of the R foot. R foot cellulitis with acute osteomyelitis of the 5th metatarsal remnant, extending into 4th and 5th metatarsal bases MRI right foot: 1. Limited noncontrast examination. 2. Findings concerning for acute osteomyelitis of the 5th metatarsal remnant, extending into an osteophyte connecting the 4th and 5th metatarsal bases, as described above. C/w vancomycin and doxycycline PO to cover anaerobes. Wound Cx from 11/30/20 positive for Staphylococcus aureus and Enterococcus faecalis. DC'd ceftriaxone 12/04/20 Dr. Schulte took pt to OR 12/04/20 for debridement, bone bx Acute on chronic anemia likely multifactorial 2/2 to iron deficiency, anemia of chronic disease Hemoglobin dropped today to 7.3 Will transfuse 2 units of blood Previous stool for occult blood negative Will repeat test Appreciate/agree with surgical consult, most likely patient will need colonoscopy and EGD End-stage renal diseases/acute renal failure Patient was dialyzed yesterday Nephrology team follows him Acute diastolic CHF Volume status regulated by dialysis Cardiac diet Type 2 diabetes c/w CC diet, ISS, FS AC/HS, hypoglycemic protocol HTN c/w hydralazine 25 mg PO TID, amlodipine 5 mg PO daily and carvedilol 6.25 mg BI D, isosorbide dinitrate CHERELLE CPAP nightly VS,Fishbone, I+O VS, Fishbone, I+O Laboratory Tests 12/04/20 17:47 12/05/20 06:09 Vital Signs Date Time Temp Pulse Resp B/P (MAP) Pulse Ox O2 Delivery O2 Flow Rate FiO2 12/05/20 10:00 98.4 78 20 152/61 (91) 94 Room Air 12/05/20 06:00 3.0 I&O- Last 24 Hours up to 6 AM 12/05/20 06:00 Intake Total 2870 ml Output Total 3875 ml Balance -1005 ml TWILA WARREN DO Dec 05, 2020 13:51
[2020-12-05] MEDS: **VANCO AFTER HD** MISC XX SCH (14:07)
--- NOTE | 2020-12-05 14:18 | IPN ---
PROGRESS NOTE DATE: 12/05/2020 Patient seen and examined at bedside. Denies complaints. States he is having no pain. VITAL SIGNS: Maximum temperature 99.1. LABORATORY DATA: White blood cell count is 8.1, hemoglobin 7.3. CRP 2.38. LOWER EXTREMITY EXAMINATION: Dressing clean, dry, and intact. ASSESSMENT: A 55-year-old diabetic male with osteomyelitis, status post incision and drainage and bone excision. PLAN: Start dressing changes tomorrow. Await operating room (OR) cultures.
[2020-12-05] MEDS: AMPICILLIN SOD/SULBACTAM SOD 3 GM in D5W MINI-BAG PLUS 100 ML IV SCH (16:14)
--- NOTE | 2020-12-05 17:45 | REP ---
INDICATION: post op bone excision COMPARISON: 12/01/2020 TECHNIQUE: AP, lateral, bilateral oblique views right foot. FINDINGS: Postoperative changes are appreciated. There is partial excision and bony debridement at the base of the 4th metatarsal bone. Extensive underlying degenerative changes and heterotopic calcification along with overlying soft tissue swelling noted. IMPRESSION: Baseline postoperative examination. <Electronically signed by Arya Cuba > 12/05/20 0085
[2020-12-05] MEDS: TAMSULOSIN 0.4 MG CAP PO SCH (20:25)
[2020-12-06 06:00] VITALS: BP 151/63
[2020-12-06 06:25] LABS: BASO # 0.1 10^3/uL (0.0-0.2); BASO % 0.6 % (0.0-1.0); EOS # 0.3 10^3/uL (0.0-0.5); EOS % 3.6 % (0.0-3.0); HEMOGLOBIN 8.2 g/dl (13.5-17.5); LYMPH # 1.6 10^3/uL (1.5-5.0); LYMPH % 19.2 % (24.0-44.0); MEAN CORPUSCULAR HEMOGLOBIN 30.3 pg (27.0-33.0); MEAN CORPUSCULAR HGB CONC 32.8 g/dl (32.0-36.5); MEAN CORPUSCULAR VOLUME 92.3 fl (80.0-96.0); MONO # 0.8 10^3/uL (0.0-0.8); MONO % 9.4 % (2.0-8.0); NEUTROPHILS # 5.4 10^3/uL (1.5-8.5); NEUTROPHILS % 66.6 % (36.0-66.0); PLATELET COUNT, AUTOMATED 236 10^3/uL (150-450); RED BLOOD COUNT 2.71 10^6/uL (4.30-6.10); WHITE BLOOD COUNT 8.1 10^3/uL (4.0-10.0)
[2020-12-06 06:53] LABS: ALBUMIN 2.5 GM/DL (3.2-5.2); BILIRUBIN,TOTAL 0.3 MG/DL (0.2-1.0); CALCIUM LEVEL 8.7 MG/DL (8.5-10.1); CREATININE FOR GFR 4.64 MG/DL (0.70-1.30); GLOMERULAR FILTRATION RATE 14.1 (>56); MAGNESIUM LEVEL 1.9 MG/DL (1.8-2.4); POTASSIUM SERUM 4.3 MEQ/L (3.5-5.1); TOTAL PROTEIN 6.3 GM/DL (6.4-8.2)
[2020-12-06] MEDS: HumaLOG INSULIN (NovoLOG) PER UNIT SC SCH ×4 (07:30→20:27)
[2020-12-06] MEDS ORDERED: LIDOCAINE 2% 100MG/5ML SDV (FOR ANES.) As Ordered ONE (07:56)
[2020-12-06] MEDS ORDERED: propofoL 200 MG/20 ML VIAL As Ordered ONE (07:56)
[2020-12-06] MEDS ORDERED: fentaNYL 100 MCG/2 ML INJECTION (J3010) As Ordered ONE (07:59)
[2020-12-06] MEDS ORDERED: DARBEPOETIN 200MCG/0.4ML *DIALYSIS* SYRINGE (J0882 PER 1MCG) IV SCH (08:40)
--- NOTE | 2020-12-06 09:20 | ROOR ---
Patient Name: Sekou Alonzo Procedure Date: 12/06/2020 7:54 AM Date of : 1965 Age: 55 Gender: Male Note Status: Finalized Procedure: Upper GI endoscopy Indications: Anemia Providers: Marlo Nogueira MD Referring MD: 2. Inpatient 2. Inpatient, ADAM MICHELE JR, MD Requesting Provider: Medicines: Monitored Anesthesia Care Complications: No immediate complications. Procedure: Pre-Anesthesia Assessment: - The heart rate, respiratory rate, oxygen saturations, blood pressure, adequacy of pulmonary ventilation, and response to care were monitored throughout the procedure. The Endoscope was introduced through the mouth, and advanced to the second part of duodenum. The upper GI endoscopy was accomplished without difficulty. The patient tolerated the procedure well. Findings: The examined esophagus was normal. The entire examined stomach was normal. There was a medium-sized lipoma, 15- 20 mm in diameter, in the second portion of the duodenum. Biopsies were taken with a cold forceps for histology. A deep 15 mm diverticulum was found in the second portion of the duodenum. Impression: - Normal esophagus. - Normal stomach. - Moderate Duodenal lipoma. Biopsied. - Moderate Duodenal diverticulum. Recommendation: - Would hold colonoscopy--cologuard negative x 2 in past 12 months. Heme negative stool, Low TIBC, recent surgical blood loss - Observe patient's clinical course. - Advance diet as tolerated. - Does not need routine outpatient GI follow up. Can follow PRN. Procedure Code(s): --- Professional --- 12542, Esophagogastroduodenoscopy, flexible, transoral; with biopsy, single or multiple Diagnosis Code(s): --- Professional --- K57.10, Diverticulosis of small intestine without perforation or abscess without bleeding D50.9, Iron deficiency anemia, unspecified D17.5, Benign lipomatous neoplasm of intra-abdominal organs CPT copyright 2019 [employer]. All rights reserved. The codes documented in this report are preliminary and upon electrical/instrument technician review may be revised to meet current compliance requirements. Marlo Nogueira MD Marlo Nogueira MD 12/06/2020 9:19:58 AM Electronically signed by Marlo Nogueira MD Number of Addenda: 0 Note Initiated On: 12/06/2020 7:54 AM Estimated Blood Loss: Estimated blood loss: none.
[2020-12-06] MEDS ORDERED: ONDANSETRON 4MG/2ML VIAL IV PRN (09:40)
[2020-12-06 10:00] VITALS: BP 140/80
--- NOTE | 2020-12-06 10:32 | IPN ---
PROGRESS NOTE DATE: 12/06/2020 SUBJECTIVE: The patient was seen and examined at the bedside today morning at the __ Unit. He has just come back from the OR after getting upper GI endoscopy done. Today, is the patient's regular day of dialysis as well. No active complaints at this time. OBJECTIVE: VITAL SIGNS: Temperature is 97.8 degrees Fahrenheit, blood pressure 127/58, pulse is 79, respiratory rate is 12, saturating 93% on room air. INTAKE AND OUTPUT: Urine output recorded as 520 ml so far today since overnight. Weight on the bed scale is 153.1 kg yesterday. GENERAL: Patient is awake, alert and oriented x3, morbidly obese, laying in bed. HEAD AND NECK: Extraocular muscles intact. Pupils equally round and reactive to light. Mucous membranes are moist. Neck is supple. He has a right IJ tunnel hemodialysis catheter. CARDIOVASCULAR: S1 and S2, regular rate. Trace edema of the bilateral lower extremities. RESPIRATORY: Chest is clear to auscultation bilaterally. Bilateral equal air entry. No rales or rhonchi. ABDOMEN: Soft, obese, positive bowel sounds, nontender. No organomegaly. MUSCULOSKELETAL: He has a dressing on the right foot. WORKING FOREMAN: No focal deficit. Power is 5/5 in all extremities. LABORATORY DATA: CBC showed a WBC of 8.1, hemoglobin 8.2, platelets are 236,000. BMP showed a sodium of 140, potassium 4.3, chloride 108, bicarbonate 25, BUN 46, creatinine is 4.6, it was 4 yesterday. IMAGING: A foot x-ray was done yesterday which showed postoperative changes, partial excision and bony debridement of the base of the fourth metatarsal bone. CURRENT INPATIENT MEDICATIONS: Patient's medications were all reviewed by myself. His IV antibiotics have been changed to Unasyn 3 grams IV q. 24 hourly, Doxycycline has been stopped, Vancomycin and Ceftriaxone has also been stopped. ASSESSMENT AND PLAN: 1. Endstage renal disease. Patient is going to be dialyzed today for 3 1/2 hours. Ultrafiltration goal will be around 3 liters as tolerated by his blood pressure. 2. Anemia secondary to endstage renal disease. Patient had recent anemia. He required 2 units of PRBC transfusion. He just got the upper GI endoscopy done. The endoscopy did not show any ulceration in the stomach. There was a medium size lipoma in the duodenum. Biopsies were taken. There was a moderate duodenal diverticulum. He has been started on Aranesp and Venofer with dialysis, hopefully his hemoglobin should get better. 3. Right foot osteomyelitis. Patient is status post debridement and partial resection of fourth metatarsal. His IV antibiotics have been changed to Unasyn. The rest of the management is as per the medical team. 4. Acute on chronic decompensated diastolic congestive heart failure. Patient's volume status is being optimized with dialysis. Edema is getting better. He is currently not on any diuretics. 5. Hypertension with hypertensive heart disease. Continue current dose of amlodipine, Coreg, hydralazine and isosorbide.
[2020-12-06] MEDS: HEPARIN SOD (PORCINE) 5000UNITS/ML 1ML VIAL/SYRINGE SQ SCH ×2 (10:49→20:41)
[2020-12-06] MEDS: DOCUSATE SODIUM 100MG CAPSULE PO SCH ×2 (10:50→20:42)
[2020-12-06] MEDS: allopurinoL 100 MG TAB PO SCH ×2 (10:50→20:42)
[2020-12-06] MEDS: **hydrALAZINE HCL** 25 MG TAB PO SCH ×3 (10:50→20:43)
[2020-12-06] MEDS: ROSUVASTATIN 10 MG TAB (CRESTOR) PO SCH (10:50)
[2020-12-06] MEDS: CARVedilol 6.25 MG TAB PO SCH ×2 (10:51→20:43)
[2020-12-06] MEDS: PANTOPRAZOLE 40MG VIAL (C9113 PER 1) IV SCH ×2 (10:52→20:41)
[2020-12-06] MEDS: amLODIPine 5 MG TAB PO SCH (10:52)
[2020-12-06] MEDS: LACTOBACILLUS ACIDOPHILUS CAP (BACID) PO SCH ×2 (10:58→18:01)
[2020-12-06] MEDS: ISOSORBIDE DIN (ISORDIL) 10 MG TAB PO SCH ×2 (11:10→20:43)
--- NOTE | 2020-12-06 12:41 | IPN ---
PROGRESS NOTE DATE: 12/06/2020 SUBJECTIVE: Patient seen and examined. Denies complaints. States foot is feeling fine. LABORATORY DATA: White blood cell count is 8.1, hemoglobin is 8.2. OBJECTIVE: VITAL SIGNS: He has remained afebrile. LOWER EXTREMITY EXAMINATION: Dressings are removed. Wound is inspected. No further necrotic tissue. No active bleeding. ASSESSMENT: This is a 55-year-old diabetic male with osteomyelitis status post incision and drainage and bone excision. PLAN: Dressing changes ordered. Await operating room (OR) culture results. Once discharged, he should follow up with Dr. Robles for further wound care.
[2020-12-06] MEDS: IRON SUCROSE 100MG 5ML VIAL (J1756 PER 1MG) IV SCH (13:13)
--- NOTE | 2020-12-06 13:48 | IPNPDOC ---
Text Note Date of Service The patient was seen on 12/06/20. NOTE Subjective: No any acute events overnight. EGD was done in the morning patient tolerates procedure well Objective: GENERAL APPEARANCE: NAD HEENT: no scleral icterus, plus JVD, EOMI, hemodialysis catheter in the right internal jugular vein CARDIOVASCULAR: S1S2 LUNGS: CTA ABDOMEN: Obese, soft MUSCULOSKELETAL: no cyanosis, no swelling, right foot covered with dressing INTEGUMENT: no generalized pallor NEUROLOGICAL: cranial nerve function from 2-12 intact intact, follows commands, speech not dysarthric ASSESSMENT: 55 yo M with a hx of DM2 with neuropathy, CKD stage IV, HTN, gout, recurrent diabetic foot infections with amputation, who follows with Dr. Robles, presented to ER with complaint of worsening swelling, redness and drainage from a chronic wound on lateral aspect of the R foot. Patient will be admitted to hospitalist service for management of hypoglycemia, acute renal failure on CKD, hyperkalemia, acute anemia, and osteomyelitis of the R foot. R foot cellulitis with acute osteomyelitis of the 5th metatarsal remnant, extending into 4th and 5th metatarsal bases MRI right foot: 1. Limited noncontrast examination. 2. Findings concerning for acute osteomyelitis of the 5th metatarsal remnant, extending into an osteophyte connecting the 4th and 5th metatarsal bases, as described above. Continue Unasyn IV. Wound Cx from 11/30/20 positive for Staphylococcus aureus and Enterococcus faecalis. 12/04/20 Dr. Schulte took pt to OR 12/04/20 for debridement, await bone bx Acute on chronic anemia likely multifactorial 2/2 to iron deficiency, anemia of chronic disease Hemoglobin stable today, 8.2 Previous stool for occult blood negative EGD showed Normal stomach. Moderate Duodenal lipoma. Biopsied End-stage renal diseases/acute renal failure Patient will be dialyzed today Nephrology team follows him started on Aranesp and Venofer with dialysis Acute diastolic CHF Volume status regulated by dialysis Cardiac diet Type 2 diabetes c/w CC diet, ISS, FS AC/HS, hypoglycemic protocol HTN c/w hydralazine 25 mg PO TID, amlodipine 5 mg PO daily and carvedilol 6.25 mg BID, isosorbide dinitrate CHERELLE CPAP nightly VS,Fishbone, I+O VS, Fishbone, I+O Laboratory Tests 12/06/20 06:02 Vital Signs Date Time Temp Pulse Resp B/P (MAP) Pulse Ox O2 Delivery O2 Flow Rate FiO2 12/06/20 10:51 74 154/71 12/06/20 10:00 98.2 18 95 Room Air 12/05/20 18:45 96 12/05/20 09:00 3.0 I&O- Last 24 Hours up to 6 AM 12/06/20 05:59 Intake Total 4080 ml Output Total 1470 ml Balance 2610 ml TWILA WARREN Dec 06, 2020 13:48
[2020-12-06 17:09] VITALS: BP 171/83
[2020-12-06] MEDS: AMPICILLIN SOD/SULBACTAM SOD 3 GM in D5W MINI-BAG PLUS 100 ML IV SCH (17:19)
[2020-12-06] MEDS: TAMSULOSIN 0.4 MG CAP PO SCH (20:43)
[2020-12-06 22:00] VITALS: BP 140/75
[2020-12-07 02:00] VITALS: BP 138/70
[2020-12-07 06:00] VITALS: BP 153/67
[2020-12-07 06:44] LABS: BASO # 0.1 10^3/uL (0.0-0.2); BASO % 0.9 % (0.0-1.0); EOS # 0.2 10^3/uL (0.0-0.5); EOS % 3.3 % (0.0-3.0); HEMOGLOBIN 8.2 g/dl (13.5-17.5); LYMPH # 1.6 10^3/uL (1.5-5.0); MEAN CORPUSCULAR HEMOGLOBIN 30.1 pg (27.0-33.0); MEAN CORPUSCULAR HGB CONC 32.8 g/dl (32.0-36.5); MEAN CORPUSCULAR VOLUME 91.9 fl (80.0-96.0); MONO # 0.7 10^3/uL (0.0-0.8); MONO % 9.6 % (2.0-8.0); NEUTROPHILS # 4.3 10^3/uL (1.5-8.5); NEUTROPHILS % 62.5 % (36.0-66.0); PLATELET COUNT, AUTOMATED 234 10^3/uL (150-450); RED BLOOD COUNT 2.72 10^6/uL (4.30-6.10); WHITE BLOOD COUNT 6.9 10^3/uL (4.0-10.0)
[2020-12-07 07:15] LABS: ALBUMIN 2.5 GM/DL (3.2-5.2); BILIRUBIN,TOTAL 0.2 MG/DL (0.2-1.0); CALCIUM LEVEL 8.8 MG/DL (8.5-10.1); CREATININE FOR GFR 3.62 MG/DL (0.70-1.30); GLOMERULAR FILTRATION RATE 18.8 (>56); MAGNESIUM LEVEL 1.9 MG/DL (1.8-2.4); TOTAL PROTEIN 6.4 GM/DL (6.4-8.2)
[2020-12-07 10:00] VITALS: BP 135/52
[2020-12-07] MEDS: LACTOBACILLUS ACIDOPHILUS CAP (BACID) PO SCH ×2 (10:07→17:16)
[2020-12-07] MEDS: PANTOPRAZOLE 40MG VIAL (C9113 PER 1) IV SCH ×2 (10:07→21:05)
[2020-12-07] MEDS: allopurinoL 100 MG TAB PO SCH ×2 (10:08→21:11)
[2020-12-07] MEDS: DOCUSATE SODIUM 100MG CAPSULE PO SCH ×2 (10:08→21:06)
[2020-12-07] MEDS: amLODIPine 5 MG TAB PO SCH (10:08)
[2020-12-07] MEDS: ROSUVASTATIN 10 MG TAB (CRESTOR) PO SCH (10:08)
[2020-12-07] MEDS: **hydrALAZINE HCL** 25 MG TAB PO SCH ×3 (10:08→21:12)
[2020-12-07] MEDS: ISOSORBIDE DIN (ISORDIL) 10 MG TAB PO SCH ×2 (10:08→21:12)
[2020-12-07] MEDS: HumaLOG INSULIN (NovoLOG) PER UNIT SC SCH ×4 (10:09→21:00)
[2020-12-07] MEDS: CARVedilol 6.25 MG TAB PO SCH ×2 (10:09→21:13)
[2020-12-07] MEDS: HEPARIN SOD (PORCINE) 5000UNITS/ML 1ML VIAL/SYRINGE SQ SCH ×2 (10:09→21:06)
--- NOTE | 2020-12-07 12:45 | IPN ---
NEPHROLOGY PROGRESS NOTE DATE: 12/07/2020 SUBJECTIVE: Patient was seen and examined at the bedside today morning. He was dialyzed yesterday. He tolerated the hemodialysis procedure well. Repeat foot wound cultures are growing Staphylococcus aureus, methicillin sensitive. Patient denies any active complaints at this time. OBJECTIVE: VITAL SIGNS: Temperature 97.7 degrees Fahrenheit, blood pressure 153/67, pulse 75, respiratory rate 18, saturating 98% on room air. INTAKE AND OUTPUT: Urine output recorded as 200 mL since overnight. Ultrafiltration with hemodialysis was 2 liters. Weight in the bed scale is 146.7 kg. PHYSICAL EXAMINATION: GENERAL: Patient is awake, alert, oriented times three, morbidly obese, sitting up in bed, no apparent distress. HEAD AND NECK EXAM: Extraocular muscles intact. Pupils equally round and reactive to light. Mucous membranes are moist. Neck is supple. There is no jugular venous distention (JVD). He has a tunneled hemodialysis catheter. CARDIOVASCULAR: S1, S2. Regular rate. 2+ edema of the right ankle, trace edema of the left ankle. RESPIRATORY: Chest is clear to auscultation bilaterally. Bilateral equal air entry. No rales or rhonchi. ABDOMEN: Soft. Obese. Positive bowel sounds. Nontender. MUSCULOSKELETAL: He has a dressing on the right foot. CENTRAL NERVOUS SYSTEM (AUTOMATIC GLOVE FORMER): No focal deficits. Power is 5/5 in all extremities. LABORATORY STUDIES: CBC showed WBC 6.9, hemoglobin 8.2, platelets 234. BMP showed sodium 140, potassium 4, chloride 107, bicarbonate 25, BUN 27, creatinine 3.6. Albumin 2.5. MICROBIOLOGY: Repeat abscess cultures from the right foot are growing Staphylococcus aureus, which is methicillin sensitive. Esophagogastroduodenoscopy (EGD) was done yesterday, which showed normal esophagus, normal stomach, moderate duodenal lipoma and moderate duodenal diverticulum. CURRENT INPATIENT MEDICATIONS: Patient's medications were all reviewed by myself. I have added a dose of vancomycin to cover Staphylococcus aureus. He continues to be on intravenous (IV) Unasyn as well. ASSESSMENT AND PLAN: 1. End-stage renal disease. Patient was dialyzed yesterday. Next hemodialysis will be on Tuesday. I will need to check his outpatient dialysis regimen and we will put him on his outpatient regimen once I know the date and time of his dialysis. 2. Right foot osteomyelitis. Patient is already on Unasyn. I added vancomycin for Staphylococcus coverage. It needs to be clarified which antibiotic patient needs to be discharged home with. Medical team will get in touch with infectious disease. 3. Acute on chronic diastolic congestive heart failure. Patient's volume status is getting better. Two liters of fluid was removed yesterday. 4. Hypertension with hypertensive heart disease. Blood pressure is controlled with Coreg, hydralazine, isosorbide and amlodipine. 5. Anemia in end-stage renal disease and blood loss with dbridements. Hemoglobin is 8.2, which is suboptimal at this time. However, he was started on Venofer and Aranesp. If hemoglobin drops below 8, he will be given packed red blood cells (PRBC) transfusion.
[2020-12-07 14:00] VITALS: BP 152/69
[2020-12-07] MEDS ORDERED: VANCOMYCIN HCL 1,000 MG, VIAL MATE ADAPTER 1 EACH in NS 250 ML IV ONE (14:00)
--- NOTE | 2020-12-07 15:28 | IPNPDOC ---
Text Note Date of Service The patient was seen on 12/07/20. NOTE Subjective: No any acute events overnight. Patient denied fever, chills, nausea, vomiting diarrhea or dysuria Objective: GENERAL APPEARANCE: NAD HEENT: no scleral icterus, plus JVD, EOMI, hemodialysis catheter in the right internal jugular vein CARDIOVASCULAR: S1S2 LUNGS: CTA ABDOMEN: Obese, soft MUSCULOSKELETAL: no cyanosis, no swelling, right foot covered with dressing INTEGUMENT: no generalized pallor NEUROLOGICAL: cranial nerve function from 2-12 intact intact, follows commands, speech not dysarthric ASSESSMENT: 55 yo M with a hx of DM2 with neuropathy, CKD stage IV, HTN, gout, recurrent diabetic foot infections with amputation, who follows with Dr. Robles, presented to ER with complaint of worsening swelling, redness and drainage from a chronic wound on lateral aspect of the R foot. Patient will be admitted to hospitalist service for management of hypoglycemia, acute renal failure on CKD, hyperkalemia, acute anemia, and osteomyelitis of the R foot. R foot cellulitis with acute osteomyelitis of the 5th metatarsal remnant, extending into 4th and 5th metatarsal bases MRI right foot: 1. Limited noncontrast examination. 2. Findings concerning for acute osteomyelitis of the 5th metatarsal remnant, extending into an osteophyte connecting the 4th and 5th metatarsal bases, as described above. Continue Unasyn IV. Wound Cx from 11/30/20 positive for Staphylococcus aureus and Enterococcus faecalis. 12/04/20 Dr. Schulte took pt to OR 12/04/20 for debridement, await bone bx Culture from 12/04/20 showed staph aureus resistant to ampicillin. Doxycycline by mouth added I talked to Dr. Wall he recommended to continue antibiotic therapy for 10 days after discharge Acute on chronic anemia likely multifactorial 2/2 to iron deficiency, anemia of chronic disease Hemoglobin stable today Previous stool for occult blood negative EGD showed Normal stomach. Moderate Duodenal lipoma. Biopsied End-stage renal diseases/acute renal failure Nephrology team follows him started on Aranesp and Venofer with dialysis Acute diastolic CHF Volume status regulated by dialysis Cardiac diet Type 2 diabetes c/w CC diet, ISS, FS AC/HS, hypoglycemic protocol HTN c/w hydralazine 25 mg PO TID, amlodipine 5 mg PO daily and carvedilol 6.25 mg BID, isosorbide dinitrate CHERELLE CPAP nightly VS,Fishbone, I+O VS, Fishbone, I+O Laboratory Tests 12/07/20 06:16 Vital Signs Date Time Temp Pulse Resp B/P (MAP) Pulse Ox O2 Delivery O2 Flow Rate FiO2 12/07/20 14:00 97.8 67 17 152/69 (96) 98 Room Air 12/05/20 18:45 96 12/05/20 09:00 3.0 I&O- Last 24 Hours up to 6 AM 12/07/20 06:00 Intake Total 1160 ml Output Total 4020 ml Balance -2860 ml TWILA WARREN DO Dec 07, 2020 15:28
[2020-12-07] MEDS ORDERED: **VANCO AFTER HD** MISC XX SCH (16:00)
[2020-12-07] MEDS ORDERED: VANCOMYCIN HCL 1,000 MG, VIAL MATE ADAPTER 1 EACH in NS 250 ML IV SCH (16:00)
[2020-12-07] MEDS: AMPICILLIN SOD/SULBACTAM SOD 3 GM in D5W MINI-BAG PLUS 100 ML IV SCH (17:16)
[2020-12-07 18:00] VITALS: BP 158/70
[2020-12-07] MEDS: TAMSULOSIN 0.4 MG CAP PO SCH (21:06)
[2020-12-07] MEDS: DOXYCYCLINE HYCLATE 100MG TABLET PO SCH (21:06)
[2020-12-07 22:00] VITALS: BP 149/65
[2020-12-08 06:00] VITALS: BP 171/74
[2020-12-08 06:15] LABS: BASO # 0.1 10^3/uL (0.0-0.2); BASO % 0.7 % (0.0-1.0); EOS # 0.3 10^3/uL (0.0-0.5); EOS % 3.6 % (0.0-3.0); HEMATOCRIT 24.8 % (42.0-52.0); HEMOGLOBIN 8.4 g/dl (13.5-17.5); LYMPH # 1.6 10^3/uL (1.5-5.0); LYMPH % 21.5 % (24.0-44.0); MEAN CORPUSCULAR HEMOGLOBIN 31.5 pg (27.0-33.0); MEAN CORPUSCULAR HGB CONC 33.9 g/dl (32.0-36.5); MEAN CORPUSCULAR VOLUME 92.9 fl (80.0-96.0); MONO # 0.7 10^3/uL (0.0-0.8); MONO % 9.2 % (2.0-8.0); NEUTROPHILS # 4.8 10^3/uL (1.5-8.5); NEUTROPHILS % 63.8 % (36.0-66.0); PLATELET COUNT, AUTOMATED 227 10^3/uL (150-450); RED BLOOD COUNT 2.67 10^6/uL (4.30-6.10); WHITE BLOOD COUNT 7.5 10^3/uL (4.0-10.0)
[2020-12-08 06:48] LABS: ALBUMIN 2.3 GM/DL (3.2-5.2); BILIRUBIN,TOTAL 0.3 MG/DL (0.2-1.0); CREATININE FOR GFR 4.43 MG/DL (0.70-1.30); GLOMERULAR FILTRATION RATE 14.9 (>56); MAGNESIUM LEVEL 1.8 MG/DL (1.8-2.4); POTASSIUM SERUM 3.9 MEQ/L (3.5-5.1); TOTAL PROTEIN 6.6 GM/DL (6.4-8.2)
[2020-12-08] MEDS: PANTOPRAZOLE 40MG VIAL (C9113 PER 1) IV SCH ×2 (08:05→21:03)
[2020-12-08] MEDS: allopurinoL 100 MG TAB PO SCH ×2 (08:06→21:01)
[2020-12-08] MEDS: DOXYCYCLINE HYCLATE 100MG TABLET PO SCH (08:06)
[2020-12-08] MEDS: LACTOBACILLUS ACIDOPHILUS CAP (BACID) PO SCH ×2 (08:06→17:39)
[2020-12-08] MEDS: HEPARIN SOD (PORCINE) 5000UNITS/ML 1ML VIAL/SYRINGE SQ SCH ×2 (08:06→21:03)
[2020-12-08] MEDS: DOCUSATE SODIUM 100MG CAPSULE PO SCH ×3 (08:06→21:02)
[2020-12-08] MEDS: CARVedilol 6.25 MG TAB PO SCH ×2 (08:07→21:01)
[2020-12-08] MEDS: ROSUVASTATIN 10 MG TAB (CRESTOR) PO SCH (08:07)
[2020-12-08] MEDS: **hydrALAZINE HCL** 25 MG TAB PO SCH ×3 (08:07→21:02)
[2020-12-08] MEDS: ISOSORBIDE DIN (ISORDIL) 10 MG TAB PO SCH ×2 (08:08→21:02)
[2020-12-08] MEDS: amLODIPine 5 MG TAB PO SCH (08:08)
[2020-12-08] MEDS: HumaLOG INSULIN (NovoLOG) PER UNIT SC SCH ×4 (08:09→20:39)
[2020-12-08] MEDS: IRON SUCROSE 100MG 5ML VIAL (J1756 PER 1MG) IV SCH (09:20)
[2020-12-08 14:00] VITALS: BP 166/68
[2020-12-08] MEDS: AMPICILLIN SOD/SULBACTAM SOD 3 GM in D5W MINI-BAG PLUS 100 ML IV SCH (15:10)
--- NOTE | 2020-12-08 15:57 | IPNPDOC ---
Text Note Date of Service The patient was seen on 12/08/20. NOTE Subjective: No any acute events overnight. Dialysis was done today Objective: GENERAL APPEARANCE: NAD HEENT: no scleral icterus, plus JVD, EOMI, hemodialysis catheter in the right internal jugular vein CARDIOVASCULAR: S1S2 LUNGS: CTA ABDOMEN: Obese, soft MUSCULOSKELETAL: no cyanosis, no swelling, right foot covered with dressing INTEGUMENT: no generalized pallor NEUROLOGICAL: cranial nerve function from 2-12 intact intact, follows commands, speech not dysarthric ASSESSMENT: 55 yo M with a hx of DM2 with neuropathy, CKD stage IV, HTN, gout, recurrent diabetic foot infections with amputation, who follows with Dr. Robles, presented to ER with complaint of worsening swelling, redness and drainage from a chronic wound on lateral aspect of the R foot. Patient will be admitted to hospitalist service for management of hypoglycemia, acute renal failure on CKD, hyperkalemia, acute anemia, and osteomyelitis of the R foot. R foot cellulitis with acute osteomyelitis of the 5th metatarsal remnant, extending into 4th and 5th metatarsal bases MRI right foot: 1. Limited noncontrast examination. 2. Findings concerning for acute osteomyelitis of the 5th metatarsal remnant, extending into an osteophyte connecting the 4th and 5th metatarsal bases, as described above. Continue Unasyn IV. Wound Cx from 11/30/20 positive for Staphylococcus aureus and Enterococcus faecalis. 12/04/20 Dr. Schulte took pt to OR 12/04/20 for debridement, await bone bx Culture from 12/04/20 showed staph aureus resistant to ampicillin. Doxycycline by mouth added I talked to Dr. Wall he recommended to continue antibiotic therapy for 10 days after discharge Acute on chronic anemia likely multifactorial 2/2 to iron deficiency, anemia of chronic disease Hemoglobin stable today Previous stool for occult blood negative EGD showed Normal stomach. Moderate Duodenal lipoma. Biopsied End-stage renal diseases/acute renal failure Nephrology team follows him started on Aranesp and Venofer with dialysis Acute diastolic CHF Volume status regulated by dialysis Cardiac diet Type 2 diabetes c/w CC diet, ISS, FS AC/HS, hypoglycemic protocol HTN c/w hydralazine 25 mg PO TID, amlodipine 5 mg PO daily and carvedilol 6.25 mg BID, isosorbide dinitrate CHERELLE CPAP nightly VS,Fishbone, I+O VS, Fishbone, I+O Laboratory Tests 12/08/20 05:55 Vital Signs Date Time Temp Pulse Resp B/P (MAP) Pulse Ox O2 Delivery O2 Flow Rate FiO2 12/08/20 15:10 158/72 12/08/20 14:00 97.9 73 17 96 Room Air 12/05/20 18:45 96 12/05/20 09:00 3.0 I&O- Last 24 Hours up to 6 AM 12/08/20 05:59 Intake Total 2256 ml Output Total 1725 ml Balance 531 ml TWILA WARREN DO Dec 08, 2020 15:57
[2020-12-08 18:00] VITALS: BP_SYST 150; BP_SYST 174; BP_DIAS 71; BP_DIAS 72
[2020-12-08] MEDS: TAMSULOSIN 0.4 MG CAP PO SCH (21:02)
[2020-12-08 22:00] VITALS: BP 151/71
--- NOTE | 2020-12-08 22:47 | IPN ---
NEPHROLOGY PROGRESS NOTE DATE: 12/08/2020 SUBJECTIVE: Patient was seen and examined at the bedside today morning. He is getting hemodialysis done. He denies any active complaints at this time. OBJECTIVE: VITAL SIGNS: Temperature 97.9 degrees Fahrenheit, blood pressure 166/68, pulse 73, respiratory rate 17, saturating 96% on room air. INTAKE/OUTPUT: Urine output recorded as 1.4 liters yesterday and 900 mL so far today since overnight. Weight in the bed scale was 146.7 kg yesterday. PHYSICAL EXAMINATION: GENERAL: Patient is awake, alert, oriented x3, lying in bed getting hemodialysis done. HEAD/NECK: Extraocular muscles intact. Pupils equally round and reactive to light. Mucous membranes are moist. Neck supple. A tunneled hemodialysis catheter was noted. CARDIOVASCULAR: S1, S2, regular rate. 2+ edema of the right ankle and right leg. No edema on the left leg. RESPIRATORY: Chest is clear to auscultation bilaterally. Bilateral equal air entry. No rales or rhonchi. ABDOMEN: Soft, obese, positive bowel sounds, nontender. MUSCULOSKELETAL: Dressing on the right foot is soaked with a little bit of tissue fluids and blood. IT SECURITY CONSULTANT: No focal deficit. Power is 5/5 in all extremities. LABORATORY REVIEW: CBC showed WBC 7.5, hemoglobin 8.4, platelets 227,000. BMP showed sodium 139, potassium 3.9, chloride 107, bicarb 25, BUN 36, creatinine 4.4. CURRENT INPATIENT MEDICATIONS: Patient's medications were all reviewed by myself. He continues to be on Unasyn. Doxycycline was started yesterday, which has been stopped now. Vancomycin was also stopped. ASSESSMENT AND PLAN: 1. End-stage renal disease: Patient is being dialyzed according to his schedule, 2.5 liters of fluid will be removed as tolerated by his blood pressure. 2. Right foot cellulitis and acute osteomyelitis: He continues to be on Zosyn. The rest of the antibiotic regimen is as per ID recommendations. 3. Anemia secondary to end-stage renal disease, iron deficiency and bleeding from the foot: Patient is getting Venofer and Aranesp with dialysis. Hemoglobin level is stable and improving. 4. Acute on chronic diastolic congestive heart failure: Volume status is getting better. Right leg edema is secondary to infection in the foot. There is no edema on the left side. 5. Hypertension with hypertensive heart disease: Continue Coreg, Hydralazine, Amlodipine and Isosorbide.
[2020-12-09 06:00] VITALS: BP 138/65
[2020-12-09 06:23] LABS: BASO # 0.1 10^3/uL (0.0-0.2); BASO % 1.1 % (0.0-1.0); EOS # 0.3 10^3/uL (0.0-0.5); EOS % 3.8 % (0.0-3.0); HEMATOCRIT 25.5 % (42.0-52.0); HEMOGLOBIN 8.5 g/dl (13.5-17.5); LYMPH # 1.6 10^3/uL (1.5-5.0); LYMPH % 21.5 % (24.0-44.0); MEAN CORPUSCULAR HGB CONC 33.3 g/dl (32.0-36.5); MEAN CORPUSCULAR VOLUME 93.1 fl (80.0-96.0); MONO # 0.7 10^3/uL (0.0-0.8); MONO % 9.3 % (2.0-8.0); NEUTROPHILS # 4.7 10^3/uL (1.5-8.5); NEUTROPHILS % 63.4 % (36.0-66.0); PLATELET COUNT, AUTOMATED 247 10^3/uL (150-450); RED BLOOD COUNT 2.74 10^6/uL (4.30-6.10); WHITE BLOOD COUNT 7.4 10^3/uL (4.0-10.0)
[2020-12-09 06:48] LABS: ALBUMIN 2.5 GM/DL (3.2-5.2); BILIRUBIN,TOTAL 0.2 MG/DL (0.2-1.0); CALCIUM LEVEL 8.9 MG/DL (8.5-10.1); CREATININE FOR GFR 3.63 MG/DL (0.70-1.30); GLOMERULAR FILTRATION RATE 18.7 (>56); MAGNESIUM LEVEL 1.7 MG/DL (1.8-2.4); POTASSIUM SERUM 3.9 MEQ/L (3.5-5.1); TOTAL PROTEIN 6.9 GM/DL (6.4-8.2)
--- NOTE | 2020-12-09 08:37 | CR ---
CONSULTATION DATE: 12/08/2020 Asked to consult by hospitalist for chronic osteomyelitis of the right foot in a patient with Charcot arthropathy and insulin dependent diabetes. HISTORY OF PRESENT ILLNESS: Mr. Alonzo is a 55-year-old gentleman with insulin dependent diabetes, neuropathy, Charcot arthropathy, chronic diabetic foot ulcer of the right foot. The patient had been followed up by Dr. Robles for the past couple of months for chronic ulceration of the right foot. He states he has had an ulcer for about 10 years that opens and closes. Most recently, he had a blister that developed about a week prior to admission. He had debridement done. He was following up weekly at the wound clinic but then developed fever, chills, and worsening redness and drainage. The patient denied having any chest pain, shortness of breath, palpitations, nausea, vomiting, or diarrhea. He was admitted to the hospital. Wound culture was positive for methicillin-sensitive Staphylococcus aureus (MSSA), Enterococcus faecalis, and Corynebacterium. He has an MRI of the right foot which shows osteomyelitis of the 5th metatarsal with evidence of significant edema and myositis. Patient was taken to the operating room by Dr. Schulte for further debridement and resection of infected bone. The patient had previous amputation of the 5th toe of that foot done by Dr. Dooley in the past. He has been on IV Rocephin initially, then he was changed to vancomycin and Unasyn. PAST MEDICAL HISTORY: Diabetes with neuropathy, nephropathy, he started dialysis this admission, hypertension, chronic kidney disease currently on dialysis, gout, recurrent diabetic foot infection, obstructive sleep apnea on continuous positive airway pressure (CPAP), morbid obesity. PAST SURGICAL HISTORY: Hernia repair, 5th toe amputation on the right side, and incision and drainage (I and D) of the 5th metatarsal this hospitalization. SOCIAL HISTORY: Denies alcohol use, smoking, or drug abuse. He is on disability and does not work. ALLERGIES: No known drug allergies. MEDICATIONS: - hydralazine 25 mg by mouth three times a day - Aranesp 200 mcg IV daily - probiotics one tablet by mouth twice a day - Colace 100 mg by mouth twice a day - Coreg 6.25 mg by mouth twice a day - Crestor 10 mg by mouth daily - tamsulosin 0.4 mg by mouth nightly - glucagon as needed - Isordil 10 mg by mouth twice a day - milk of magnesia as needed - pantoprazole 40 mg IV every 12 hours - amlodipine 5 mg by mouth daily - Unasyn 3 grams IV every 24 hours - iron IV with hemodialysis - doxycycline 100 mg by mouth twice a day, day #2 - allopurinol 100 mg by mouth twice a day LABORATORY DATA: Sodium 139, potassium 3.9, chloride 107, bicarbonate 25, BUN 36, creatinine 4.43, glucose 154, calcium 9, magnesium 1.8, AST 18, ALT 23, alkaline phosphatase 63, CRP was 6, down to 2.38, white count 7.5, hemoglobin 8.4, hematocrit 24.8, platelets 227, 63% neutrophils, 21% lymphocytes, 9% monocytes. His hemoglobin was down to 6.9 on admission. Wound culture on 12/01/2020 is positive for MSSA, Enterococcus (E) faecalis, and Corynebacterium. Blood cultures two sets were negative. Stool Hemoccult was negative. Repeat intraoperative wound culture on 12/04/2020 had MSSA, E. faecalis. Anaerobic cultures are still pending. Foot MRI showed extensive swelling with edema status post amputation of the 5th metatarsal proximal metaphysis, there is extensive deformity compatible with chronic Charcot neuropathy, mild marrow edema in the 5th metatarsal and extending into an osteophyte containing the 4th and 5th metatarsal, there is fluid. Vascular ultrasound showed no significant stenosis. PHYSICAL EXAMINATION: He is a pleasant, middle aged gentleman, in no acute distress. Temperature is 98, pulse 75, respirations 18, blood pressure 150/71, oxygen saturation 91% on room air. Heart: Normal S1, S2, no murmurs, rubs, or gallops. Lungs are clear, no wheezes, rales, or rhonchi. Abdomen: Morbidly obese, soft, nontender. Upper chest wall has hemodialysis catheter in the right subclavian artery. Back: No costovertebral angle (CVA) or lumbosacral tenderness. Extremities: +1 edema bilaterally. Right foot Charcot arthropathy. Both feet are flat. Right foot is very swollen, especially along the lateral malleolus. There is an incision along the 5th metatarsal with Hydrofera Blue in the wound that is open. The wound incision measures 3-4 cm, there is serosanguineous drainage. There is mild surrounding cellulitis but no tenderness, absent sensation. IMPRESSION: There is a 55-year-old gentleman with chronic diabetic foot ulcers of the right foot status post ray amputation of the 5th toe in the past by Dr. Dooley, currently had incision and drainage done by Dr. Schulte and he has residual osteomyelitis. He has cultures positive for methicillin-sensitive Staphylococcus aureus (MSSA) and Enterococcus (E) faecalis. PLAN I would suggest treating him with IV vancomycin with hemodialysis upon discharge for 4-6 weeks until the wound heals. Should discuss with nephrology to make sure that they are able to do IV vancomycin after hemodialysis. If anaerobic cultures are positive then would suggest adding also metronidazole 500 mg by mouth three times a day while he is inpatient with continued Unasyn 3 grams daily after hemodialysis. MTDD
[2020-12-09] MEDS: HumaLOG INSULIN (NovoLOG) PER UNIT SC SCH ×2 (08:41→12:06)
[2020-12-09] MEDS: PANTOPRAZOLE 40MG VIAL (C9113 PER 1) IV SCH (08:41)
[2020-12-09] MEDS: HEPARIN SOD (PORCINE) 5000UNITS/ML 1ML VIAL/SYRINGE SQ SCH (08:41)
[2020-12-09] MEDS: LACTOBACILLUS ACIDOPHILUS CAP (BACID) PO SCH (08:41)
[2020-12-09] MEDS: ROSUVASTATIN 10 MG TAB (CRESTOR) PO SCH (08:42)
[2020-12-09] MEDS: amLODIPine 5 MG TAB PO SCH (08:42)
[2020-12-09] MEDS: allopurinoL 100 MG TAB PO SCH (08:42)
[2020-12-09 08:43] VITALS: BP 152/70
[2020-12-09] MEDS: DOCUSATE SODIUM 100MG CAPSULE PO SCH (08:43)
[2020-12-09] MEDS: CARVedilol 6.25 MG TAB PO SCH (08:43)
[2020-12-09] MEDS: **hydrALAZINE HCL** 25 MG TAB PO SCH (08:43)
[2020-12-09] MEDS: ISOSORBIDE DIN (ISORDIL) 10 MG TAB PO SCH (08:50)
[2020-12-09] MEDS ORDERED: RISATAB3 PO (12:10)
[2020-12-09] MEDS ORDERED: OMEP40CA97 PO (12:10)
[2020-12-09] MEDS ORDERED: DOK1CAP7 PO (12:10)
[2020-12-09] MEDS ORDERED: IRON1TAB2 PO (12:10)
--- NOTE | 2020-12-09 19:34 | DS.PDOC ---
Discharge Summary General Date of Admission December 01, 2020 at 20:00 Date of Discharge 12/09/20 Discharge Summary PROCEDURES PERFORMED DURING STAY: EGD, foot debridement ADMITTING DIAGNOSES: .R foot cellulitis with acute osteomyelitis of the 5th metatarsal remnant, extending into 4th and 5th metatarsal bases Acute on chronic anemia likely multifactorial 2/2 to iron deficiency, anemia of chronic disease End-stage renal diseases/acute renal failure Type 2 diabetes Acute diastolic CHF HTN CHERELLE DISCHARGE DIAGNOSES: .R foot cellulitis with acute osteomyelitis of the 5th metatarsal remnant, extending into 4th and 5th metatarsal bases Acute on chronic anemia likely multifactorial 2/2 to iron deficiency, anemia of chronic disease End-stage renal diseases/acute renal failure Type 2 diabetes Acute diastolic CHF HTN CHERELLE COMPLICATIONS/CHIEF COMPLAINT: Acute On Chronic Renal Insufficiency. HISTORY OF PRESENT ILLNESS: 55 yo M with a hx of DM2 with neuropathy, CKD stage IV, HTN, gout, recurrent diabetic foot infections with amputation, who follows with Dr. Robles, presented to ER with complaint of worsening swelling, redness and drainage from a chronic wound on lateral aspect of the R foot. Patient will be admitted to hospitalist service for management of hypoglycemia, acute renal failure on CKD, hyperkalemia, acute anemia, and osteomyelitis of the R foot. HOSPITAL COURSE: During the hospital stay the following issues addressed R foot cellulitis with acute osteomyelitis of the 5th metatarsal remnant, extending into 4th and 5th metatarsal bases MRI right foot: 1. Limited noncontrast examination. 2. Findings concerning for acute osteomyelitis of the 5th metatarsal remnant, extending into an osteophyte connecting the 4th and 5th metatarsal bases, as described above. Continue Unasyn IV. Wound Cx from 11/30/20 positive for Staphylococcus aureus and Enterococcus faecalis. 12/04/20 Dr. Schulte took pt to OR 12/04/20 for debridement, await bone bx Culture from 12/04/20 showed staph aureus resistant to ampicillin. recommended vancomycin IV for 6 weeks after discharge during dialysis. Anaerobes pending, if become anaerobes positive to add metronidazole by mouth to the regimen Acute on chronic anemia likely multifactorial 2/2 to iron deficiency, anemia of chronic disease Hemoglobin stable today Previous stool for occult blood negative EGD showed Normal stomach. Moderate Duodenal lipoma. Biopsied End-stage renal diseases/acute renal failure Nephrology team follows him started on Aranesp and Venofer with dialysis Acute diastolic CHF Volume status regulated by dialysis Cardiac diet Type 2 diabetes c/w CC diet, ISS, FS AC/HS, hypoglycemic protocol HTN c/w hydralazine 25 mg PO TID, amlodipine 5 mg PO daily and carvedilol 6.25 mg BID, isosorbide dinitrate CHERELLE CPAP nightly DISCHARGE MEDICATIONS: Please see below. ALLERGIES: Please see below. PHYSICAL EXAMINATION ON DISCHARGE: VITAL SIGNS: Please see below. GENERAL APPEARANCE: NAD HEENT: no scleral icterus, plus JVD, EOMI, hemodialysis catheter in the right internal jugular vein CARDIOVASCULAR: S1S2 LUNGS: CTA ABDOMEN: Obese, soft MUSCULOSKELETAL: no cyanosis, no swelling, right foot covered with dressing INTEGUMENT: no generalized pallor NEUROLOGICAL: cranial nerve function from 2-12 intact intact, follows commands, speech not dysarthric LABORATORY DATA: Please see below. IMAGING: [facility] NAME: SONYA ELI JR DATE OF : 1965 BUSINESS NUMBER: [id number] AGE: 55 SEX: M REPORT #: [id number] ROOM: [facility] TECHNOLOGIST: [id number] DOCTOR: Milvia Lo MD Ordered for Date&Time: 12/02/202146 cc: [~ rep ct ivnm] Service Date&Time: 12/02/202146 This report is in Signed status. Interpretation performed by [facility]. Thank you for having your radiology procedures performed at [facility] RADIOLOGY REPORT Date&Time printed: [~ rep prt dt last] [~ rep prt tm last] Page 2 of 2 [place] [id number] RADIOLOGY REPORT This report is in Signed status. Interpretation performed by [facility]. Thank you for having your radiology procedures performed at [facility] RADIOLOGY REPORT Date&Time printed: [~ rep prt dt last] [~ rep prt tm last] Page 1 of 2 NAME: SONYA ELI JR DATE OF : 1965 BUSINESS NUMBER: [id number] AGE: 55 SEX: M REPORT #: [id number] ROOM: [facility] TECHNOLOGIST: [id number] DOCTOR: Milvia Lo MD Ordered for Date&Time: 12/02/202146 cc: [~ rep ct ivnm] Service Date&Time: 12/02/202146 EXAMINATION REQUESTED: MRI FOOT WITHOUT CONTRAST RIGHT REASON FOR PATIENT VISIT: ACUTE ON CHRONIC RENAL INSUFFICIENCY REASON FOR EXAMINATION: r/o osteomyelitis PROCEDURE INFORMATION: Exam: MR Right Lower Extremity Other Than Joint Without Contrast; Foot Exam date and time: 12/02/2020 9:47 PM Age: 55 years old Clinical indication: Pain; Swelling, leg or foot; Right; Additional info: R/O osteomyelitis TECHNIQUE: Imaging protocol: MR of the Right lower extremity without contrast. Exam focused on the foot. COMPARISON: MRI-Foot W/O FOL WITH RIGHT 07/23/2016 9:29 AM FINDINGS: The examination is somewhat limited due to the lack of intravenous contrast. There is diffuse soft tissue swelling and subcutaneous edema with overlying skin thickening, compatible with cellulitis/myositis. There is a deep soft tissue ulceration along the lateral plantar surface of the 5th metatarsal shaft with a moderate to large amount of subjacent, loculated fluid. There is no soft tissue mass. No acute tendon or ligament injury is identified. The patient is status post amputation at the level of the 5th metatarsal proximal metaphysis. There is extensive deformity, disorganization and fragmentation of the midfoot with associated periarticular subcortical cystic change, compatible with chronic Charcot neuropathy. Similar, less pronounced findings are noted in the hindfoot. There is mild bone marrow edema in the 5th metatarsal remnant, extending into an osteophyte connecting the 4th and 5th metatarsal bases. This is evident on the fluid sensitive and T1 weighted sequences. No acute erosive or destructive changes are seen. There is no lytic or blastic lesion. There is a small amount of intra-articular fluid and synovitis diffusely. IMPRESSION: 1. Limited noncontrast examination. 2. Findings concerning for acute osteomyelitis of the 5th metatarsal remnant, extending into an osteophyte connecting the 4th and 5th metatarsal bases, as described above. 3. Additional findings, as above. Electronically signed by: Lang Mendez On 12/02/2020 22:07:47 PM DD: LANG MENDEZ MD 12/02/202146 DT: THOM 12/02/202206 DS: JOE 12/02/202206 [~ rep ct labl] PROGNOSIS: Fair ACTIVITY: [As tolerated]. DIET: Cardiac DISPOSITION: 01 Home, Self-Care ITEMS TO FOLLOWUP ON ON OUTPATIENT: Follow-up rn surgical, PCP DISCHARGE CONDITION: [Stable]. TIME SPENT ON DISCHARGE:40 minutes. Vital Signs/I&Os Vital Signs Date Time Temp Pulse Resp B/P (MAP) Pulse Ox O2 Delivery O2 Flow Rate FiO2 12/09/20 08:43 152/70 12/09/20 08:43 77 12/09/20 06:00 97.9 20 92 12/08/20 18:00 Room Air 12/05/20 18:45 96 12/05/20 09:00 3.0 I&O- Last 24 Hours up to 6 AM 12/09/20 06:00 Intake Total 1298 ml Output Total 3300 ml Balance -2002 ml Laboratory Data Labs 24H Laboratory Tests 2 12/08/20 20:36: Bedside Glucose (Misc Panel) 197H 12/09/20 06:06: Immature Granulocyte % (Auto) 0.9, Neutrophils (%) (Auto) 63.4, Lymphocytes (%) (Auto) 21.5L, Monocytes (%) (Auto) 9.3H, Eosinophils (%) (Auto) 3.8H, Basophils (%) (Auto) 1.1H, Neutrophils # (Auto) 4.7, Lymphocytes # (Auto) 1.6, Monocytes # (Auto) 0.7, Eosinophils # (Auto) 0.3, Basophils # (Auto) 0.1, Nucleated Red Blood Cells % (auto) 0.0, Anion Gap 5L, Glomerular Filtration Rate 18.7L, Calcium Level 8.9, Magnesium Level 1.7L, Total Bilirubin 0.2, Aspartate Amino Transf (AST/SGOT) 29, Alanine Aminotransferase (ALT/SGPT) 36, Alkaline Phosphatase 78, Total Protein 6.9, Albumin 2.5L, Albumin/Globulin Ratio 0.6 12/09/20 11:50: Bedside Glucose (Misc Panel) 239H CBC/BMP Laboratory Tests 12/09/20 06:06 FSBS Laboratory Tests Test 12/08/20 20:36 12/09/20 11:50 Range/Units Bedside Glucose (Misc Panel) 197 239 70-105 MG/DL Microbiology Microbiology 12/06/20 Stool Occult Blood (RICARDO) - Final, Complete 12/04/20 Gram Stain - Final, Complete 12/04/20 Abscess Culture - Final, Complete Staphylococcus Aureus Enterococcus Faecalis 12/04/20 Anaerobic Culture, Received Pending 12/04/20 Stool Occult Blood (RICARDO) - Final, Complete 12/01/20 Blood Culture - Final, Complete NO GROWTH AFTER 5 DAYS 12/01/20 Gram Stain - Final, Complete 12/01/20 Wound Culture - Final, Complete Staphylococcus Aureus Enterococcus Faecalis Corynebacterium Species 12/01/20 Blood Culture - Final, Complete NO GROWTH AFTER 5 DAYS Discharge Medications Scheduled Allopurinol (Allopurinol) 100 Mg Tablet, 100 MG PO BID, (Reported) Amlodipine Besylate (Amlodipine Besylate) 5 Mg Tablet, 5 MG PO DAILY, (Reported) Carvedilol (Carvedilol) 6.25 Mg Tablet, 6.25 MG PO BID, (Reported) Dulaglutide (Trulicity) 1.5 Mg/0.5 Ml Pen.injctr, 1.5 MG SC QWEEK, (Reported) TAKES ON FRIDAYS OR SATURDAYS Ergocalciferol (Vitamin D2) (Drisdol) 1,250 Mcg Capsule, 1,250 MCG PO QMONTH, (Reported) Famotidine (Famotidine) 40 Mg Tablet, 40 MG PO QHS, (Reported) Ferrous Sulfate (Iron) 325 Mg Tablet, 1 TAB PO BID Hydralazine HCl (Hydralazine HCl) 25 Mg Tablet, 25 MG PO TID, (Reported) Insulin Aspart (Novolog Flexpen) 100 Unit/1 Ml Insuln.pen, 1 DOSE SC AC, (Reported) PER SLIDING SCALE Insulin Glargine,Hum.rec.anlog (Toujeo Solostar) 300 Unit/1 Ml Insuln.pen, 60 UNIT SC QAM, (Reported) Insulin Glargine,Hum.rec.anlog (Toujeo Solostar) 300 Unit/1 Ml Insuln.pen, 40 UNIT SC QHS, (Reported) Isosorbide Dinitrate (Isosorbide Dinitrate) 10 Mg Tablet, 10 MG PO BID, (Reported) L.acidoph/L.bulg/B.bif/S.therm (Natalie-Bid Caplet) 1 Each Tablet, 1 EA PO BIDWM [place]-3 Fatty Acids/Fish Oil (Fish Oil 1,000 mg Capsule) 1 Each Capsule, 1,000 MG PO BID, (Reported) Omeprazole (Omeprazole) 40 Mg Capsule.dr, 1 CAP PO DAILY Potassium Chloride (Potassium Chloride) 20 Meq Tab.er.prt, 20 MEQ PO DAILY, ( Reported) Rosuvastatin Calcium (Rosuvastatin Calcium) 10 Mg Tablet, 10 MG PO DAILY, (Reported) Spironolactone (Spironolactone) 25 Mg Tablet, 25 MG PO BID, (Reported) Tamsulosin Hcl (Tamsulosin HCl) 0.4 Mg Capsule, 0.4 MG PO QHS, (Reported) Scheduled PRN Docusate Sodium (Dok) 100 Mg Capsule, 100 MG PO BID PRN for constipation Oxycodone HCl (Oxycodone HCl) 10 Mg Tablet, 10 MG PO QID PRN for PAIN, (Reported) Allergies Coded Allergies: No Known Allergies (Unverified , 09/30/18) TWILA WARREN DO Dec 09, 2020 19:34
--- NOTE | 2020-12-10 08:59 | IPN ---
NEPHROLOGY PROGRESS NOTE DATE: 12/09/2020 SUBJECTIVE: Patient was seen and examined at the bedside today morning. He is afebrile, hemodynamically stable. He was dialyzed yesterday. He tolerated the hemodialysis procedure well. He denies any active complaints at this time. OBJECTIVE: VITAL SIGNS: Temperature 97.9 degrees Fahrenheit, blood pressure 152/70, pulse 77, respiratory rate 20, saturating 92% on room air. INTAKE/OUTPUT: Urine output recorded as 300 mL. Ultrafiltration with dialysis was 2.5 liters. Weight in the bed scale is not available. PHYSICAL EXAMINATION: GENERAL: Patient is awake, alert, oriented x3, obese body habitus, sitting up in the bed, in no apparent distress. HEAD/NECK: Extraocular muscles intact. Pupils equally round and reactive to light. Mucous membranes are moist. Neck is supple. He has a right IJ tunneled hemodialysis catheter. CARDIOVASCULAR: S1, S2, regular rate. Trace edema of the left lower extremity and 2+ edema of the right lower extremity. RESPIRATORY: Chest is clear to auscultation bilaterally. Bilateral equal air entry. No rales or rhonchi. ABDOMEN: Soft, obese, positive bowel sounds. MUSCULOSKELETAL: Right foot dressing was noted. [employer] SALES MANAGER: No focal deficit. Power is 5/5 in all extremities. LABORATORY REVIEW: CBC showed WBC 7.4, hemoglobin 8.5, platelets 247,000. BMP showed sodium 140, potassium 3.9, chloride 107, bicarb 28, BUN 28, creatinine 3.6. Albumin 2.5. CURRENT INPATIENT MEDICATIONS: Patient's medications were all reviewed by myself. No significant change in the medications today. ASSESSMENT AND PLAN: 1. End-stage renal disease: Patient was dialyzed yesterday, next hemodialysis will be tomorrow as an outpatient. Patient has a dialysis chair available at [facility]. 2. Right foot cellulitis and acute osteomyelitis: Wound cultures are growing Staph Aureus and Enterococcus Faecalis; both of them are sensitive to Vancomycin. As per infectious disease recommendations, patient will get Vancomycin with each dialysis session for a total of six weeks now. I have called the dialysis center and informed them to give the patient 1.5 gram of Vancomycin with each dialysis. 3. Anemia secondary to end-stage renal disease and iron deficiency: Patient is getting Venofer and Aranesp. Hemoglobin level is suboptimal, but it is improving. He will continue the Venofer and Mircera as an outpatient. 4. Acute on chronic diastolic congestive heart failure: Volume status is getting better. He gets fluid removed with dialysis. Estimated dry weight will be adjusted as an outpatient. 5. Hypertension with hypertensive heart disease: Continue Isosorbide, Amlodipine, Hydralazine and Coreg. DISPOSITION: Patient is optimized from nephrology standpoint to be discharged home. He will be followed up as an outpatient at dialysis center.
== END 2020-12-09 13:12 | disposition home or self-care (01) | DRG 628 ==
LOC: M ED 15:16 → M ED INP 20:00 → ENRESERV 21:30 → M MSPAV 22:48
PROVIDERS: ADMIT Family Medicine; ATTEND Internal Medicine
PROC: 0QBN0ZZ Excision of Right Metatarsal, Open Approach (ICD-10-PCS; principal; 2020-12-01)
PROC: 0JH63XZ Insertion of Tunneled Vascular Access Device into Chest Subcutaneous Tissue and Fascia, Percutaneous Approach (ICD-10-PCS; 2020-12-03)
PROC: 02HV33Z Insertion of Infusion Device into Superior Vena Cava, Percutaneous Approach (ICD-10-PCS; 2020-12-03)
PROC: 5A1D70Z Performance of Urinary Filtration, Intermittent, Less than 6 Hours Per Day (ICD-10-PCS; 2020-12-03)
PROC: 30233N1 Transfusion of Nonautologous Red Blood Cells into Peripheral Vein, Percutaneous Approach (ICD-10-PCS; 2020-12-04)
PROC: 0DB98ZX Excision of Duodenum, Via Natural or Artificial Opening Endoscopic, Diagnostic (ICD-10-PCS; 2020-12-06)
DX: E11.69 Type 2 diabetes mellitus with other specified complication (principal); J96.01 Acute respiratory failure with hypoxia; J18.9 Pneumonia, unspecified organism; I50.33 Acute on chronic diastolic (congestive) heart failure; I13.2 Hypertensive heart and chronic kidney disease with heart failure and with stage 5 chronic kidney disease, or end stage renal disease; L03.115 Cellulitis of right lower limb; M86.171 Other acute osteomyelitis, right ankle and foot; Z68.42 Body mass index [BMI] 45.0-49.9, adult; E11.42 Type 2 diabetes mellitus with diabetic polyneuropathy; G47.33 Obstructive sleep apnea (adult) (pediatric); N18.6 End stage renal disease; E11.22 Type 2 diabetes mellitus with diabetic chronic kidney disease; M10.9 Gout, unspecified; E11.649 Type 2 diabetes mellitus with hypoglycemia without coma; D64.9 Anemia, unspecified; E66.01 Morbid (severe) obesity due to excess calories; E11.621 Type 2 diabetes mellitus with foot ulcer; L97.514 Non-pressure chronic ulcer of other part of right foot with necrosis of bone; E11.610 Type 2 diabetes mellitus with diabetic neuropathic arthropathy; D17.5 Benign lipomatous neoplasm of intra-abdominal organs; N17.9 Acute kidney failure, unspecified; K57.10 Diverticulosis of small intestine without perforation or abscess without bleeding; E87.70 Fluid overload, unspecified; D50.9 Iron deficiency anemia, unspecified; E87.5 Hyperkalemia; Z20.822 Contact with and (suspected) exposure to COVID-19; Z79.4 Long term (current) use of insulin; Z79.899 Other long term (current) drug therapy; B95.61 Methicillin susceptible Staphylococcus aureus infection as the cause of diseases classified elsewhere; B95.2 Enterococcus as the cause of diseases classified elsewhere; B96.89 Other specified bacterial agents as the cause of diseases classified elsewhere; Z99.2 Dependence on renal dialysis

== ENCOUNTER → 2020-12-23 | Outpatient (CLI) | payer MEDICARE, MEDICAID ==
[~2020-12-23] MED LIST changes: +ALLO100T PO; +AMLO1TAB24 PO; +CARV6.25 PO; +DOK1CAP7 PO; +DRIS50003 PO; +FAMO40TA3 PO; +FISH1000 PO; +HYDR-3910 PO; +IRON1TAB2 PO; +ISOS1TAB13 PO; +NOVOINJ3 SC; +OMEP40CA4 PO; +OXYC10TA12 PO; +POTA20TA6 PO; +RISATAB3 PO; +ROSU10TA6 PO; +SPIR-10 PO; +TAMS1CAP17 PO; +TOUJ1.2I SC; +TRUL0.5I SC; +TRUL0.5I SQ; +[UNRECOGNIZED DRUG - OTHER] PO
--- NOTE | 2020-12-23 12:41 | REP ---
INDICATION: CKD STAGE 4 COMPARISON: None. TECHNIQUE: Real time compression and duplex Doppler evaluation of the Bilateral upper extremity deep venous system is performed. FINDINGS: The Bilateral subclavian, jugular, axillary, brachial, basilic and cephalic veins are fully compressible where accessible with transducer pressure, and demonstrate no intraluminal thrombus and normal venous waveforms. There is no evidence of deep venous thrombosis. Right: Basilic vein size (mm)/ Cephalic vein size (mm) Upper humerus: 5/not seen Lower humerus:4/2 Upper forearm: 2/2 Lower forearm/wrist: 2/1 Median cubital:3 Right arterial structures: Peak systolic velocity (cm/s)/waveform/size (mm) Axillary: 64/triphasic/7 Brachial: 94/triphasic/5 Radial: 52/triphasic/1 Ulnar:80/triphasic/2 Left: Basilic vein size (mm)/ Cephalic vein size (mm) Upper humerus: 4/not seen Lower humerus:4/1 Upper forearm: 2/2 Lower forearm/wrist:2/1 Median cubital:4 Left arterial structures: Peak systolic velocity (cm/s)/waveform/size (mm) Axillary: 90/triphasic/7 Brachial: 108/triphasic/5 Radial: 67/triphasic/2 Ulnar: 75/triphasic/3 IMPRESSION: No evidence of deep venous thrombosis of the Bilateral upper extremity deep vein system. Arterial and venous sizes are given above. <Electronically signed by Dm Rosa > 12/23/20 [id number]
== END ==
LOC: M RAD 10:55 → EEVIPCON 11:30
PROVIDERS: ATTEND Internal Medicine Nephrology
DX: N18.4 Chronic kidney disease, stage 4 (severe) (principal); I12.9 Hypertensive chronic kidney disease with stage 1 through stage 4 chronic kidney disease, or unspecified chronic kidney disease; E11.22 Type 2 diabetes mellitus with diabetic chronic kidney disease; Z99.2 Dependence on renal dialysis

== ENCOUNTER 2021-01-09 18:07 | Outpatient (CLI) | payer MEDICARE, MEDICAID ==
[2021-01-09 18:00] VITALS: BP 121/71
[2021-01-09 21:37] VITALS: BP 118/44
[2021-01-09 21:38] VITALS: BP 118/44
[2021-01-09 21:53] VITALS: BP 122/46
[2021-01-09 22:38] VITALS: BP 150/75
[2021-01-09 23:38] VITALS: BP 143/41
[2021-01-10 00:52] VITALS: BP 159/74
== END 2021-01-10 01:04 ==
LOC: M OPCLI4PV 18:07 → M MSPAV 18:12 → M OPCLI4PV 01-10 01:04
PROVIDERS: ATTEND Internal Medicine Nephrology
DX: N18.9 Chronic kidney disease, unspecified (principal); D63.1 Anemia in chronic kidney disease
CPT/HCPCS: 36430; 86850; 86900; 86901; 86920; P9016

== ENCOUNTER → 2021-01-21 | Outpatient (REF) | payer MEDICARE | LOC: M SFHCPLAZ 09:08 | PROVIDERS: ATTEND Family Medicine | DX: E11.621 Type 2 diabetes mellitus with foot ulcer (principal) ==

== ENCOUNTER 2021-03-06 11:42 | Inpatient (IN) | payer MEDICARE ==
[~2021-03-06] VITALS: Ht 177.8 cm; Wt 133.6 kg
[~2021-03-06 11:42] MED LIST changes: -ALLO10TA PO; -FERR325T81 PO; -LEVO500T3 PO
[2021-03-06 13:26] LABS: BASO # 0.1 10^3/uL (0.0-0.2); BASO % 0.4 % (0.0-1.0); EOS # 0.1 10^3/uL (0.0-0.5); EOS % 1.2 % (0.0-3.0); HEMATOCRIT 26.1 % (42.0-52.0); HEMOGLOBIN 7.8 g/dl (13.5-17.5); LYMPH % 8.6 % (24.0-44.0); MEAN CORPUSCULAR HEMOGLOBIN 27.7 pg (27.0-33.0); MEAN CORPUSCULAR HGB CONC 29.9 g/dl (32.0-36.5); MEAN CORPUSCULAR VOLUME 92.6 fl (80.0-96.0); MONO # 1.1 10^3/uL (0.0-0.8); MONO % 10.2 % (2.0-8.0); NEUTROPHILS # 8.9 10^3/uL (1.5-8.5); PLATELET COUNT, AUTOMATED 442 10^3/uL (150-450); RED BLOOD COUNT 2.82 10^6/uL (4.30-6.10); WHITE BLOOD COUNT 11.2 10^3/uL (4.0-10.0)
--- NOTE | 2021-03-06 13:31 | REP ---
INDICATION: cough and increasing blood glucose. COMPARISON: 12/02/2020. TECHNIQUE: Single portable AP view of the chest was performed. FINDINGS: There is no acute infiltrate or pulmonary edema. Lungs are clear. The heart is not significantly enlarged. The mediastinal silhouette is unremarkable. The visualized osseous structures are intact.There is a right central venous catheter with the tip in the superior vena cava. IMPRESSION: No acute pulmonary disease. <Electronically signed by Dm Rosa > 03/06/21 [id number]
[2021-03-06 13:56] LABS: BLOOD UREA NITROGEN 52 MG/DL (7-18); CALCIUM LEVEL 9.9 MG/DL (8.5-10.1); CARBON DIOXIDE LEVEL 24 MEQ/L (21-32); CHLORIDE LEVEL 101 MEQ/L (98-107); GLOMERULAR FILTRATION RATE 12.6 (>56); GLUCOSE, FASTING 126 MG/DL (70-100); SODIUM LEVEL 134 MEQ/L (136-145)
[2021-03-06] MEDS ORDERED: ISOVUE-370 76% 100ML VIAL As Ordered ONE (14:27)
--- NOTE | 2021-03-06 15:23 | REP ---
INDICATION: pain, swelling and drainage from heal. COMPARISON: Radiographs 12/05/2020. TECHNIQUE: Axial CT performed following the intravenous administration of 100 cc of Isovue 370, with sagittal and coronal reconstruction images. FINDINGS: Again noted is absence of the base of the 4th metatarsal, as well as the entire 5th metatarsal and 5th toe phalanges. There is extensive fragmentation of the talus. There is severe erosive change diffusely of the calcaneus. Diffuse erosive changes also noted of the cuboid bone. There is diffuse fragmentation and erosive change of the navicular and cuneiform bones. There are erosive changes at the bases of the 1st through 3rd metatarsals. Underlying osteomyelitis of the tarsal bones cannot be excluded. At the proximal margin of the remaining 4th metatarsal there is a focus of air with an associated lobulated fluid collection measuring about 3.5 cm. This appears to have a tract draining to the skin laterally. There is a moderate amount of fluid at the ankle joint. At the posteromedial margin of the joint there is a multi loculated area of fluid which measures approximately 5.7 x 3.0 cm. There is diffuse edema and suspected cellulitis of the soft tissues of the ankle and foot. IMPRESSION: The base of the 4th metatarsal is absent, as is the entire 5th metatarsal and 5th toe phalanges. There is extensive fragmentation and erosive change of the tarsal bones and other bones of the hindfoot. Underlying osteomyelitis cannot be excluded. Adjacent to the remaining proximal 4th metatarsal is a lobulated fluid collection consistent with an abscess measuring about 3.5 cm in diameter. This appears to have a draining tract to the skin laterally. There is a moderate amount of fluid at the ankle joint. At the posteromedial margin of the joint there is a multiloculated area of fluid which measures 5.7 x 3.0 cm. <Electronically signed by Dm Rosa > 03/06/21 [id number]
[2021-03-06] MEDS ORDERED: GLUCAGON INJ 1MG VIAL SC PRN (16:05)
[2021-03-06] MEDS ORDERED: GLUCOSE 4GM CHEW TABLET PO PRN (16:05)
[2021-03-06] MEDS ORDERED: DEXTROSE 50% 50 ML SYRINGE IV PRN (16:05)
[2021-03-06] MEDS ORDERED: VANCOMYCIN HCL 1,000 MG, VIAL MATE ADAPTER 1 EACH in NS 250 ML IV ONE ×2 (16:30→18:00)
[2021-03-06] MEDS ORDERED: PERCOCET 5MG/325MG TAB PO ONE (16:40)
--- NOTE | 2021-03-06 17:17 | HPEPDOC ---
[facility] Medical History & Physical Date of Admission Mar 06, 2021 Date of Service: Mar 06, 2021 History and Physical CHIEF COMPLAINT: RT FOOT SWELLING, PAIN, TENDERNESS TODAY HISTORY OF PRESENT ILLNESS: 55 y/o M sent from Dr. Cantu's office wound care center where he presented for his routine hyperbaric oxygen and right foot surgical debridement due to acute onset of right foot 6x3cm fluid collection on the postero-medial ankle w tenderness and difficulty ambulating w subjective fevers w/o chills. He denied any recent trauma, and took tylenol for 8/10 pain this am. No purulent drainage noted, but bloody per patient when Rosa Elena at the wound center tried todebride it. In the ER, pt was found to have a right foot abscess w ct foot: ?osteo, right medial posterior ankle abscess. Pt was started on iv vanco, mrsa screen sent, and podiatry consulted for debridement. Hospitalist will admit for right foot cellulitis, abscess r/o osteomyelitis. PAST MEDICAL HISTORY: ckd4 chf diastolic grade 1 preserved ef morbid obesity bmi 41 dm2 gout htn chornic left foot ulcer w necrosis of mm right foot non pressure chronic ulcer w necoriss of muscle and fat layer exposed nonpressure crhonic ulcer of buttock with necrosis LVH dependent edema secondary hyperparathyroidism anemia of ckd dm peripheral neuropathy PAST SURGICAL HISTORY: toe amputations x 5 hernia repair right foot debridement 12/2020 kidney stone SOCIAL HISTORY: denies etoh, cig, drug use unemployed full code FAMILY HISTORY: Father: , dm htn Mother:, cancer ALLERGIES: Please see below. REVIEW OF SYSTEMS: 10 point ros neg aside from positive findings on hpi HOME MEDICATIONS: Please see below. PHYSICAL EXAMINATION: VITAL SIGNS: see below GENERAL APPEARANCE:disheveled. no distress HEENT:no jvd thyromegaly cervical lad moist mm CARDIOVASCULAR: s1 s2 rrr no carotid bruit LUNGS: ctab no w,r,r ABDOMEN: obese soft nt nd +bs no rebound or guarding EXTREMITIES: right lateral foot ulcer 1.2 cm serosanguineous drainage w exposed fat, erythema and tenderness along lateral foot w edema extending into the plantar,posterior foot, and medial ankle with 6 x 3 cm fluctuant area on posteriomedial ankle. amputated 4th ,5th metatarsals. chronic edema LABORATORY DATA: See below. IMAGING: see below MICROBIOLOGY: Please see below. ASSESSMENT: 55 y/o M sent from Dr. Cantu's office wound care center where he presented for his routine hyperbaric oxygen and right foot surgical debridement due to acute onset of right foot 6x3cm fluid collection on the postero-medial ankle w tenderness and difficulty ambulating w subjective fevers w/o chills. He denied any recent trauma, and took tylenol for 8/10 pain this am. No purulent drainage noted, but bloody per patient when Rosa Elena at the wound center tried todebride it. In the ER, pt was found to have a right foot abscess w ct foot: ?osteo, right medial posterior ankle abscess. Pt was started on iv vanco, mrsa screen sent, and podiatry consulted for debridement. Hospitalist will admit the patient as an inpt for 2 midnights for for right foot cellulitis, abscess r/o osteomyelitis. Right foot abscess, cellulitis/r/o osteomyelitis -iv vanco to be dosed by pharmacy -executive producer dr. cruz consulted for debridement and possible amputation -arterial dopplers december 2020: mild plaque from femoral to ankle right foot -prn percocet -monitor for respiratory acidosis and hypercarbia acute on ckd -baseline stage 4, now stage 5 -nephrology consulted for fluid mgt due to history of chf pef -renally dose vanco by pharmacy -strict i/o, weigh daily, and avoid nephrotoxins chf diastolic grade 1 preserved ef -nephrology consulted to manage fluid balance morbid obesity bmi 41 -complicating care dm2 -cons carbs, slide scale, fingersticks, check a1c gout -chronic htn, uncontrolled -due to pain -resume home meds and control pain chornic left foot ulcer w necrosis of mm -tele medicine w dr cantu on tuesday right foot non pressure chronic ulcer w necoriss of muscle and fat layer exposed -podiatry consulted for debridement and wound mgt nonpressure chronic ulcer of buttock with necrosis -chronic secondary hyperparathyroidism -due to ckd 4 anemia of ckd -repeat hgb if hgb<8, transfuse Vital Signs Vital Signs Date Time Temp Pulse Resp B/P (MAP) Pulse Ox O2 Delivery O2 Flow Rate FiO2 03/06/21 11:53 98.7 109 18 174/77 (109) 100 Room Air Laboratory Data Labs 24H Laboratory Tests 2 03/06/21 13:13: Immature Granulocyte % (Auto) 0.6, Neutrophils (%) (Auto) 79.0H, Lymphocytes (%) (Auto) 8.6L, Monocytes (%) (Auto) 10.2H, Eosinophils (%) (Auto) 1.2, Basophils (%) (Auto) 0.4, Neutrophils # (Auto) 8.9H, Lymphocytes # (Auto) 1.0L, Monocytes # (Auto) 1.1H, Eosinophils # (Auto) 0.1, Basophils # (Auto) 0.1, Nucleated Red Blood Cells % (auto) 0.0, Anion Gap 9, Glomerular Filtration Rate 12.6L, Calcium Level 9.9, C-Reactive Protein, Quantitative 18.50H 03/06/21 13:19: POC Glucose (Misc Panel) 132H, POC Sodium (Misc Panel) 134L, POC Potassium (Misc Panel) 4.9, POC Chloride (Misc Panel) 99, POC Total CO2 (Misc Panel) 25.0, POC Blood Urea Nitrogen (Misc Panel 49H, POC Ionized Calcium (Misc Panel) 4.6, POC Creatinine (Misc Panel) 5.6H, POC Hematocrit (Misc Panel) 24.0L 03/06/21 16:51: CBC/BMP Laboratory Tests 03/06/21 13:13 Home Medications Scheduled Allopurinol (Allopurinol) 100 Mg Tablet, 100 MG PO BID Amlodipine Besylate (Amlodipine Besylate) 5 Mg Tablet, 5 MG PO DAILY Carvedilol (Carvedilol) 6.25 Mg Tablet, 6.25 MG PO BID Dulaglutide (Trulicity) 1.5 Mg/0.5 Ml Pen.injctr, 1.5 MG SC QWEEK TAKES ON FRIDAYS OR SATURDAYS Ergocalciferol (Vitamin D2) (Drisdol) 1,250 Mcg Capsule, 1,250 MCG PO QMONTH Famotidine (Famotidine) 40 Mg Tablet, 40 MG PO QHS Ferrous Sulfate (Iron) 325 Mg Tablet, 1 TAB PO BID Hydralazine HCl (Hydralazine HCl) 25 Mg Tablet, 25 MG PO TID Insulin Aspart (Novolog Flexpen) 100 Unit/1 Ml Insuln.pen, 1 DOSE SC AC PER SLIDING SCALE Insulin Glargine,Hum.rec.anlog (Toujeo Solostar) 300 Unit/1 Ml Insuln.pen, 60 UNIT SC QAM Insulin Glargine,Hum.rec.anlog (Toujeo Solostar) 300 Unit/1 Ml Insuln.pen, 40 UNIT SC QHS Isosorbide Dinitrate (Isosorbide Dinitrate) 10 Mg Tablet, 10 MG PO BID L.acidoph/L.bulg/B.bif/S.therm (Natalie-Bid Caplet) 1 Each Tablet, 1 EA PO BIDWM Clarion-3 Fatty Acids/Fish Oil (Fish Oil 1,000 mg Capsule) 1 Each Capsule, 1,000 MG PO BID Omeprazole (Omeprazole) 40 Mg Capsule.dr, 1 CAP PO DAILY Potassium Chloride (Potassium Chloride) 20 Meq Tab.er.prt, 20 MEQ PO DAILY Rosuvastatin Calcium (Rosuvastatin Calcium) 10 Mg Tablet, 10 MG PO DAILY Spironolactone (Spironolactone) 25 Mg Tablet, 25 MG PO BID Tamsulosin Hcl (Tamsulosin HCl) 0.4 Mg Capsule, 0.4 MG PO QHS Scheduled PRN Docusate Sodium (Dok) 100 Mg Capsule, 100 MG PO BID PRN for constipation Oxycodone HCl (Oxycodone HCl) 10 Mg Tablet, 10 MG PO QID PRN for PAIN Allergies Coded Allergies: No Known Allergies (Unverified , 09/30/18) A-FIB/CHADSVASC A-FIB History Current/History of A-Fib/PAF?: No Current PO Anticoag Therapy: No Age/Risk Factor Scoring CHADSVASC: CHADSVASC Response (Comments) Value Gender Risk Factor Male 0 Hx of CHF Yes 1 Hx of HTN Yes 1 Hx of Stroke/TIA/or VTE No 0 Hx of Diabetes Yes 1 Hx of Vascular Disease Yes 1 Total 4 Treatment Treatment ordered: NONE SHIRA VARGAS MD Mar 06, 2021 17:17
[2021-03-06] MEDS ORDERED: HumaLOG INSULIN (NovoLOG) PER UNIT SC SCH ×2 (17:30→21:00)
[2021-03-06 17:33] LABS: RSV AMPLIFICATION NEGATIVE (NEGATIVE)
[2021-03-06 17:42] LABS: IRON (FE) 26 UG/DL (65-175); PERCENT SATURATION 15.2 % (19.7-50.0); TOTAL IRON BINDING CAPACITY 171 UG/DL (250-450)
[2021-03-06] MEDS ORDERED: HOME MED LIST COMPLETE! XX SCH (18:00)
[2021-03-06 18:01] LABS: HEMATOCRIT 23.3 % (42.0-52.0); HEMOGLOBIN 7.1 g/dl (13.5-17.5)
[2021-03-06 18:30] VITALS: BP 146/64
[2021-03-06 19:59] VITALS: BP 141/64
[2021-03-06] MEDS: LEVEMIR (INSULIN DETEMIR) 1 UNITS/0.01ML SC SCH (21:00)
--- NOTE | 2021-03-06 21:39 | REPVR ---
PROCEDURE INFORMATION: Exam: MR Right Lower Extremity Other Than Joint Without Contrast; Foot Exam date and time: 03/06/2021 4:40 PM Age: 55 years old Clinical indication: Cellulitis and edema and swelling, leg or foot; Yes, it is localized; Right; Prior surgery; Surgery date: 1-6 months; Surgery type: Removed piece of bone 4 mos ago; Additional info: Right foot osteo 4th digit? Cellulitis/abscess TECHNIQUE: Imaging protocol: MR of the Right lower extremity without contrast. Exam focused on the foot. COMPARISON: 1. CT FOOT WITH CONTRAST 03/06/2021 2:35 PM 2. MRI FOOT WITHOUT CONTRAST RIGHT 12/02/2020 9:11:15 PM FINDINGS: The examination is somewhat limited due to the lack of intravenous contrast. The patient is status post resection of the 5th metatarsal remnant, as well as the base and shaft of the 4th metatarsal. There is an acute to subacute fracture of the talus, extending to the tibiotalar joint. There is extensive deformity, disorganization and fragmentation about the midfoot and hindfoot, which has progressed since the prior study. There are diffuse associated periarticular erosive/destructive changes with pronounced associated bone marrow edema and a large amount of intra-articular fluid and synovitis. There is diffuse involvement of the midfoot and hindfoot. Bone marrow signal in the metatarsals and phalanges is grossly normal. There is severe, diffuse soft tissue swelling and subcutaneous edema with overlying skin thickening. There is a large, deep soft tissue ulceration along the lateral aspect of the 5th metatarsal with a large amount of complex, loculated subjacent fluid, which is confluent with the intra-articular fluid. There is no soft tissue mass. IMPRESSION: 1. Limited noncontrast examination. 2. Worsening chronic Charcot neuropathy with evidence of superimposed septic arthritis at multifocal osteomyelitis, as described above. 3. Acute to subacute fracture of the talus, extending to the tibiotalar joint. 4. Additional findings, as above. Electronically signed by: Lang Le On 03/06/2021 21:38:58 PM
[2021-03-06 21:51] VITALS: BP 142/65
[2021-03-06 22:07] VITALS: BP 144/66
[2021-03-06] MEDS: CARVedilol 6.25 MG TAB PO SCH (22:09)
[2021-03-06] MEDS: **hydrALAZINE HCL** 25 MG TAB PO SCH (22:10)
[2021-03-06] MEDS: allopurinoL 100 MG TAB PO SCH (22:10)
[2021-03-06] MEDS: ROSUVASTATIN 10 MG TAB (CRESTOR) PO SCH (22:10)
[2021-03-06] MEDS: FAMOTIDINE 20 MG TAB PO SCH (22:10)
[2021-03-06 22:52] VITALS: BP 141/67
[2021-03-06 23:36] VITALS: BP 133/73
[2021-03-07] VITALS (16 sets, daily range): BP systolic 129–157; BP diastolic 55–107
[2021-03-07] MEDS: HumaLOG INSULIN (NovoLOG) PER UNIT SC SCH ×5 (06:00→21:00)
[2021-03-07 06:30] LABS: BASO % 0.4 % (0.0-1.0); EOS # 0.1 10^3/uL (0.0-0.5); EOS % 1.3 % (0.0-3.0); HEMATOCRIT 25.5 % (42.0-52.0); HEMOGLOBIN 8.3 g/dl (13.5-17.5); LYMPH # 1.1 10^3/uL (1.5-5.0); LYMPH % 10.5 % (24.0-44.0); MEAN CORPUSCULAR HEMOGLOBIN 29.2 pg (27.0-33.0); MEAN CORPUSCULAR HGB CONC 32.5 g/dl (32.0-36.5); MEAN CORPUSCULAR VOLUME 89.8 fl (80.0-96.0); MONO % 9.7 % (2.0-8.0); NEUTROPHILS # 8.3 10^3/uL (1.5-8.5); NEUTROPHILS % 77.6 % (36.0-66.0); PLATELET COUNT, AUTOMATED 359 10^3/uL (150-450); RED BLOOD COUNT 2.84 10^6/uL (4.30-6.10); WHITE BLOOD COUNT 10.7 10^3/uL (4.0-10.0)
[2021-03-07 06:55] LABS: CALCIUM LEVEL 9.7 MG/DL (8.5-10.1); CREATININE FOR GFR 5.52 MG/DL (0.70-1.30); GLOMERULAR FILTRATION RATE 11.5 (>56)
--- NOTE | 2021-03-07 07:40 | IPNPDOC ---
Date Seen The patient was seen on 03/07/21. Progress Note SUBJECTIVE: denies fever, chills. no pain while lying in bed. no c/o sob, cp, pressure, tightness, n/v/abd pain. PHYSICAL EXAMINATION: VITAL SIGNS: see below GENERAL APPEARANCE:AAOx3, no distress. slight pallor, but no cyanosis HEENT:no jvd thyromegaly cervical lad moist mm CARDIOVASCULAR: s1 s2 rrr no carotid bruit LUNGS: ctab no w,r,r ABDOMEN: obese soft nt nd +bs no rebound or guarding EXTREMITIES: right lateral foot ulcer 1.2 cm serosanguineous drainage w exposed fat, erythema and tenderness along lateral foot w edema extending into the plantar,posterior foot, and medial ankle with 6 x 3 cm fluctuant area on posteriomedial ankle. amputated 4th ,5th metatarsals. chronic edema.charcot foot LABORATORY DATA: See below. IMAGING: see below MICROBIOLOGY: Please see below. ASSESSMENT: 55 y/o M sent from Dr. Robles's office wound care center where he presented for his routine hyperbaric oxygen and right foot surgical debridement due to acute onset of right foot 6x3cm fluid collection on the postero-medial ankle w tenderness and difficulty ambulating w subjective fevers w/o chills. He denied any recent trauma, and took tylenol for 8/10 pain this am. No purulent drainage noted, but bloody per patient when Rosa Elena at the wound center tried todebride it. In the ER, pt was found to have a right foot abscess w ct foot: ?osteo, right medial posterior ankle abscess. Pt was started on iv vanco, mrsa screen sent, and podiatry consulted for debridement. Hospitalist will admit the patient as an inpt for 2 midnights for for right foot cellulitis, abscess r/o osteomyelitis. Right foot abscess, cellulitis/ osteomyelitis -iv vanco to be dosed by pharmacy -assistant manager dr. cruz consulted for debridement and possible amputation -arterial dopplers december 2020: mild plaque from femoral to ankle right foot -prn percocet -monitor for respiratory acidosis and hypercarbia -npo for surgical debridement and possible amputation -medically optimized to proceed to surgery -d51/2 ns to prevent hypoglycemia while npo. acute on ckd -baseline stage 4, now stage 5 -nephrology consulted for fluid mgt due to history of chf pef -renally dose vanco by pharmacy -strict i/o, weigh daily, and avoid nephrotoxins chf diastolic grade 1 preserved ef, compensated -medically optimized to proceed to surgery -nephrology consulted to manage fluid balance morbid obesity bmi 41 -complicating care dm2 -cons carbs, slide scale, fingersticks -hypoglycemic protocol while npo -d51/2 ns while npo gout -chronic htn, controlled -on pain meds -resumed home meds chornic left foot ulcer w necrosis of mm -podiatry consulted right foot non pressure chronic ulcer w necoriss of muscle and fat layer exposed -podiatry consulted for debridement and wound mgt nonpressure chronic ulcer of buttock with necrosis -chronic secondary hyperparathyroidism -due to ckd 4 anemia of ckd/ acute blood loss due to debridement by Wound center -s/p 2 u rbc transfusion -transfuse if needed. diet: npo. awaiting surgery code: full VS, I&O, [facility] V[facility] Signs/I&O Vital Signs Date Time Temp Pulse Resp B/P (MAP) Pulse Ox O2 Delivery O2 Flow Rate FiO2 03/07/21 06:00 99.3 85 20 130/71 (90) 95 Room Air I&O- Last 24 Hours up to 6 AM 03/07/21 06:00 Intake Total 1040 ml Output Total 200 ml Balance 840 ml Laboratory Data 24H LABS Laboratory Tests 2 03/06/21 13:13: Immature Granulocyte % (Auto) 0.6, Neutrophils (%) (Auto) 79.0H, Lymphocytes (%) (Auto) 8.6L, Monocytes (%) (Auto) 10.2H, Eosinophils (%) (Auto) 1.2, Basophils (%) (Auto) 0.4, Neutrophils # (Auto) 8.9H, Lymphocytes # (Auto) 1.0L, Monocytes # (Auto) 1.1H, Eosinophils # (Auto) 0.1, Basophils # (Auto) 0.1, Reticulocyte # (auto) 55.5, Nucleated Red Blood Cells % (auto) 0.0, Differential Slide Review Report, Peripheral Blood Smear Path Consult PERIPHERAL SMEAR, Percent Reticulocyte Count 2.2H, Reticulocyte Hemoglobin Equivalent 29.6, Anion Gap 9, Glomerular Filtration Rate 12.6L, Calcium Level 9.9, Iron Level 26L, Total Iron Binding Capacity 171L, Transferrin % Saturation 15.2L, Ferritin , C-Reactive Protein, Quantitative 18.50H 03/06/21 13:19: POC Glucose (Misc Panel) 132H, POC Sodium (Misc Panel) 134L, POC Potassium (Misc Panel) 4.9, POC Chloride (Misc Panel) 99, POC Total CO2 (Misc Panel) 25.0, POC Blood Urea Nitrogen (Misc Panel 49H, POC Ionized Calcium (Misc Panel) 4.6, POC Creatinine (Misc Panel) 5.6H, POC Hematocrit (Misc Panel) 24.0L 03/06/21 16:51: Coronavirus (COVID-19)(PCR) NEGATIVE, Influenza Type A (RT-PCR) NEGATIVE, Influ lara Type B (RT-PCR) NEGATIVE, Respiratory Syncytial Virus (PCR) NEGATIVE 03/06/21 20:18: Bedside Glucose (Misc Panel) 192H 03/07/21 06:05: Bedside Glucose (Misc Panel) 146H 03/07/21 06:17: Immature Granulocyte % (Auto) 0.5, Neutrophils (%) (Auto) 77.6H, Lymphocytes (%) (Auto) 10.5L, Monocytes (%) (Auto) 9.7H, Eosinophils (%) (Auto) 1.3, Basophils (%) (Auto) 0.4, Neutrophils # (Auto) 8.3, Lymphocytes # (Auto) 1.1L, Monocytes # (Auto) 1.0H, Eosinophils # (Auto) 0.1, Basophils # (Auto) 0.0, Nucleated Red Blood Cells % (auto) 0.0, Anion Gap 7L, Glomerular Filtration Rate 11.5L, Calcium Level 9.7 CBC/BMP Laboratory Tests 03/06/21 13:13 03/06/21 17:30 03/07/21 06:17 SHIRA VARGAS MD Mar 07, 2021 07:40
[2021-03-07] MEDS ORDERED: BUPIVACAINE HCL 0.5% 10ML VIAL As Ordered ONE (07:47)
[2021-03-07] MEDS ORDERED: LIDOCAINE 1% MDV 20ML VIAL As Ordered ONE (07:47)
[2021-03-07] MEDS ORDERED: D5W/0.45% SODIUM CHLORIDE 1,000 ML IV SCH (08:00)
[2021-03-07] MEDS ORDERED: MIDAZOLAM INJ 2MG/2ML VIAL (J2250 PER 1MG) As Ordered ONE (08:44)
[2021-03-07] MEDS ORDERED: fentaNYL 100 MCG/2 ML INJECTION (J3010) As Ordered ONE (08:44)
[2021-03-07] MEDS ORDERED: propofoL 200 MG/20 ML VIAL As Ordered ONE ×2 (08:44→09:01)
[2021-03-07] MEDS: LEVEMIR (INSULIN DETEMIR) 1 UNITS/0.01ML SC SCH ×3 (09:00→21:07)
--- NOTE | 2021-03-07 09:28 | CR ---
CONSULTATION DATE: 03/07/2021 REASON FOR CONSULTATION: Right foot infection. HISTORY OF PRESENT ILLNESS: Sekou Alonzo is a 55-year-old diabetic male who is admitted to the hospital from the wound care center due to worsening nature and infection of his right foot ulcer. He is a longstanding patient of the wound care center. He had been seen by myself earlier this year and had bone excision. He states that the wound had closed but had reopened. When he went to wound care on Tuesday (yesterday), he was told there was an infection and sent to the emergency room. PAST MEDICAL HISTORY: Significant for chronic kidney disease stage 4, CHF, diabetes and neuropathy, gout, hypertension, right Charcot foot. SURGICAL HISTORY: Includes toe amputations, hernia repair, kidney stone. SOCIAL HISTORY: Denies alcohol or tobacco. FAMILY HISTORY: Includes diabetes. ALLERGIES: No known drug allergies. REVIEW OF SYSTEMS: He denies fevers or chills. Vitals: T-max on admission was 100.3, most recent 99.3. LABORATORY DATA: White blood cell count on admission 11.2. CRP is 18.5. IMAGING STUDIES: Foot CT shows a fluid collection measuring 5.7 cm. An MRI shows similar findings of fluid at the site of the wound. Lower extremity examination: There is a wound with necrotic tissue and purulence at the base of the fifth metatarsal area. ASSESSMENT: This is a patient with diabetes and Charcot foot with infected ulceration. PLAN: The patient to go to OR now for incision and drainage.
[2021-03-07] MEDS ORDERED: ONDANSETRON 4MG/2ML VIAL IV PRN (09:50)
[2021-03-07] MEDS ORDERED: fentaNYL 100 MCG/2 ML INJECTION (J3010) IV PRN (09:50)
[2021-03-07] MEDS ORDERED: PERCOCET 5MG/325MG TAB PO PRN (09:50)
[2021-03-07] MEDS ORDERED: NS 1,000 ML IV SCH (09:55)
--- NOTE | 2021-03-07 09:55 | RO ---
OPERATIVE NOTE DATE OF OPERATION: 03/07/2021 PREOPERATIVE DIAGNOSIS: Right foot infection. POSTOPERATIVE DIAGNOSIS: Right foot infection. PROCEDURE: Right foot incision and drainage. SURGEON: Ariel Schulte DPM HOP PICKER: None ANESTHESIA: Monitored anesthesia care, preop injection of 20 mL of a 1:1 mixture of 1% lidocaine plain, 1/2% Marcaine plain. ESTIMATED BLOOD LOSS: 10 mL MATERIALS: 4-0 Vicryl. INJECTABLES: None. COMPLICATION: None. SPECIMENS: Aerobic and anaerobic cultures. INDICATIONS: Sekou Alonzo is a 55-year-old diabetic male who was admitted with a right foot infection. He had imaging studies showing fluid collection in his lateral foot and also at the medial angle. Decision made to bring him to the operating room for incision and drainage. The patient's side and site were identified and marked in the preoperative area. Consent was reviewed and obtained. The risks, complications and alternatives to the procedure were explained to the patient in detail and all questions were answered. DESCRIPTION OF PROCEDURE: The patient was brought to the operating room and placed on the operating room table in supine position. Monitored anesthesia care was delivered by the anesthesia team. A preop injection of 20 mL of 1:1 mixture of 1% Lidocaine plain and 1/2% Marcaine plain were injected into the right foot. The right foot was prepped and draped in normal sterile fashion. No tourniquet was used during the procedure. The foot was inspected. There was an ulceration at the lateral foot with necrotic tissue. The medial foot and ankle had no signs of infection, no wounds or tense erythema. An initial stab incision was made at the medial ankle in the site suggested by the CT and MRI to have a fluid collection. Areas probed with a hemostat. No fluid or purulence was identified. The site was closed with 3-0 nylon. Attention was then paid to the lateral foot where the wound was present. An incision was made with a 15 blade. Immediate purulent and necrotic material was noted. Wound cultures were taken. The wound was debrided using rongeur and then the site was irrigated with 1000 mL of pulse irrigation. No further necrotic tissue was identified. The site was packed with saline gauze. The patient was brought to the PACU with vital signs stable, neurovascular status intact. He will be readmitted to the floor for antibiotics, start dressing changes tomorrow. I do not suspect he will need further surgery unless wound fails to improve. He should have followup outpatient by Dr. Robles at the wound care center.
[2021-03-07] MEDS: CARVedilol 6.25 MG TAB PO SCH ×2 (10:42→21:08)
[2021-03-07] MEDS: amLODIPine 5 MG TAB PO SCH (10:43)
[2021-03-07] MEDS: **hydrALAZINE HCL** 25 MG TAB PO SCH ×3 (10:43→21:08)
[2021-03-07] MEDS: allopurinoL 100 MG TAB PO SCH ×2 (10:43→21:08)
--- NOTE | 2021-03-07 12:43 | CR ---
NEPHROLOGY CONSULTATION DATE: 03/07/2021 REQUESTING PHYSICIAN: Jackie Dasilva M.D. REASON FOR CONSULTATION: Assist in the management of end-stage renal disease HISTORY OF PRESENT ILLNESS: Mr. Alonzo is a 55-year-old gentleman with known history of type 2 diabetes, hypertension, congestive heart failure, morbid obesity, gout, peripheral vascular disease and end-stage renal disease. He is currently on maintenance hemodialysis on Tuesday, Tuesday and Tuesday schedule. He missed his dialysis yesterday as he was in the emergency room due to right foot pain and swelling. He was found to have osteomyelitis and he was admitted. Nephrology consultation was requested and he was seen this morning. PAST MEDICAL HISTORY: Significant for: 1. History of longstanding type 2 diabetes. 2. Hypertension. 3. Morbid obesity. 4. Diastolic congestive heart failure. 5. Gout. 6. End-stage renal disease requiring maintenance hemodialysis. 7. History of peripheral vascular disease. 8. History of secondary hyperparathyroidism. 9. Anemia. 10. Peripheral neuropathy. PAST SURGICAL HISTORY: Significant for: 1. Multiple surgeries on his feet with toe amputations. 2. Hernia repair. 3. Right foot wound debridement. 4. Kidney stone removal. 5. Permacath placement. 6. Right arm arteriovenous (AV) fistula creation. PERSONAL AND SOCIAL HISTORY: Patient denies any alcohol, drug or tobacco use. FAMILY HISTORY: Significant for diabetes and end-stage renal disease. His father also had end-stage renal disease. REVIEW OF SYSTEMS: CONSTITUTIONAL: Patient denies any fever or chills. EARS, NOSE AND THROAT: Unremarkable. CARDIOVASCULAR SYSTEM: Significant for diastolic congestive heart failure. He denies any chest pain or palpitations at present. He does have some chronic lower extremity edema. GASTROINTESTINAL (GI) SYSTEM: Negative for vomiting or diarrhea. GENITOURIARY () SYSTEM: Negative for dysuria or hematuria MUSCULOSKELETAL SYSTEM: Significant for morbid obesity and nonhealing ulcers. SKIN: Significant for pressure ulcers on his buttocks and on his feet. NEUROLGOCIAL SYSTEM: Significant for peripheral neuropathy. He denies any strokes or seizures. HEMATOLOGICAL SYSTEM: Significant for anemia of chronic kidney disease. He is not on any long-term anticoagulation. PHYSICAL EXAMINATION: GENERAL: Patient is awake and alert at the time of my visit. He just had debridement of his right foot wound done by Dr. Schulte this morning. VITAL SIGNS: Temperature 97.4 degrees Fahrenheit, heart rate 76 per minute, respiratory rate 18 per minute, blood pressure 135/64 mmHg, oxygen saturation 94% on room air. HEAD: Atraumatic. NECK: Supple and jugular venous distention (JVD) difficult to be assessed while he is sitting upright on the edge of his bed. Right internal jugular vein Permacath is in place. HEART SOUNDS: Regular. LUNGS: Clear to auscultation. ABDOMEN: Soft, obese and nontender. Bowel sounds are normal. EXTREMITIES: Without any cyanosis or clubbing. Arteriovenous (AV) fistula in the right arm is patent and incision is nicely healed. His right foot is in dressing. There is edema on the right leg, but no edema on the left leg. NEUROLOGIC: He is awake, alert and at his baseline mentation. MEDICATIONS: His medications in the hospital include: - vancomycin 1 gram after each dialysis. - insulin per sliding scale - amlodipine 5 mg daily - Crestor 10 mg daily - hydralazine 25 mg three times a day - Pepcid 40 mg at bedtime - Coreg 6.25 mg twice a day - allopurinol 100 mg twice a day - Percocet one tablet every 4 hours as needed for severe pain. ALLERGIES: Patient has no known drug allergies. LABORATORY DATA: Yesterday, his hemoglobin was 7.1 and hematocrit 23.3. He has received 2 units of packed red blood cells. Today, WBC 10.7, hemoglobin 8.3, hematocrit 25.5, platelets 359. Sodium 133, potassium 5.0, CO2 26, BUN 57, creatinine 5.52, glucose 136, calcium 9.7. PROBLEMS: 1. End-stage renal disease. Patient is regularly dialyzed on Tuesday, Tuesday and Tuesday schedule. He missed his dialysis yesterday and will be dialyzed this afternoon. His electrolytes are stable and volume statis is reasonably well compensated. 2. Anemia. Patient did have severe anemia on admission and has already received 2 units of packed red blood cells. We will give him one more unit of blood today during dialysis. 3. Osteomyelitis right foot. Patient is currently on vancomycin 1 gram after each dialysis. Culture from his wound is still pending. 4. Hypertension. At present, blood pressure seems reasonably well controlled on current antihypertensive medications. 5. Congestive heart failure. Patient does have diastolic congestive heart failure in the setting of end-stage renal disease. His volume status is reasonably well compensated and we will remove about 2 liters of fluid with dialysis today. Thank you for involving me in the care of Mr. Alonzo. I will follow him along with you.
[2021-03-07] MEDS ORDERED: VANCOMYCIN HCL 1,000 MG, VIAL MATE ADAPTER 1 EACH in NS 250 ML IV SCH (16:00)
[2021-03-07] MEDS: **VANCO AFTER HD** MISC XX SCH (17:01)
[2021-03-07] MEDS: FAMOTIDINE 20 MG TAB PO SCH (21:09)
[2021-03-07] MEDS: ROSUVASTATIN 10 MG TAB (CRESTOR) PO SCH (21:09)
[2021-03-07] MEDS: PERCOCET 5MG/325MG TAB PO PRN (21:12)
[2021-03-08] MEDS: PERCOCET 5MG/325MG TAB PO PRN ×3 (01:07→10:06)
[2021-03-08 02:00] VITALS: BP 123/50
[2021-03-08 05:48] LABS: BASO % 0.4 % (0.0-1.0); EOS # 0.2 10^3/uL (0.0-0.5); EOS % 2.1 % (0.0-3.0); HEMOGLOBIN 9.1 g/dl (13.5-17.5); LYMPH # 1.4 10^3/uL (1.5-5.0); LYMPH % 16.5 % (24.0-44.0); MEAN CORPUSCULAR HEMOGLOBIN 28.3 pg (27.0-33.0); MEAN CORPUSCULAR HGB CONC 31.4 g/dl (32.0-36.5); MEAN CORPUSCULAR VOLUME 90.1 fl (80.0-96.0); MONO # 0.9 10^3/uL (0.0-0.8); MONO % 11.1 % (2.0-8.0); NEUTROPHILS # 5.7 10^3/uL (1.5-8.5); NEUTROPHILS % 69.2 % (36.0-66.0); PLATELET COUNT, AUTOMATED 390 10^3/uL (150-450); RED BLOOD COUNT 3.22 10^6/uL (4.30-6.10); WHITE BLOOD COUNT 8.2 10^3/uL (4.0-10.0)
[2021-03-08 06:00] VITALS: BP 77/44
[2021-03-08 06:12] LABS: CALCIUM LEVEL 9.5 MG/DL (8.5-10.1); CREATININE FOR GFR 4.21 MG/DL (0.70-1.30); GLOMERULAR FILTRATION RATE 15.8 (>56); POTASSIUM SERUM 4.9 MEQ/L (3.5-5.1)
[2021-03-08 07:11] VITALS: BP 128/78
[2021-03-08] MEDS: HumaLOG INSULIN (NovoLOG) PER UNIT SC SCH ×4 (07:30→20:47)
[2021-03-08] MEDS: amLODIPine 5 MG TAB PO SCH (08:25)
[2021-03-08] MEDS: allopurinoL 100 MG TAB PO SCH ×2 (08:25→20:46)
[2021-03-08] MEDS: **hydrALAZINE HCL** 25 MG TAB PO SCH ×3 (08:26→20:47)
[2021-03-08] MEDS: CARVedilol 6.25 MG TAB PO SCH ×2 (08:26→20:46)
[2021-03-08] MEDS: LEVEMIR (INSULIN DETEMIR) 1 UNITS/0.01ML SC SCH ×2 (08:27→20:44)
[2021-03-08 14:00] VITALS: BP 152/69
--- NOTE | 2021-03-08 14:30 | IPN ---
PROGRESS NOTE DATE: 03/08/2021 SUBJECTIVE: Patient denies any pain, fever, chills overnight. He is status post debridement of right foot infection and was not found to have any purulence identified. The wound was debrided and irrigated with no plans for further surgical intervention and with recommendations to follow up with Dr. Robles as outpatient. No other issues per nursing overnight. OBJECTIVE: VITAL SIGNS: Temperature 98.1, pulse 72, respiratory rate 18, blood pressure 128/78, 94% on room air. GENERAL: Patient is awake, alert, oriented to person, place and time, answering questions appropriately. LUNGS: Clear to auscultation. No wheezing, rales or rhonchi. HEART: S1, S2. Sinus rhythm. ABDOMEN: Soft, obese, nontender, nondistended. Positive bowel sounds. EXTREMITIES: Right foot is bandaged with chronic edema. Arteriovenous (AV) fistula is noted in the right arm. LABORATORY DATA/IMAGING STUDIES/MICROBIOLOGY: Have been reviewed. ASSESSMENT: This is a 55-year-old male with history of end-stage renal disease on hemodialysis Tuesday, Tuesday and Tuesday, diabetes, hypertension, congestive heart failure with preserved systolic function, peripheral vascular disease, obesity, gout, admitted due to complaints of right lower extremity pain and edema, found to have a fluid collection and osteomyelitis, brought to the operating room by pump oiler, Dr. Schulte, and started on intravenous (IV) vancomycin. Patient underwent incision and drainage and debridement with no plans for further surgical intervention. Acute issues are as follows: 1. Right Charcot foot with infected ulceration and fluid collection status post incision and drainage with no signs of abscess. MRI shows septic arthritis that is multifocal osteomyelitis with an acute and subacute fracture of the talus extending to the tibiotalar joint. 2. End-stage renal disease on maintenance dialysis. 3. Type 2 diabetes, controlled. 4. Hypertension, controlled. 5. Morbid obesity, body mass index (BMI) 42.3. 6. Congestive heart failure diastolic dysfunction, compensated. 7. Gout, chronic. 8. Secondary hyperparathyroidism. PLAN: Patient is continued on intravenous (IV) vancomycin. Awaiting right foot wound cultures. Pharmacy is dosing according to patient's renal function. Senior Communications Specialist has been consulted according to dialysis needs. Postoperative management per Dr. Schulte. Dr. Robles to be consulted on Tuesday, since it is Labor Day on Tuesday, for chronic wound changes. No further plans for debridement or amputation by Dr. Schulte. Pain control with Percocet 1-2 tablets. Monitor for hypercarbia and respiratory failure. He is continued on his home dose of Norvasc, Levemir insulin, Crestor, hydralazine, Pepcid, Coreg, allopurinol. On hypoglycemic protocol. MTDD
--- NOTE | 2021-03-08 15:01 | IPN ---
NEPHROLOGY PROGRESS NOTE DATE: 03/08/2021 SUBJECTIVE: Mr. Alonzo is seen this morning on his bedside. He is feeling well and denies any complaints. He had debridement done on his right foot wound where he has osteomyelitis. He remains afebrile and on antibiotics. Patient missed his dialysis on Tuesday and he was dialyzed yesterday, which he tolerated well. He has been transfused 3 units of packed red blood cells so far due to severe anemia. Patient denies any dyspnea, chest pain, nausea or vomiting. PHYSICAL EXAMINATION: VITAL SIGNS: Temperature 98 degrees Fahrenheit, heart rate 72 per minute, respiratory rate 18 per minute, blood pressure 128/78 mmHg, oxygen saturation 94% on room air. HEAD: Atraumatic. NECK: Supple and without jugular venous distention (JVD) or thyroid enlargement. HEART SOUNDS: Regular. LUNGS: Clear to auscultation. ABDOMEN: Soft and nontender. Bowel sounds are normal. EXTREMITIES: Without any cyanosis or clubbing. Right foot is wrapped in dressing. He has a fistula in his right arm, which is patent. NEUROLOGIC: He is awake, alert and oriented times three. LABORATORY DATA: Today's labs show WBC 8.2, hemoglobin 9.2, hematocrit 29.0. Sodium 136, potassium 4.9, CO2 25, BUN 43, creatinine 4.21. PROBLEMS: 1. End-stage renal disease. Patient was dialyzed yesterday as he missed his dialysis on Tuesday. He will be scheduled for his next dialysis on Tuesday. At present, his volume status is well compensated and electrolytes are within normal range. There is no emergent indication for dialysis today. 2. Anemia. Patient did have significant anemia on admission. This is most likely related to osteomyelitis in the setting of end-stage renal disease. He has been transfused a total of 3 units of packed red blood cells so far and anemia has improved. He does have iron deficiency. I am going to hold off on intravenous iron until his infection is controlled. 3. Hypertension. Blood pressure is very well controlled on current antihypertensives and no changes are needed. 4. Osteomyelitis, right foot. Patient had wound debridement done already and he remains on intravenous vancomycin after each dialysis. He is currently afebrile. 5. Hyponatremia. Sodium level has corrected to normal range and no intervention is needed at present. 6. Hypertension. Blood pressure very well controlled on current medications and no changes are being made today. 7. Diastolic congestive heart failure. Patient has known history of diastolic congestive heart failure, which is well compensated at present. No intervention is needed at present. His congestive heart failure is being managed with dialysis.
[2021-03-08] MEDS: **VANCO AFTER HD** MISC XX SCH (16:00)
[2021-03-08] MEDS: ROSUVASTATIN 10 MG TAB (CRESTOR) PO SCH (20:44)
[2021-03-08] MEDS: FAMOTIDINE 20 MG TAB PO SCH (20:46)
[2021-03-08 22:00] VITALS: BP 137/71
[2021-03-09 06:00] VITALS: BP 134/72
[2021-03-09] MEDS: allopurinoL 100 MG TAB PO SCH (06:32)
[2021-03-09] MEDS: **hydrALAZINE HCL** 25 MG TAB PO SCH ×3 (06:32→21:42)
[2021-03-09] MEDS: CARVedilol 6.25 MG TAB PO SCH ×2 (06:32→21:44)
[2021-03-09] MEDS: amLODIPine 5 MG TAB PO SCH (06:33)
[2021-03-09 07:04] LABS: BASO # 0.1 10^3/uL (0.0-0.2); BASO % 0.7 % (0.0-1.0); EOS # 0.2 10^3/uL (0.0-0.5); EOS % 2.4 % (0.0-3.0); HEMATOCRIT 28.5 % (42.0-52.0); HEMOGLOBIN 8.9 g/dl (13.5-17.5); LYMPH # 1.4 10^3/uL (1.5-5.0); LYMPH % 16.4 % (24.0-44.0); MEAN CORPUSCULAR HEMOGLOBIN 28.3 pg (27.0-33.0); MEAN CORPUSCULAR HGB CONC 31.2 g/dl (32.0-36.5); MEAN CORPUSCULAR VOLUME 90.5 fl (80.0-96.0); MONO # 0.8 10^3/uL (0.0-0.8); MONO % 10.1 % (2.0-8.0); NEUTROPHILS # 5.7 10^3/uL (1.5-8.5); NEUTROPHILS % 69.9 % (36.0-66.0); PLATELET COUNT, AUTOMATED 354 10^3/uL (150-450); RED BLOOD COUNT 3.15 10^6/uL (4.30-6.10); WHITE BLOOD COUNT 8.2 10^3/uL (4.0-10.0)
[2021-03-09 07:25] LABS: CALCIUM LEVEL 9.2 MG/DL (8.5-10.1); CREATININE FOR GFR 5.63 MG/DL (0.70-1.30); GLOMERULAR FILTRATION RATE 11.3 (>56); POTASSIUM SERUM 4.5 MEQ/L (3.5-5.1); VANCOMYCIN RANDOM 17.7 UG/ML
[2021-03-09] MEDS: HumaLOG INSULIN (NovoLOG) PER UNIT SC SCH ×4 (07:54→21:00)
[2021-03-09] MEDS: LEVEMIR (INSULIN DETEMIR) 1 UNITS/0.01ML SC SCH ×2 (07:55→21:44)
[2021-03-09] MEDS ORDERED: DARBEPOETIN 100 MCG/0.5 ML *DIALYSIS* SYRINGE (J0882) IV SCH (08:30)
[2021-03-09] MEDS ORDERED: LevoFLOXacin IV 750 MG in IV 1 EA IV ONE (09:00)
--- NOTE | 2021-03-09 09:40 | IPN ---
PROGRESS NOTE DATE: 03/09/2021 SUBJECTIVE: Patient denies any pain and says that he has chronic neuropathy. Has no fever or chills overnight. No drainage at the site. Per Dr. Schulte, no plans for further debridement or amputations in the future with recommendations to continue outpatient follow-up with [facility] with Dr. Robles. No other complaints this morning. OBJECTIVE: VITAL SIGNS: Temperature 99.3, pulse 79, respiratory rate 14, blood pressure is 134/72, 96% on room air. GENERAL: Awake, alert and oriented to person, place and time, answering questions appropriately. No cyanosis. Able to speak in full sentences. NECK: No JVD or thyromegaly. LUNGS: Clear to auscultation. No wheezing, rales or rhonchi. HEART: S1 and S2, sinus rhythm. ABDOMEN: Obese, soft, nontender, nondistended. Positive bowel sounds. EXTREMITIES: Right foot is bandaged, chronic edema. AV fistula in the right arm. LABORATORY DATA, IMAGING STUDIES/MICROBIOLOGY: Have been reviewed. ASSESSMENT AND PLAN: This is a 55-year-old male with a history of endstage renal disease on maintenance dialysis Tuesday, Tuesday and Tuesday, diabetes, hypertension, obesity, with prior amputations and follows with Dr. Robles for chronic diabetic foot ulcers, receiving hyperbaric oxygen, was seen at Dr. Robles's office where he was found to have acute onset of edema and multiple pockets of fluid in the right foot. Patient was sent to the Emergency Room. MRI shows possible osteomyelitis and soft tissue loculations, rule out abscess. Dr. Schulte was consulted and the patient underwent debridement. ACTIVE ISSUES: 1. Right Charcot foot with infected diabetic ulcer and fluid collection status post incision and drainage with no signs of abscess on exploration by Dr. Schulte. MRI of the right foot shows septic arthritis with multifocal osteomyelitis with acute on chronic subacute fracture of the talus extending to the tibiotalar joint. Dr. Schulte has been consulted for management of patient's fluid collection upon incision. There are no signs of abscess. Patient was on IV Vancomycin. Wound cultures grew out E. coli, currently transitioned to renally doses Levaquin 750 on the first dose and 500 q. 48 hours to be managed by pharmacy for renal dosing. Per Dr. Schulte, there are no indications for repeat debridement. He recommends follow-up with Dr. Robles as an outpatient at [facility] who will decide continued hyperbaric oxygen if needed but patient is to complete his antibiotics. We are awaiting the anaerobic cultures to return in order to discharge the patient home with home care for dressing changes and wound care. 2. Endstage renal disease on maintenance dialysis Tuesday, Tuesday and Tuesday. Dr. Mcconnell has been consulted and currently managing his fluid balance via dialysis. Antibiotics are to be given after dialysis sessions to be renally dosed. 3. Type 2 diabetes, currently controlled on consistent carbohydrate renal disease, insulin sliding scale with coverage. 4. Hypertension, stable. He has been resumed on his home medications. 5. Morbid obesity, BMI is 42.3, complicating care. 6. Compensated diastolic congestive heart failure managed by dialysis for fluid balance. 7. Gout, chronic. 8. Anemia of chronic renal failure. No acute indication for RBC transfusion. No active bleeding currently. Patient did receive three units of RBC on admission due to some blood loss when the patient was debrided at the [facility] prior to hospital admission if current hemoglobin is 8.9 to 9.1 and no active signs of bleeding. 9. Secondary hyperparathyroidism secondary to renal failure, managed by nephrology, chronic. 10.Osteomyelitis of the right foot, on IV Vancomycin currently. Transition over to Levaquin according to the wound culture. 11.Hyponatremia, corrected with dialysis. MTDD
--- NOTE | 2021-03-09 10:35 | IPN ---
PROGRESS NOTE DATE: 03/09/2021 SUBJECTIVE: Mr. Alonzo is seen and examined this morning in the hemodialysis unit receiving his treatment. He has no complaints. Patient reports there are no plans for further debridement. He is going to continue to follow-up with Dr. Robles and the [facility]. The patient is continued on an antibiotic regimen and is now being switched over the Levofloxacin managed by the Primary Team. Dialysis has been uneventful. He denies any shortness of breath. OBJECTIVE: VITAL SIGNS: Temperature is 99.3, pulse is 79, respiratory rate 14, blood pressure is 134/72, saturating 96% on room air. INTAKE AND OUTPUT: Intake yesterday was 1740. Weight on the bed scale today is not recorded. GENERAL: Patient is seen awake, alert and oriented, comfortable, receiving his dialysis treatment in no distress. HEENT: Extraocular muscles are intact. Tongue is moist. NECK: Supple. Jugular veins are not elevated. HEART: Heart sounds are regular, S1 and S2. There is no edema in the lower extremities. LUNGS: Clear to auscultation. There is no crackle or rale. ABDOMEN: Soft and nontender. There is a tunneled hemodialysis catheter in the right chest wall which is currently in use and he has a fistula in the right arm with thrill and bruit. EXTREMITIES: No cyanosis or clubbing. His right foot is wrapped in dressings. There is no significant peripheral edema. NEUROLOGIC: He is awake, alert and oriented x3. LABORATORY DATA: Today's laboratory studies shows white count of 8.2, hemoglobin 8.9, platelets of 354,000. Sodium is 133, potassium is 4.5, calcium is 9.2. INPATIENT MEDICATIONS: I note his Vancomycin has been stopped. He is in for Levofloxacin. He continues on Allopurinol. I cut the dose down to 100 mg daily. I started him on Aranesp 100 mcg with dialysis. He continues on Amlodipine, Carvedilol, hydralazine, insulin and Rosuvastatin. PROBLEMS: 1. Endstage renal disease on hemodialysis on a Tuesday, Tuesday and Tuesday schedule. Patient is dialyzed today. His electrolytes and volume status are acceptable. He has a maturing fistula in the right arm and presently he is being dialyzed via Perm-A-Cath. His next dialysis will be on Tuesday. 2. Anemia related to chronic renal failure and inflammatory state and iron deficiency. We held off on IV iron given his infectious issues. He received a total of 3 units of packed red blood cells on this admission and he is receiving Aranesp with dialysis. Goal hemoglobin is 10 to 11 and hemoglobin on the latest labs is 8.9. There is no need for another transfusion at this time. I would transfuse for a hemoglobin less than 8. 3. Hypertension, blood pressures are acceptably controlled and I am making no change to the regimen. 4. Gout. I have reduced the dose of Allopurinol to 100 mg once daily. 5. Diastolic congestive heart failure, chronic. Patient is compensated on exam and volume status is principally managed via hemodialysis. 6. Right Charcot foot with infected diabetic ulcer status post incision and drainage, managed by Podiatry, Wound Care and Primary Team. He is on renally dosed Levofloxacin at this time. 7. Morbid obesity, BMI 42 complicating his care. 8. Mild hypervolemic hyponatremia, it is related to his endstage kidney disease and improves with dialysis and fluid removal.
[2021-03-09 14:00] VITALS: BP 134/72
[2021-03-09] MEDS ORDERED: LevoFLOXacin 750 MG TABLET PO ONE (14:00)
[2021-03-09] MEDS: PERCOCET 5MG/325MG TAB PO PRN (16:43)
[2021-03-09 20:02] VITALS: BP 133/73
[2021-03-09] MEDS: ROSUVASTATIN 10 MG TAB (CRESTOR) PO SCH (21:23)
[2021-03-09 21:27] VITALS: BP 128/69
[2021-03-09] MEDS: FAMOTIDINE 20 MG TAB PO SCH (21:43)
[2021-03-10 04:00] VITALS: BP 130/74
[2021-03-10 06:35] LABS: BASO % 0.6 % (0.0-1.0); EOS # 0.2 10^3/uL (0.0-0.5); EOS % 2.3 % (0.0-3.0); HEMATOCRIT 29.2 % (42.0-52.0); HEMOGLOBIN 9.4 g/dl (13.5-17.5); LYMPH % 14.6 % (24.0-44.0); MEAN CORPUSCULAR HEMOGLOBIN 28.7 pg (27.0-33.0); MEAN CORPUSCULAR HGB CONC 32.2 g/dl (32.0-36.5); MONO # 0.9 10^3/uL (0.0-0.8); MONO % 12.9 % (2.0-8.0); NEUTROPHILS # 4.9 10^3/uL (1.5-8.5); NEUTROPHILS % 68.9 % (36.0-66.0); PLATELET COUNT, AUTOMATED 370 10^3/uL (150-450); RED BLOOD COUNT 3.28 10^6/uL (4.30-6.10)
[2021-03-10 07:00] LABS: CALCIUM LEVEL 9.4 MG/DL (8.5-10.1); CREATININE FOR GFR 4.57 MG/DL (0.70-1.30); GLOMERULAR FILTRATION RATE 14.4 (>56); POTASSIUM SERUM 4.4 MEQ/L (3.5-5.1)
[2021-03-10] MEDS: LEVEMIR (INSULIN DETEMIR) 1 UNITS/0.01ML SC SCH (09:00)
[2021-03-10] MEDS ORDERED: allopurinoL 100 MG TAB PO SCH (09:00)
[2021-03-10 09:05] VITALS: BP 120/58
[2021-03-10] MEDS: CARVedilol 6.25 MG TAB PO SCH (09:05)
[2021-03-10] MEDS: HumaLOG INSULIN (NovoLOG) PER UNIT SC SCH ×2 (09:05→13:12)
[2021-03-10] MEDS: amLODIPine 5 MG TAB PO SCH (09:06)
[2021-03-10] MEDS: **hydrALAZINE HCL** 25 MG TAB PO SCH (09:06)
[2021-03-10] MEDS ORDERED: LEVO500T3 PO (12:23)
[2021-03-10] MEDS ORDERED: PERCOCET PO ×2 (12:23→12:29)
[2021-03-10] MEDS ORDERED: ALLO10TA PO (12:23)
--- NOTE | 2021-03-10 14:48 | IPNPDOC ---
Text Note Date of Service The patient was seen on 03/10/21. NOTE SUBJECTIVE: Patient is sitting comfortably on the bedside dangling his legs on the side. He states no issues overnight or since then. He states he feels a lot better and is ready to be discharged. He denies any pain PHYSICAL EXAMINATION: OBJECTIVE:VITAL SIGNS: Temperature 99.3, pulse 79, respiratory rate 14, blood pressure is 134/72, 96% on room air. GENERAL: Awake, alert and oriented to person, place and time, answering questions appropriately. No cyanosis. NECK: No JVD or thyromegaly. LUNGS: Clear to auscultation. No wheezing, rales or rhonchi. HEART: S1 and S2, sinus rhythm. ABDOMEN: Obese, soft, nontender, nondistended. Positive bowel sounds. EXTREMITIES: Right foot is bandaged, chronic edema. AV fistula in the right arm is patent ASSESSMENT AND PLAN: Mr. Alonzo is a 55-year-old man with a past medical history of type 2 diabetes uncontrolled, hypertension, congestive heart failure, morbid obesity, gout, peripheral vascular disease and end-stage renal disease who is on maintenance hemodialysis scheduled for Tuesday's Wednesdays and Fridays. Patient ended up in the emergency department due to right foot pain and swelling because of osteomyelitis secondary to uncontrolled diabetes mellitus, is being treated in the hospital and seen by wound care. Nephrology was consulted to continue his hemodialysis regimen while inpatient. #1 ESRD on maintenance dialysis Mondays, Wednesdays and Fridays: -Patient received his dialysis yesterday. -Volume status and electrolytes are acceptable. No change to current HD prescription -Patient has a permacath and maturing AVF. #2 chronic anemia secondary to most likely end-stage kidney disease: -In hospital he received 3 units of packed red blood cells total. -Patient was also given darbepoetin IV Aranesp during dialysis for hgb goal 10-11. -This morning's hemoglobin was 9.4. #3 essential hypertension: -Blood pressure is stable. -Patient continues to be on Coreg and Norvasc with holding parameters. #4 diastolic congestive heart failure: -Patient's volume status is well compensated. -Continue fluid restrictions. -Continue to monitor I's and O's. #5 osteomyelitis of the right foot: -Patient was treated with antibiotics broad-spectrum. And then shifted to IV levofloxacin. -He will have to continue oral levofloxacin tablets on discharge as well. -Patient is following up with Dr. Robles in his office tomorrow. He already has an appointment set up. VS,[place], I+O VS, [place], I+O Laboratory Tests 03/10/21 05:39 Vital Signs Date Time Temp Pulse Resp B/P (MAP) Pulse Ox O2 Delivery O2 Flow Rate FiO2 03/10/21 09:05 78 120/58 03/10/21 04:00 98.6 20 96 Room Air I&O- Last 24 Hours up to 6 AM 03/10/21 06:00 Intake Total 1240 ml Output Total 4250 ml Balance -3010 ml GME ATTESTATION GME ATTESTATION My faculty preceptor for this patient encounter was physically present during the encounter and was fully available. All aspects of the patient interview, examination, medical decision making process, and medical care plan development were reviewed and approved by the faculty preceptor. The faculty preceptor is aware and concurs with the plan as stated in the body of this note and will attest to such by his/her cosignature. ATTENDING NOTE Pt seen and examined w/ resident. OK for discharge from nephrology point of view. Continue f/u outpatient dialysis. Janine Ross MD Mar 10, 2021 14:48 ROXANA FIELDS DO Mar 12, 2021 12:20
[2021-03-10] MEDS ORDERED: FERR325T81 PO (18:48)
--- NOTE | 2021-03-10 18:58 | DS.PDOC ---
Discharge Summary General Date of Admission Mar 06, 2021 at 15:55 Date of Discharge 03/10/21 Discharge Summary PROCEDURES PERFORMED DURING STAY: Right foot incision and drainage ADMITTING DIAGNOSES: Right Charcot foot with infected diabetic ulcer Right foot osteomyelitis Endstage renal disease Type 2 diabetes Hypertension Morbid obesity Compensated diastolic congestive heart failure Gout, chronic Anemia of chronic renal failure Secondary hyperparathyroidism Hyponatremia DISCHARGE DIAGNOSES: Right Charcot foot with infected diabetic ulcer Right foot osteomyelitis Endstage renal disease Type 2 diabetes Hypertension Morbid obesity Compensated diastolic congestive heart failure Gout, chronic Anemia of chronic renal failure Secondary hyperparathyroidism Hyponatremia COMPLICATIONS/CHIEF COMPLAINT: Osteomyelitis Of Right Foot. HISTORY OF PRESENT ILLNESS: This is a 55-year-old male with a history of endstage renal disease on maintenance dialysis Tuesday, Tuesday and Tuesday, diabetes, hypertension, obesity, with prior amputations and follows with Dr. Robles for chronic diabetic foot ulcers, receiving hyperbaric oxygen, was seen at Dr. Robles's office where he was found to have acute onset of edema and multiple pockets of fluid in the right foot. Patient was sent to the Emergency Room. MRI shows possible osteomyelitis and soft tissue loculations, rule out abscess. Dr. Schulte was consulted and the patient underwent debridement. HOSPITAL COURSE: During the hospital stay the following issue addressed 1. Right Charcot foot with infected diabetic ulcer and fluid collection status post incision and drainage with no signs of abscess on exploration by Dr. Schulte. MRI of the right foot shows septic arthritis with multifocal osteomyelitis with acute on chronic subacute fracture of the talus extending to the tibiotalar joint. Dr. Schulte has been consulted for management of patient's fluid collection upon incision. There are no signs of abscess. Patient was on IV Vancomycin. Wound cultures grew out E. coli, currently transitioned to renally doses Levaquin 750 on the first dose and 500 q. 48 hours to be managed by pharmacy for renal dosing. Per Dr. Schulte, there are no indications for repeat debridement. He recommends follow-up with Dr. Robles as an [facility] who will decide continued hyperbaric oxygen if needed but patient is to complete his antibiotics. Wound culture positive for Enterococcus faecalis, Staphylococcus intermedius, Enterobacter species. Dr. Wall recommended 4 weeks antibiotic therapy with Levaquin DISCHARGE MEDICATIONS: Please see below. ALLERGIES: Please see below. PHYSICAL EXAMINATION ON DISCHARGE: VITAL SIGNS: Temperature 99.3, pulse 79, respiratory rate 14, blood pressure is 134/72, 96% on room air. GENERAL: Awake, alert and oriented to person, place and time, answering questions appropriately. No cyanosis. Able to speak in full sentences. NECK: No JVD or thyromegaly. LUNGS: Clear to auscultation. No wheezing, rales or rhonchi. HEART: S1 and S2, sinus rhythm. ABDOMEN: Obese, soft, nontender, nondistended. Positive bowel sounds. EXTREMITIES: Right foot is bandaged, chronic edema. AV fistula in the right arm. LABORATORY DATA: Please see below. IMAGING: PROCEDURE INFORMATION: Exam: MR Right Lower Extremity Other Than Joint Without Contrast; Foot Exam date and time: 03/06/2021 4:40 PM Age: 55 years old Clinical indication: Cellulitis and edema and swelling, leg or foot; Yes, it is localized; Right; Prior surgery; Surgery date: 1-6 months; Surgery type: Removed piece of bone 4 mos ago; Additional info: Right foot osteo 4th digit? Cellulitis/abscess TECHNIQUE: Imaging protocol: MR of the Right lower extremity without contrast. Exam focused on the foot. COMPARISON: 1. CT FOOT WITH CONTRAST 03/06/2021 2:35 PM 2. MRI FOOT WITHOUT CONTRAST RIGHT 12/02/2020 9:11:15 PM FINDINGS: The examination is somewhat limited due to the lack of intravenous contrast. The patient is status post resection of the 5th metatarsal remnant, as well as the base and shaft of the 4th metatarsal. There is an acute to subacute fracture of the talus, extending to the tibiotalar joint. There is extensive deformity, disorganization and fragmentation about the midfoot and hindfoot, which has progressed since the prior study. There are diffuse associated periarticular erosive/destructive changes with pronounced associated bone marrow edema and a large amount of intra-articular fluid and synovitis. There is diffuse involvement of the midfoot and hindfoot. Bone marrow signal in the metatarsals and phalanges is grossly normal. There is severe, diffuse soft tissue swelling and subcutaneous edema with overlying skin thickening. There is a large, deep soft tissue ulceration along the lateral aspect of the 5th metatarsal with a large amount of complex, loculated subjacent fluid, which is confluent with the intra-articular fluid. There is no soft tissue mass. IMPRESSION: 1. Limited noncontrast examination. 2. Worsening chronic Charcot neuropathy with evidence of superimposed septic arthritis at multifocal osteomyelitis, as described above. 3. Acute to subacute fracture of the talus, extending to the tibiotalar joint. 4. Additional findings, as above. Electronically signed by: Lang Mendez On 03/06/2021 21:38:58 PM DD: LANG MENDEZ MD 03/06/21 1640 DT: THOM 03/06/212137 DS: JOE 03/06/212137 PROGNOSIS: Fair ACTIVITY: [As tolerated]. DIET: Diabetes DISPOSITION: 01 Home, Self-Care. DISCHARGE INSTRUCTIONS: Follow-up with full service supervisor and wound care DISCHARGE CONDITION: [Stable]. TIME SPENT ON DISCHARGE: 40 minutes. Vital Signs/I&Os Vital Signs Date Time Temp Pulse Resp B/P (MAP) Pulse Ox O2 Delivery O2 Flow Rate FiO2 03/10/21 09:05 78 120/58 03/10/21 04:00 98.6 20 96 Room Air I&O- Last 24 Hours up to 6 AM 03/10/21 06:00 Intake Total 1240 ml Output Total 4250 ml Balance -3010 ml Laboratory Data Labs 24H Laboratory Tests 2 03/09/21 20:04: Bedside Glucose (Misc Panel) 163H 03/10/21 05:39: Immature Granulocyte % (Auto) 0.7, Neutrophils (%) (Auto) 68.9H, Lymphocytes (%) (Auto) 14.6L, Monocytes (%) (Auto) 12.9H, Eosinophils (%) (Auto) 2.3, Basophils (%) (Auto) 0.6, Neutrophils # (Auto) 4.9, Lymphocytes # (Auto) 1.0L, Monocytes # (Auto) 0.9H, Eosinophils # (Auto) 0.2, Basophils # (Auto) 0.0, Nucleated Red Blood Cells % (auto) 0.0, Anion Gap 10, Glomerular Filtration Rate 14.4L, Calcium Level 9.4 03/10/21 12:01: Bedside Glucose (Misc Panel) 222H CBC/BMP Laboratory Tests 03/10/21 05:39 FSBS Laboratory Tests Test 03/09/21 20:04 03/10/21 12:01 Range/Units Bedside Glucose (Misc Panel) 163 222 70-105 MG/DL Microbiology Microbiology 03/07/21 Gram Stain - Final, Complete 03/07/21 Abscess Culture - Final, Complete Enterobacter Cloacae Complex Staphylococcus Intermedius Enterococcus Faecalis 03/07/21 Anaerobic Culture - Final, Complete Discharge Medications Scheduled Allopurinol (Allopurinol) 100 Mg Tablet, 100 MG PO DAILY Amlodipine Besylate (Amlodipine Besylate) 5 Mg Tablet, 5 MG PO DAILY, (Reported) Carvedilol (Carvedilol) 6.25 Mg Tablet, 6.25 MG PO BID, (Reported) Dulaglutide (Trulicity) 1.5 Mg/0.5 Ml Pen.injctr, 1.5 MG SC QWEEK, (Reported) TAKES ON FRIDAYS Ergocalciferol (Vitamin D2) (Drisdol) 1,250 Mcg Capsule, 1,250 MCG PO QMONTH, (Reported) 1st OF THE MONTH Famotidine (Famotidine) 40 Mg Tablet, 40 MG PO QHS, (Reported) Ferrous Sulfate (Iron) 325 Mg Tablet, 1 TAB PO BID Hydralazine HCl (Hydralazine HCl) 25 Mg Tablet, 25 MG PO TID, (Reported) Insulin Aspart (Novolog Flexpen) 100 Unit/1 Ml Insuln.pen, 1 DOSE SC AC, (Reported) PER SLIDING SCALE Insulin Glargine,Hum.rec.anlog (Toujeo Solostar) 300 Unit/1 Ml Insuln.pen, 60 UNIT SC QAM, (Reported) Insulin Glargine,Hum.rec.anlog (Toujeo Solostar) 300 Unit/1 Ml Insuln.pen, 40 UNIT SC QHS, (Reported) Levofloxacin (Levofloxacin) 500 Mg Tablet, 500 MG PO Q48H Rosuvastatin Calcium (Rosuvastatin Calcium) 10 Mg Tablet, 10 MG PO QHS, (Reported) Spironolactone (Spironolactone) 25 Mg Tablet, 25 MG PO BID, (Reported) Scheduled PRN Oxycodone HCl (Oxycodone HCl) 10 Mg Tablet, 10 MG PO QID PRN for PAIN, (Reported) Oxycodone/Acetaminophen (Oxycodone-Acetaminophen 5-325) 1 Each Tablet, 1 TAB PO Q4HP PRN for MODERATE PAIN (PS 5-7) Allergies Coded Allergies: No Known Allergies (Unverified , 09/30/18) TWILA WARREN DO Mar 10, 2021 18:58
[2021-03-11] MEDS ORDERED: LevoFLOXacin IV 500 MG in IV 1 EA IV SCH (09:00)
[2021-03-11] MEDS ORDERED: LevoFLOXacin 500 MG TABLET PO SCH (21:00)
== END 2021-03-10 14:16 | disposition home or self-care (01) | DRG 638 ==
LOC: M ED 11:42 → M ED INP 15:55 → M MS5PR 18:29
PROVIDERS: ADMIT General Practice; ATTEND Internal Medicine
PROC: 30233N1 Transfusion of Nonautologous Red Blood Cells into Peripheral Vein, Percutaneous Approach (ICD-10-PCS; 2021-03-06)
PROC: 0Y9M0ZZ Drainage of Right Foot, Open Approach (ICD-10-PCS; 2021-03-07)
PROC: 5A1D70Z Performance of Urinary Filtration, Intermittent, Less than 6 Hours Per Day (ICD-10-PCS; principal; 2021-03-07 08:00)
DX: E11.621 Type 2 diabetes mellitus with foot ulcer (principal); I50.32 Chronic diastolic (congestive) heart failure; I13.2 Hypertensive heart and chronic kidney disease with heart failure and with stage 5 chronic kidney disease, or end stage renal disease; Z68.41 Body mass index [BMI] 40.0-44.9, adult; L02.611 Cutaneous abscess of right foot; E87.1 Hypo-osmolality and hyponatremia; M86.9 Osteomyelitis, unspecified; M00.9 Pyogenic arthritis, unspecified; N18.6 End stage renal disease; E11.69 Type 2 diabetes mellitus with other specified complication; E11.51 Type 2 diabetes mellitus with diabetic peripheral angiopathy without gangrene; N25.81 Secondary hyperparathyroidism of renal origin; E66.01 Morbid (severe) obesity due to excess calories; E11.22 Type 2 diabetes mellitus with diabetic chronic kidney disease; E11.42 Type 2 diabetes mellitus with diabetic polyneuropathy; D50.9 Iron deficiency anemia, unspecified; B96.20 Unspecified Escherichia coli [E. coli] as the cause of diseases classified elsewhere; M10.9 Gout, unspecified; L97.523 Non-pressure chronic ulcer of other part of left foot with necrosis of muscle; L97.513 Non-pressure chronic ulcer of other part of right foot with necrosis of muscle; D63.1 Anemia in chronic kidney disease; E11.610 Type 2 diabetes mellitus with diabetic neuropathic arthropathy; Z79.4 Long term (current) use of insulin; Z79.899 Other long term (current) drug therapy; Z99.2 Dependence on renal dialysis; Z20.822 Contact with and (suspected) exposure to COVID-19; Z87.442 Personal history of urinary calculi

== ENCOUNTER → 2021-03-06 | Outpatient (REF) | payer MEDICARE ==
[~2021-03-06] MED LIST changes: +ALLO10TA PO; +DOK1CAP4 PO; -DOK1CAP7 PO; +FERR325T81 PO; +LEVO500T3 PO
== END ==
LOC: M SFHCLERA 11:16
PROVIDERS: ATTEND Physician Assistant
DX: E11.621 Type 2 diabetes mellitus with foot ulcer (principal); L02.619 Cutaneous abscess of unspecified foot

== ENCOUNTER → 2021-03-27 | Outpatient (CLI) | payer MEDICARE ==
[~2021-03-27] MED LIST changes: +ALLO10TA PO; +FERR325T81 PO; +LEVO500T3 PO
--- NOTE | 2021-03-27 12:49 | REP ---
INDICATION: FOOT PAIN RT, DVT/ US 1ST, LABS 2ND. COMPARISON: December 01, 2020.. TECHNIQUE: Right {lower extremity duplex venous scanning is performed from the groin to the ankle level. FINDINGS: The deep veins are anechoic and fully compressible from the groin to the popliteal fossa in the right lower extremity. Color flow imaging is homogeneous. Spectral Doppler interrogation demonstrates intact respiratory variation in flow and normal manual augmentation of flow. There is no evidence of deep vein thrombosis above the knee. Calf veins could not be seen due to edema. IMPRESSION: No evidence of DVT in the right lower extremity femoropopliteal veins. Calf veins could not be visualized due to edema. <Electronically signed by Judson Owen > 03/27/21 [id number]
[2021-03-27 13:54] LABS: APPEARANCE, URINE CLEAR (CLEAR); BACTERIA, URINE AUTO NEGATIVE (NEGATIVE); BILIRUBIN, URINE AUTO NEGATIVE (NEGATIVE); BLOOD, URINE BLOOD NEGATIVE (NEGATIVE); COLOR, URINE YELLOW (YELLOW); GLUCOSE, URINE (UA) AUTO NEGATIVE (NEGATIVE); KETONE, URINE AUTO NEGATIVE (NEGATIVE); LEUKOCYTE ESTERASE, URINE AUTO NEGATIVE (NEGATIVE); NITRITE, URINE AUTO NEGATIVE (NEGATIVE); PROTEIN, URINE AUTO 3+ mg/dL (NEGATIVE); RBC, URINE AUTO 0 /HPF (0-3); SPECIFIC GRAVITY URINE AUTO 1.012 (1.002-1.035); SQUAMOUS EPITHELIAL CELL UR AU 2 /HPF (0-6); UROBILINOGEN, URINE AUTO 0.2 mg/dL (0.0-2.0); WBC, URINE AUTO 0 /HPF (0-3)
[2021-03-27 13:56] LABS: BASO % 0.3 % (0.0-1.0); EOS # 0.3 10^3/uL (0.0-0.5); EOS % 2.8 % (0.0-3.0); HEMATOCRIT 32.5 % (42.0-52.0); HEMOGLOBIN 9.9 g/dl (13.5-17.5); LYMPH # 1.3 10^3/uL (1.5-5.0); MEAN CORPUSCULAR HEMOGLOBIN 27.4 pg (27.0-33.0); MEAN CORPUSCULAR HGB CONC 30.5 g/dl (32.0-36.5); MONO % 10.8 % (2.0-8.0); NEUTROPHILS # 6.7 10^3/uL (1.5-8.5); NEUTROPHILS % 71.5 % (36.0-66.0); PLATELET COUNT, AUTOMATED 432 10^3/uL (150-450); RED BLOOD COUNT 3.61 10^6/uL (4.30-6.10); WHITE BLOOD COUNT 9.3 10^3/uL (4.0-10.0)
[2021-03-27 14:25] LABS: ERYTHROCYTE SEDIMENTATION RATE 126 mm/hr (0-20)
[2021-03-27 14:40] LABS: FOLATE > 24.0 NG/ML (>5.4); VITAMIN B12 LEVEL 679 PG/ML (247-911)
== END ==
LOC: M RAD 12:04
PROVIDERS: ATTEND Student in an Organized Health Care Education/Training Program
DX: M79.671 Pain in right foot (principal); D64.9 Anemia, unspecified; E11.621 Type 2 diabetes mellitus with foot ulcer; L97.513 Non-pressure chronic ulcer of other part of right foot with necrosis of muscle
CPT/HCPCS: 36415; 81001; 82607; 82746; 85025; 85652; 93971; G0277; G0463

== ENCOUNTER → 2021-03-30 | Outpatient (REF) | payer MEDICARE | LOC: M SFHCPLAZ 11:57 | PROVIDERS: ATTEND Student in an Organized Health Care Education/Training Program | DX: D64.9 Anemia, unspecified (principal); E11.621 Type 2 diabetes mellitus with foot ulcer; L97.513 Non-pressure chronic ulcer of other part of right foot with necrosis of muscle | CPT/HCPCS: 82270; G0277 ==

== ENCOUNTER → 2021-08-06 | Outpatient (CLI) | payer MEDICARE, MEDICAID ==
[~2021-08-06] MED LIST changes: +ISOS10TA3 PO; -ISOS1TAB13 PO; -LEVO500T3 PO; +LEVO500T4 PO; +POTA-151 PO; -POTA20TA6 PO
== END ==
LOC: M LABSMTC 09:05
PROVIDERS: ATTEND Surgery Vascular Surgery
DX: Z11.52 Encounter for screening for COVID-19 (principal)

== ENCOUNTER → 2021-08-10 | Outpatient (REF) | LOC: M LABSMTC 09:20 | PROVIDERS: ATTEND Pediatrics | DX: Z11.52 Encounter for screening for COVID-19 (principal) ==

== ENCOUNTER → 2021-09-15 | Outpatient (POV) | payer MEDICARE, MEDICAID ==
[~2021-09-15] VITALS: Ht 177.8 cm; Wt 129.5 kg
[2021-09-15 13:30] VITALS: BP 158/92
== END ==
LOC: M IRPOV 13:13
PROVIDERS: ATTEND Radiology Diagnostic Radiology
DX: N18.6 End stage renal disease (principal); Z45.2 Encounter for adjustment and management of vascular access device; Z79.4 Long term (current) use of insulin; Z79.899 Other long term (current) drug therapy; Z99.2 Dependence on renal dialysis

== ENCOUNTER → 2021-10-01 | Outpatient (CLI) | payer MEDICARE, MEDICAID ==
[~2021-10-01] MED LIST changes: +LIDOCAINE 1% MDV 20ML VIAL As Ordered ONE
[2021-10-01 11:36] VITALS: BP 159/99
== END ==
LOC: M IRPRO 10:54
PROVIDERS: ATTEND Radiology Diagnostic Radiology
DX: N18.6 End stage renal disease (principal); Z45.2 Encounter for adjustment and management of vascular access device

== ENCOUNTER → 2021-10-03 | Outpatient (CLI) | payer MEDICARE, MEDICAID ==
[~2021-10-03] MED LIST changes: -LIDOCAINE 1% MDV 20ML VIAL As Ordered ONE
== END ==
LOC: M LABSMTC 09:11
PROVIDERS: ATTEND Anesthesiology
DX: Z01.812 Encounter for preprocedural laboratory examination (principal); Z20.822 Contact with and (suspected) exposure to COVID-19

== ENCOUNTER 2021-10-08 08:06 | Day surgery (SDC) | payer MEDICARE, MEDICAID ==
[~2021-10-08] VITALS: Ht 177.8 cm; Wt 133.4 kg
[~2021-10-08 08:06] MED LIST changes: +NS 1,000 ML IV ONE
[2021-10-08] MEDS ORDERED: propofoL 200 MG/20 ML VIAL As Ordered ONE (09:42)
[2021-10-08] MEDS ORDERED: LIDOCAINE 2% 100MG/5ML SDV (FOR ANES.) As Ordered ONE (09:42)
[2021-10-08 10:55] VITALS: BP 159/83
== END 2021-10-08 11:05 | disposition home or self-care (01) ==
LOC: M OPP 08:06
PROVIDERS: ATTEND Surgery
DX: Z12.11 Encounter for screening for malignant neoplasm of colon (principal); N18.6 End stage renal disease; Z99.2 Dependence on renal dialysis; G47.33 Obstructive sleep apnea (adult) (pediatric); Z79.4 Long term (current) use of insulin; Z79.899 Other long term (current) drug therapy

== ENCOUNTER → 2021-10-22 | Outpatient (CLI) | payer MEDICARE, MEDICAID ==
[~2021-10-22] MED LIST changes: -NS 1,000 ML IV ONE
== END ==
LOC: M LABSMTC 09:09
PROVIDERS: ATTEND Anesthesiology
DX: Z01.818 Encounter for other preprocedural examination (principal); Z11.52 Encounter for screening for COVID-19

== ENCOUNTER 2021-10-27 06:03 | Day surgery (SDC) | payer MEDICARE, MEDICAID ==
[~2021-10-27] VITALS: Ht 177.8 cm; Wt 131.5 kg
[~2021-10-27 06:03] MED LIST changes: +NS 1,000 ML IV ONE
[2021-10-27] MEDS ORDERED: LIDOCAINE 1% SDV 30ML VIAL As Ordered ONE (07:07)
[2021-10-27] MEDS ORDERED: HEPARIN SOD (PORCINE) 5000UNITS/ML 1ML VIAL/SYRINGE As Ordered ONE (07:08)
[2021-10-27] MEDS ORDERED: propofoL 200 MG/20 ML VIAL As Ordered ONE (07:18)
[2021-10-27] MEDS ORDERED: ceFAZolin 1GM VIAL (J0690 PER 500MG) As Ordered ONE (07:18)
[2021-10-27] MEDS ORDERED: fentaNYL 100 MCG/2 ML INJECTION As Ordered ONE (07:18)
[2021-10-27] MEDS ORDERED: MIDAZOLAM INJ 2MG/2ML VIAL (J2250 PER 1MG) As Ordered ONE (07:18)
[2021-10-27] MEDS ORDERED: LIDOCAINE 2% 100MG/5ML SDV (FOR ANES.) As Ordered ONE (07:19)
[2021-10-27] MEDS ORDERED: ROCURONIUM BROMIDE 50 MG/5 ML VIAL As Ordered ONE (07:19)
[2021-10-27] MEDS ORDERED: ceFAZolin SOD 2 GM in IV 1 EA IV ONE (07:20)
[2021-10-27] MEDS ORDERED: dexameTHASONE 4 MG/ML 1ML VIAL (J1100 PER 1MG) As Ordered ONE (07:53)
[2021-10-27] MEDS ORDERED: ONDANSETRON 4MG/2ML VIAL As Ordered ONE (07:57)
[2021-10-27] MEDS ORDERED: ceFAZolin SOD 1 GM in D5W MINI-BAG PLUS 50 ML IV ONE (08:00)
[2021-10-27] MEDS ORDERED: ACETAMINOPHEN 1000MG 100ML IV BTL (OFIRMEV) (J0131 PER 10MG) As Ordered ONE (08:07)
[2021-10-27] MEDS ORDERED: fentaNYL 100 MCG/2 ML INJECTION IV PRN (09:50)
[2021-10-27] MEDS ORDERED: LR 1,000 ML IV SCH (09:50)
[2021-10-27] MEDS ORDERED: ONDANSETRON 4MG/2ML VIAL IV PRN (09:50)
[2021-10-27] MEDS ORDERED: PERCOCET 5MG/325MG TAB PO PRN (09:50)
[2021-10-27] MEDS ORDERED: ACETAMINOPHEN TAB 650MG DOSE (2X325MG) PO PRN (09:55)
[2021-10-27] MEDS ORDERED: NORCO, ANEXSIA 5/325MG TABLET (HYDROcodone/ACETAMINOPHEN) PO PRN (09:55)
[2021-10-27 10:18] VITALS: BP 144/67
== END 2021-10-27 11:15 | disposition home or self-care (01) ==
LOC: M SDC 06:03
PROVIDERS: ATTEND Surgery
DX: N18.6 End stage renal disease (principal); E11.22 Type 2 diabetes mellitus with diabetic chronic kidney disease; I13.2 Hypertensive heart and chronic kidney disease with heart failure and with stage 5 chronic kidney disease, or end stage renal disease; I50.32 Chronic diastolic (congestive) heart failure; E78.5 Hyperlipidemia, unspecified; D63.1 Anemia in chronic kidney disease; E11.40 Type 2 diabetes mellitus with diabetic neuropathy, unspecified; E11.618 Type 2 diabetes mellitus with other diabetic arthropathy; E55.9 Vitamin D deficiency, unspecified; M10.9 Gout, unspecified; Z79.899 Other long term (current) drug therapy; Z79.4 Long term (current) use of insulin; Z79.84 Long term (current) use of oral hypoglycemic drugs
CPT/HCPCS: 36415; 49421; 84132; J0131; J0690; J1100; J1644; J2250; J2405; J3010

== ENCOUNTER → 2021-11-06 | Outpatient (CLI) | payer MEDICARE, MEDICAID ==
[~2021-11-06] MED LIST changes: -NS 1,000 ML IV ONE
== END ==
LOC: M PLAIMG 10:30 → M RAD 18:00
PROVIDERS: ATTEND Internal Medicine Nephrology
DX: T85.621A Displacement of intraperitoneal dialysis catheter, initial encounter (principal)

== ENCOUNTER → 2021-11-24 | Outpatient (REF) | payer MEDICARE | LOC: M SFHCPLAZ 15:39 | PROVIDERS: ATTEND Family Medicine | DX: R26.89 Other abnormalities of gait and mobility (principal); Z68.41 Body mass index [BMI] 40.0-44.9, adult ==

== ENCOUNTER → 2021-11-26 | Outpatient (CLI) | payer MEDICARE ==
[2021-11-26 10:51] LABS: ALBUMIN 3.5 GM/DL (3.2-5.2); BILIRUBIN,DIRECT 0.1 MG/DL (0.0-0.2); BILIRUBIN,TOTAL 0.5 MG/DL (0.2-1.0); TOTAL PROTEIN 7.8 GM/DL (6.4-8.2)
== END ==
LOC: M PLALAB 08:14
PROVIDERS: ATTEND Student in an Organized Health Care Education/Training Program
DX: Z68.41 Body mass index [BMI] 40.0-44.9, adult (principal)

== ENCOUNTER → 2021-12-08 | Day surgery (SDC) | payer MEDICARE ==
[~2021-12-08] VITALS: Ht 177.8 cm; Wt 135.2 kg
[~2021-12-08] MED LIST changes: +INSULIN LISPRO (NovoLOG) PER UNIT SC PRN; +NS 1,000 ML IV SCH
[2021-12-08 15:56] LABS: BASO % 0.2 % (0.0-1.0); EOS # 0.2 10^3/uL (0.0-0.5); EOS % 1.8 % (0.0-3.0); HEMATOCRIT 29.1 % (42.0-52.0); HEMOGLOBIN 9.6 g/dl (13.5-17.5); LYMPH # 1.5 10^3/uL (1.5-5.0); MEAN CORPUSCULAR HEMOGLOBIN 33.1 pg (27.0-33.0); MEAN CORPUSCULAR VOLUME 100.3 fl (80.0-96.0); MONO # 0.6 10^3/uL (0.0-0.8); NEUTROPHILS # 7.3 10^3/uL (1.5-8.5); NEUTROPHILS % 75.6 % (36.0-66.0); PLATELET COUNT, AUTOMATED 239 10^3/uL (150-450); WHITE BLOOD COUNT 9.6 10^3/uL (4.0-10.0)
[2021-12-08 15:59] VITALS: BP 130/76
[2021-12-08 16:32] LABS: CALCIUM LEVEL 8.9 MG/DL (8.5-10.1); CREATININE FOR GFR 7.37 MG/DL (0.70-1.30); GLOMERULAR FILTRATION RATE 8.2 (>56); POTASSIUM SERUM 3.6 MEQ/L (3.5-5.1)
== END | disposition home or self-care (01) ==
LOC: M SDC 15:19
PROVIDERS: ATTEND Surgery
DX: Z53.29 Procedure and treatment not carried out because of patient's decision for other reasons (principal)

== ENCOUNTER → 2021-12-20 | Outpatient (CLI) | payer MEDICARE ==
[~2021-12-20] MED LIST changes: -INSULIN LISPRO (NovoLOG) PER UNIT SC PRN; -NS 1,000 ML IV SCH
== END ==
LOC: M LABSMTC 11:47
PROVIDERS: ATTEND Anesthesiology
DX: Z01.818 Encounter for other preprocedural examination (principal); Z11.52 Encounter for screening for COVID-19

== ENCOUNTER 2021-12-24 10:18 | Day surgery (SDC) | payer MEDICARE ==
[~2021-12-24] VITALS: Ht 177.8 cm; Wt 132.9 kg
[~2021-12-24 10:18] MED LIST changes: -SEVE800T3 PO
[2021-12-24] MEDS ORDERED: ONDANSETRON 4MG/2ML VIAL IV PRN (10:30)
[2021-12-24] MEDS ORDERED: NS 1,000 ML IV SCH (10:30)
[2021-12-24] MEDS ORDERED: INSULIN LISPRO (NovoLOG) PER UNIT SC PRN (10:30)
[2021-12-24] MEDS ORDERED: fentaNYL 100 MCG/2 ML INJECTION IV PRN (10:30)
[2021-12-24] MEDS ORDERED: oxyCODONE 5MG TAB PO PRN (10:30)
[2021-12-24] MEDS ORDERED: FISH1000 PO (11:07)
[2021-12-24] MEDS ORDERED: SEVE800T3 PO (11:07)
[2021-12-24] MEDS ORDERED: D5W/0.45% SODIUM CHLORIDE 1,000 ML IV SCH (11:55)
[2021-12-24] MEDS ORDERED: LIDOCAINE 1% SDV 30ML VIAL As Ordered ONE (15:00)
[2021-12-24] MEDS ORDERED: ceFAZolin SOD 1 GM in D5W MINI-BAG PLUS 50 ML IV ONE (15:25)
[2021-12-24] MEDS ORDERED: ceFAZolin SOD 2 GM in IV 1 EA IV ONE (15:25)
[2021-12-24] MEDS ORDERED: ETOMIDATE INJ 20MG/10ML VIAL As Ordered ONE ×2 (15:41→16:00)
[2021-12-24] MEDS ORDERED: fentaNYL 100 MCG/2 ML INJECTION As Ordered ONE (15:41)
[2021-12-24] MEDS ORDERED: propofoL 200 MG/20 ML VIAL As Ordered ONE ×3 (15:41→16:23)
[2021-12-24] MEDS ORDERED: MIDAZOLAM INJ 2MG/2ML VIAL (J2250 PER 1MG) As Ordered ONE (15:41)
[2021-12-24] MEDS ORDERED: GLYCOPYRROLATE INJ 0.2 MG/ML 2 ML VIAL As Ordered ONE (16:05)
[2021-12-24] MEDS ORDERED: LABETALOL 100MG/20ML VIAL As Ordered ONE (16:28)
[2021-12-24 17:40] VITALS: BP 152/68
== END 2021-12-24 17:54 | disposition home or self-care (01) ==
LOC: M SDC 10:18
PROVIDERS: ATTEND Surgery
DX: T85.71XA Infection and inflammatory reaction due to peritoneal dialysis catheter, initial encounter (principal); Y73.2 Prosthetic and other implants, materials and accessory gastroenterology and urology devices associated with adverse incidents; N18.6 End stage renal disease; Z99.2 Dependence on renal dialysis; I12.0 Hypertensive chronic kidney disease with stage 5 chronic kidney disease or end stage renal disease; E11.9 Type 2 diabetes mellitus without complications; E78.00 Pure hypercholesterolemia, unspecified; G47.33 Obstructive sleep apnea (adult) (pediatric); R06.83 Snoring; M10.9 Gout, unspecified; Z79.899 Other long term (current) drug therapy; Z79.891 Long term (current) use of opiate analgesic; Z79.84 Long term (current) use of oral hypoglycemic drugs; Z79.4 Long term (current) use of insulin; Z20.822 Contact with and (suspected) exposure to COVID-19
CPT/HCPCS: 36415; 49422; 84132; 87426; J0690; J2250; J3010

== ENCOUNTER → 2021-12-24 | Outpatient (CLI) | payer MEDICARE ==
[~2021-12-24] MED LIST changes: +SEVE800T3 PO
== END ==
LOC: M LABSMTC 09:16
PROVIDERS: ATTEND Surgery Vascular Surgery
DX: Z11.52 Encounter for screening for COVID-19 (principal)

== ENCOUNTER → 2022-03-16 | Outpatient (REF) | payer OTHER ==
[~2022-03-16] MED LIST changes: +LEVO1TAB39 PO; -LEVO500T4 PO; +SEVE800T3 PO
== END ==
LOC: M RAD 10:13 → EDSTATUS 11:00
PROVIDERS: ATTEND Transplant Surgery
DX: Z01.818 Encounter for other preprocedural examination (principal)

== ENCOUNTER → 2022-04-26 | Outpatient (CLI) | payer MEDICARE, MEDICAID ==
[~2022-04-26] MED LIST changes: +ISOVUE-370 76% 100ML VIAL As Ordered ONE
== END ==
LOC: M RAD 07:36
PROVIDERS: ATTEND Physician Assistant
DX: D41.01 Neoplasm of uncertain behavior of right kidney (principal)
CPT/HCPCS: 74160; Q9967

== ENCOUNTER → 2022-09-10 | Outpatient (CLI) | payer MEDICARE, MEDICAID ==
[~2022-09-10] MED LIST changes: -ISOVUE-370 76% 100ML VIAL As Ordered ONE
[2022-09-10 13:57] LABS: HEMOGLOBIN A1c 5.1 % (4.0-6.0)
[2022-09-10 14:09] LABS: CREATININE, URINE 101.2 MG/DL
[2022-09-10 14:23] LABS: MAU/CREAT RATIO 929.8 MCG/MG (0.0-30.0)
== END ==
LOC: M PLALAB 09:23
PROVIDERS: ATTEND Student in an Organized Health Care Education/Training Program
DX: E11.22 Type 2 diabetes mellitus with diabetic chronic kidney disease (principal)

== ENCOUNTER → 2022-10-05 | Outpatient (CLI) | payer MEDICARE, MEDICAID ==
[~2022-10-05] MED LIST changes: +ISOVUE-370 76% 100ML VIAL As Ordered ONE
== END ==
LOC: M RAD 14:58
PROVIDERS: ATTEND Physician Assistant
DX: N28.1 Cyst of kidney, acquired (principal)
CPT/HCPCS: 74160; Q9967

== ENCOUNTER → 2022-11-11 | Outpatient (CLI) | payer MEDICARE, MEDICAID ==
[~2022-11-11] MED LIST changes: +ENAL1TAB52 PO; -ENAL20TA11 PO; -ISOVUE-370 76% 100ML VIAL As Ordered ONE
== END ==
LOC: M WHC 07:58
PROVIDERS: ATTEND Nurse Practitioner Family
DX: M79.604 Pain in right leg (principal)

== ENCOUNTER → 2022-12-21 | Outpatient (CLI) | payer MEDICARE, MEDICAID ==
[~2022-12-21] VITALS: Ht 177.8 cm; Wt 129.5 kg
[~2022-12-21] MED LIST changes: +ISOVUE-300 61% 100ML VIAL As Ordered ONE; +LIDOCAINE 1% MDV 20ML VIAL As Ordered ONE; +MIDAZOLAM INJ 2MG/2ML VIAL As Ordered ONE; +ceFAZolin 2 GM/D5W 50 ML IV BAG As Ordered ONE; +ceFAZolin SOD 2 GM in IV 1 EA IV ONE; +fentaNYL 100 MCG/2 ML INJECTION As Ordered ONE
[2022-12-21 07:00] VITALS: TEMP 97.1
[2022-12-21 07:40] LABS: HEMATOCRIT 30.7 % (42.0-52.0); HEMOGLOBIN 9.8 g/dl (13.5-17.5); MEAN CORPUSCULAR HEMOGLOBIN 31.5 pg (27.0-33.0); MEAN CORPUSCULAR HGB CONC 31.9 g/dl (32.0-36.5); MEAN CORPUSCULAR VOLUME 98.7 fl (80.0-96.0); PLATELET COUNT, AUTOMATED 307 10^3/uL (150-450); RED BLOOD COUNT 3.11 10^6/uL (4.30-6.10); WHITE BLOOD COUNT 6.9 10^3/uL (4.0-10.0)
[2022-12-21 07:59] LABS: CALCIUM LEVEL 9.7 MG/DL (8.5-10.1); CREATININE FOR GFR 6.25 MG/DL (0.70-1.30); GLOMERULAR FILTRATION RATE 9.9 (>56); POTASSIUM SERUM 3.6 MMOL/L (3.5-5.1)
[2022-12-21 08:17] LABS: INR 0.94; PARTIAL THROMBOPLASTIN TIME 20.8 SECONDS (24.8-34.2); PROTHROMBIN TIME 12.8 SECONDS (12.5-14.5)
[2022-12-21 09:48] VITALS: BP 159/64; O2SAT 100
== END ==
LOC: M IRPRO 06:08
PROVIDERS: ATTEND Surgery Vascular Surgery
DX: N18.6 End stage renal disease (principal); Z99.2 Dependence on renal dialysis
CPT/HCPCS: 36902; 80048; 85027; 85610; 85730; 86850; 86900; 86901; 99152; 99153; C1725; C1769; C1894; J0690; J2250; J3010; Q9967

== ENCOUNTER → 2023-04-06 | Outpatient (REF) | payer MEDICARE, MEDICAID ==
[~2023-04-06] MED LIST changes: -ISOVUE-300 61% 100ML VIAL As Ordered ONE; -LIDOCAINE 1% MDV 20ML VIAL As Ordered ONE; -MIDAZOLAM INJ 2MG/2ML VIAL As Ordered ONE; -ceFAZolin 2 GM/D5W 50 ML IV BAG As Ordered ONE; -ceFAZolin SOD 2 GM in IV 1 EA IV ONE; -fentaNYL 100 MCG/2 ML INJECTION As Ordered ONE
== END ==
LOC: M SFHCPLAZ 17:07
PROVIDERS: ATTEND Student in an Organized Health Care Education/Training Program
DX: E78.1 Pure hyperglyceridemia (principal)

== ENCOUNTER → 2023-05-31 | Outpatient (CLI) | payer MEDICARE, MEDICAID | LOC: M RAD 08:00 | PROVIDERS: ATTEND Physician Assistant | DX: I73.9 Peripheral vascular disease, unspecified (principal); R25.2 Cramp and spasm ==

== ENCOUNTER → 2023-06-30 | Outpatient (REF) | payer MEDICARE, MEDICAID | LOC: EEVIPCON 16:24 → M SFHCWOUN 16:24 | PROVIDERS: ATTEND Physician Assistant | DX: S88.111A Complete traumatic amputation at level between knee and ankle, right lower leg, initial encounter (principal); T81.31XA Disruption of external operation (surgical) wound, not elsewhere classified, initial encounter; X58.XXXA Exposure to other specified factors, initial encounter; Y92.9 Unspecified place or not applicable; Y93.9 Activity, unspecified; Y99.9 Unspecified external cause status ==

== ENCOUNTER → 2023-10-27 | Outpatient (CLI) | payer MEDICARE, MEDICAID ==
[~2023-10-27] MED LIST changes: -HYDR-3910 PO; +HYDR25TA87 PO
[2023-10-27 15:40] LABS: HEMOGLOBIN A1c 4.6 % (4.0-6.0)
[2023-10-27 15:57] LABS: ALBUMIN 3.5 G/DL (3.2-5.2); ALKALINE PHOSPHATASE 103 U/L (46-116); ALT/SGPT 23 U/L (7.0-40); AST/SGOT 10 U/L (<34); BILIRUBIN,TOTAL 0.4 MG/DL (0.3-1.2); BLOOD UREA NITROGEN 28 MG/DL (9-23); CALCIUM LEVEL 8.8 MG/DL (8.5-10.1); CARBON DIOXIDE LEVEL 33 MMOL/L (20-31); CHLORIDE LEVEL 94 MMOL/L (98-107); CHOLESTEROL LEVEL 77 MG/DL (<200); CHOLESTEROL RISK RATIO 3.64 (<5); GLOMERULAR FILTRATION RATE 10.4 (>56); GLUCOSE, FASTING 190 MG/DL (60-100); NON-HDL-C 55.9 MG/DL; SODIUM LEVEL 136 MMOL/L (136-145); TOTAL PROTEIN 6.8 G/DL (5.7-8.2); TRIGLYCERIDES LEVEL 332 MG/DL (<150)
[2023-10-27 16:01] LABS: THYROID STIMULATING HORMONE 1.388 uIU/ML (0.55-4.78)
[2023-10-27 16:04] LABS: TOTAL 25(OH) VITAMIN D 40.8 NG/ML (20.0-100.0)
[2023-10-27 18:02] LABS: HDL CHOLESTEROL 21.1 MG/DL (>40)
== END ==
LOC: M PLALAB 13:52
PROVIDERS: ATTEND Student in an Organized Health Care Education/Training Program
DX: B35.4 Tinea corporis (principal); E11.621 Type 2 diabetes mellitus with foot ulcer; Z79.899 Other long term (current) drug therapy

== ENCOUNTER → 2023-10-27 | Outpatient (CLI) | payer MEDICARE, MEDICAID | LOC: M RAD 07:49 | PROVIDERS: ATTEND Internal Medicine | DX: Z01.818 Encounter for other preprocedural examination (principal); N18.6 End stage renal disease; Z94.0 Kidney transplant status ==

== ENCOUNTER → 2024-05-15 | Outpatient (REF) | payer OTHER ==
[~2024-05-15] MED LIST changes: -ROSU10TA6 PO; +ROSU10TA61 PO
== END ==
LOC: M PLAIMG 12:55 → EDSTATUS 13:30
PROVIDERS: ATTEND Surgery
DX: Z01.818 Encounter for other preprocedural examination (principal)

== ENCOUNTER 2024-07-30 09:51 | Inpatient (IN) | payer MEDICARE, MEDICAID ==
[~2024-07-30] VITALS: Ht 177.8 cm; Wt 131.5 kg
[2024-07-30 10:34] LABS: BASO % 0.7 % (0.0-1.0); EOS # 0.1 10^3/uL (0.0-0.5); EOS % 1.4 % (0.0-3.0); HEMATOCRIT 29.6 % (42.0-52.0); HEMOGLOBIN 10.4 g/dl (13.5-17.5); LYMPH # 0.8 10^3/uL (1.5-5.0); LYMPH % 14.3 % (24.0-44.0); MEAN CORPUSCULAR HEMOGLOBIN 33.5 pg (27.0-33.0); MEAN CORPUSCULAR HGB CONC 35.1 g/dl (32.0-36.5); MEAN CORPUSCULAR VOLUME 95.5 fl (80.0-96.0); MONO # 0.5 10^3/uL (0.0-0.8); MONO % 8.6 % (2.0-8.0); NEUTROPHILS # 4.2 10^3/uL (1.5-8.5); NEUTROPHILS % 74.6 % (36.0-66.0); PLATELET COUNT, AUTOMATED 181 10^3/uL (150-450); WHITE BLOOD COUNT 5.6 10^3/uL (4.0-10.0)
[2024-07-30 10:48] LABS: OSMOLALITY SERUM 294 MOSM/KG (275-295)
[2024-07-30 11:00] LABS: CK-MB VALUE MASS 1.6 NG/ML (<3.6); ETHYL ALCOHOL (ETHANOL) 0.007 % (0.000-0.010)
[2024-07-30 11:02] LABS: ALBUMIN 3.7 G/DL (3.2-5.2); ALKALINE PHOSPHATASE 96 U/L (40-129); ALT/SGPT 19 U/L (7.0-40); AST/SGOT 13 U/L (<34); BILIRUBIN,DIRECT 0.1 MG/DL (<0.4); BILIRUBIN,TOTAL 0.4 MG/DL (0.3-1.2); BLOOD UREA NITROGEN 30 MG/DL (9-23); CALCIUM LEVEL 9.1 MG/DL (8.5-10.1); CARBON DIOXIDE LEVEL 30 MMOL/L (20-31); CHLORIDE LEVEL 98 MMOL/L (98-107); CPK CREATINE PHOSPHOKINASE 133 U/L (46-171); CREATININE FOR GFR 5.18 MG/DL (0.70-1.30); GLOMERULAR FILTRATION RATE 12.2 (>56); GLUCOSE, FASTING 184 MG/DL (60-100); POTASSIUM SERUM 3.1 MMOL/L (3.5-5.1); SALICYLATE LEVEL < 3.0 MG/DL (<30); SODIUM LEVEL 138 MMOL/L (136-145); TOTAL PROTEIN 7.3 G/DL (5.7-8.2)
[2024-07-30] MEDS ORDERED: ALLO100T PO (11:12)
[2024-07-30] MEDS ORDERED: DULA3PEN INJ (11:12)
[2024-07-30] MEDS ORDERED: ERGO500029 PO (11:12)
[2024-07-30] MEDS ORDERED: FISH1CAP26 PO (11:12)
[2024-07-30] MEDS ORDERED: HUMA100I5 SC (11:12)
[2024-07-30] MEDS ORDERED: VELP5CHW PO (11:14)
[2024-07-30] MEDS ORDERED: VASC1CAP2 PO (11:14)
[2024-07-30] MEDS ORDERED: HOME MED LIST COMPLETE! XX SCH (11:15)
[2024-07-30 13:08] LABS: CK-MB VALUE MASS 1.4 NG/ML (<3.6)
[2024-07-30 13:09] LABS: MB/CK RELATIVE INDEX 0.96 (< OR =4)
[2024-07-30] MEDS ORDERED: GLUCAGON INJ 1MG VIAL SC PRN (13:30)
[2024-07-30] MEDS ORDERED: ACETAMINOPHEN 325 MG TAB PO PRN (13:30)
[2024-07-30] MEDS ORDERED: DEXTROSE 50% 50ML SYRINGE IV PRN (13:30)
[2024-07-30] MEDS ORDERED: GLUCOSE 4 GM CHEW PO PRN (13:30)
[2024-07-30] MEDS ORDERED: MOM 30ML SUSPENSION UDC PO PRN (13:30)
[2024-07-30] MEDS: **hydrALAZINE** 50 MG TAB PO ONE (14:53)
[2024-07-30 16:15] VITALS: BP 172/79; TEMP 97.7; O2SAT 97
[2024-07-30] MEDS: (RENVELA) SEVELAMER **CARBONate** 800 MG TAB PO SCH (17:14)
[2024-07-30] MEDS: INSULIN LISPRO (NovoLOG) PER UNIT SC SCH ×2 (17:14→22:16)
[2024-07-30] MEDS: SUCROFERRIC OXYHYDROXIDE 500MG CHEW TAB (VELPHORO) PO SCH (17:15)
[2024-07-30 20:06] VITALS: BP 146/63; TEMP 97.9; O2SAT 97
[2024-07-30] MEDS: ROSUVASTATIN 10 MG TAB (CRESTOR) PO SCH (22:37)
[2024-07-30] MEDS: DOCUSATE SODIUM 100MG CAPSULE PO SCH (22:38)
[2024-07-30] MEDS: HEPARIN SOD (PORCINE) 5000UNITS/ML 1ML VIAL/SYRINGE SC SCH (22:38)
[2024-07-30] MEDS: FAMOTIDINE 20 MG TAB PO SCH (22:38)
[2024-07-30] MEDS: LEVEMIR (INSULIN DETEMIR) 1 UNITS/0.01ML SC SCH (22:39)
[2024-07-30 22:48] VITALS: BP_SYST 147; BP_SYST 170; BP_DIAS 68; BP_DIAS 69; BP_DIAS 81
[2024-07-30] MEDS: **hydrALAZINE HCL** 25 MG TAB PO SCH (22:57)
[2024-07-31] VITALS (7 sets, daily range): BP systolic 116–158; BP diastolic 68–74; TEMP 97.2–97.7; O2SAT 89–98
[2024-07-31] MEDS: NORCO, ANEXSIA 5/325MG TABLET (HYDROcodone/ACETAMINOPHEN) PO ONE (03:16)
[2024-07-31 06:11] LABS: HEMATOCRIT 29.1 % (42.0-52.0); MEAN CORPUSCULAR HEMOGLOBIN 33.4 pg (27.0-33.0); MEAN CORPUSCULAR HGB CONC 34.4 g/dl (32.0-36.5); MEAN CORPUSCULAR VOLUME 97.3 fl (80.0-96.0); PLATELET COUNT, AUTOMATED 196 10^3/uL (150-450); RED BLOOD COUNT 2.99 10^6/uL (4.30-6.10); WHITE BLOOD COUNT 6.1 10^3/uL (4.0-10.0)
[2024-07-31 06:41] LABS: CALCIUM LEVEL 8.3 MG/DL (8.5-10.1); CREATININE FOR GFR 8.31 MG/DL (0.70-1.30); GLOMERULAR FILTRATION RATE 7.1 (>56); POTASSIUM SERUM 4.1 MMOL/L (3.5-5.1)
[2024-07-31] MEDS: allopurinoL 100 MG TAB PO SCH (09:22)
[2024-07-31] MEDS: OMEGA-3 1000MG CAPSULE PO SCH (09:22)
[2024-07-31] MEDS: amLODIPine 5 MG TAB PO SCH (09:26)
[2024-07-31] MEDS ORDERED: TOUJ1.2I SC (11:40)
== END 2024-07-31 12:31 | disposition home or self-care (01) | DRG 312 ==
LOC: M ED 09:51 → EDBD 09:51 → M ED INP 13:30 → EEVIPCON 13:30 → M MSPAV 16:14
PROVIDERS: ADMIT Student in an Organized Health Care Education/Training Program; ATTEND Internal Medicine Nephrology
PROC: B246ZZZ Ultrasonography of Right and Left Heart (ICD-10-PCS; principal; 2024-07-30)
DX: I95.3 Hypotension of hemodialysis (principal); N18.6 End stage renal disease; I13.2 Hypertensive heart and chronic kidney disease with heart failure and with stage 5 chronic kidney disease, or end stage renal disease; E87.20 Acidosis, unspecified; I50.32 Chronic diastolic (congestive) heart failure; N25.81 Secondary hyperparathyroidism of renal origin; Z68.41 Body mass index [BMI] 40.0-44.9, adult; E11.22 Type 2 diabetes mellitus with diabetic chronic kidney disease; E11.51 Type 2 diabetes mellitus with diabetic peripheral angiopathy without gangrene; E11.42 Type 2 diabetes mellitus with diabetic polyneuropathy; E66.01 Morbid (severe) obesity due to excess calories; E87.6 Hypokalemia; E78.5 Hyperlipidemia, unspecified; G47.33 Obstructive sleep apnea (adult) (pediatric); M10.9 Gout, unspecified; D63.1 Anemia in chronic kidney disease; K21.9 Gastro-esophageal reflux disease without esophagitis; Z89.511 Acquired absence of right leg below knee; Z87.442 Personal history of urinary calculi; Z99.2 Dependence on renal dialysis; Z79.4 Long term (current) use of insulin; Z79.899 Other long term (current) drug therapy

== ENCOUNTER 2024-10-22 09:31 | Emergency (ER) | payer MEDICARE, MEDICAID ==
[~2024-10-22] VITALS: Ht 177.8 cm; Wt 131.8 kg
[~2024-10-22 09:31] MED LIST changes: +DULA3PEN INJ; +ERGO500029 PO; +FISH1CAP26 PO; +HUMA100I5 SC; +VASC1CAP2 PO; +VELP5CHW PO
[2024-10-22] MEDS ORDERED: ISOVUE-370 76% 100ML VIAL As Ordered ONE (09:43)
[2024-10-22] MEDS: levETIRAcetam INJection 500 MG in DEXTROSE 5% (D5W) MINI-BAG PLU 100 ML IV ONE (10:58)
[2024-10-22 10:59] LABS: BASO % 0.4 % (0.0-1.0); EOS # 0.1 10^3/uL (0.0-0.5); HEMATOCRIT 27.5 % (42.0-52.0); HEMOGLOBIN 9.1 g/dl (13.5-17.5); LYMPH # 0.7 10^3/uL (1.5-5.0); LYMPH % 13.2 % (24.0-44.0); MEAN CORPUSCULAR HEMOGLOBIN 32.6 pg (27.0-33.0); MEAN CORPUSCULAR HGB CONC 33.1 g/dl (32.0-36.5); MEAN CORPUSCULAR VOLUME 98.6 fl (80.0-96.0); MONO # 0.4 10^3/uL (0.0-0.8); MONO % 8.3 % (2.0-8.0); NEUTROPHILS # 3.8 10^3/uL (1.5-8.5); NEUTROPHILS % 76.9 % (36.0-66.0); PLATELET COUNT, AUTOMATED 173 10^3/uL (150-450); RED BLOOD COUNT 2.79 10^6/uL (4.30-6.10); WHITE BLOOD COUNT 4.9 10^3/uL (4.0-10.0)
[2024-10-22 11:08] LABS: ALBUMIN 3.3 G/DL (3.2-5.2); BILIRUBIN,DIRECT 0.1 MG/DL (<0.4); BILIRUBIN,TOTAL 0.3 MG/DL (0.3-1.2); CREATININE FOR GFR 5.63 MG/DL (0.70-1.30); POTASSIUM SERUM 3.7 MMOL/L (3.5-5.1); TOTAL PROTEIN 6.4 G/DL (5.7-8.2)
[2024-10-22 11:11] LABS: CK-MB VALUE MASS 1.3 NG/ML (<3.6); INR 0.97; MB/CK RELATIVE INDEX 1.36 (< OR =4); PARTIAL THROMBOPLASTIN TIME 30.4 SECONDS (24.8-34.2); PROTHROMBIN TIME 13.2 SECONDS (12.5-14.5)
[2024-10-22] MEDS ORDERED: LOSA25TA13 PO (12:09)
[2024-10-22] MEDS ORDERED: BRIM0.2S13 OU (12:10)
[2024-10-22] MEDS ORDERED: XALA0.007 OU (12:10)
[2024-10-22] MEDS ORDERED: HOME MED LIST COMPLETE! XX SCH (12:15)
[2024-10-22 12:28] VITALS: TEMP 96.2
[2024-10-22 12:35] LABS: CK-MB VALUE MASS 1.5 NG/ML (<3.6)
[2024-10-22 12:37] LABS: MB/CK RELATIVE INDEX 1.4 (< OR =4)
[2024-10-22 14:30] VITALS: BP 128/59; O2SAT 90
[2024-10-22] MEDS ORDERED: KEPP1TAB PO (14:59)
== END 2024-10-22 15:10 | disposition home or self-care (01) ==
LOC: EDBD 09:31 → M ED 09:31 → EDSEX 09:31 → M ED 15:10
DX: G40.89 Other seizures (principal); I49.3 Ventricular premature depolarization; I45.81 Long QT syndrome; I10 Essential (primary) hypertension; K21.9 Gastro-esophageal reflux disease without esophagitis; F17.210 Nicotine dependence, cigarettes, uncomplicated; F10.10 Alcohol abuse, uncomplicated; Z79.4 Long term (current) use of insulin; Z79.899 Other long term (current) drug therapy
CPT/HCPCS: 70450; 70496; 70498; 71045; 80047; 80048; 80076; 82550; 82553; 83605; 84484; 85025; 85610; 85730; 86850; 86900; 86901; 87040; 93005; 93041; 94760; 96365; 99285; J1953; Q9967

== ENCOUNTER → 2025-05-06 | Outpatient (CLI) | payer MEDICARE, MEDICAID ==
[~2025-05-06] MED LIST changes: +AMLO-751 PO; -AMLO10TA PO; +BRIM0.2S13 OU; +KEPP1TAB PO; +LOSA25TA13 PO; -ROSU10TA61 PO; +ROSU10TA90 PO; +XALA0.007 OU
[2025-05-06 17:23] LABS: CALCIUM LEVEL 9.9 MG/DL (8.5-10.1); CARBON DIOXIDE LEVEL 35 MMOL/L (20-31); CHLORIDE LEVEL 94 MMOL/L (98-107); CHOLESTEROL LEVEL 98 MG/DL (<200); CHOLESTEROL RISK RATIO 4.13 (<5); CREATININE FOR GFR 5.65 MG/DL (0.70-1.30); GLOMERULAR FILTRATION RATE 10.9 (>56); NON-HDL-C 74.3 MG/DL; POTASSIUM SERUM 4.0 MMOL/L (3.5-5.1); SODIUM LEVEL 138 MMOL/L (136-145); TRIGLYCERIDES LEVEL 478 MG/DL (<150)
[2025-05-06 17:53] LABS: ESTIMATED AVERAGE GLUCOSE 111.0 MG/DL (60-110)
== END ==
LOC: M PLALAB 14:14
PROVIDERS: ATTEND Student in an Organized Health Care Education/Training Program
DX: R56.9 Unspecified convulsions (principal); I10 Essential (primary) hypertension; E11.621 Type 2 diabetes mellitus with foot ulcer; E78.2 Mixed hyperlipidemia; L97.509 Non-pressure chronic ulcer of other part of unspecified foot with unspecified severity